=== PATIENT | male | born 1950 | race Caucasian/White ===

== ENCOUNTER 2016-06-29 19:40 | Emergency (ER) | payer MEDICARE ==
[~2016-06-29] VITALS: Ht 172.7 cm; Wt 106.6 kg
[~2016-06-29 19:40] MED LIST: /BACIOPOI OP; /CIPR75TA OR; /DULO30CA OR; /GLIP10TAB OR; /GLIP10TAB PO; /MOXI40TA OR; /MOXI40TA PO; /PANT40TA PO; ACET65TA OR; ACTO45TA OR; ACTO45TA PO; ALLO300T PO; ALPHAGAN OU; AMLO5TAB PO; ASPI1TAB PO; ASPI81TA83 OR; ASPI81TA83 PO; ATOR40TA PO; AVAP300T OR; AVAP300T PO; CEFT500T PO; CLEO300C OR; COLA100C2 OR; COSO1SOL3 OU; DUONSOL INH; FERR325T PO; FERROUS SULFATE PO; GLIP10TA13 PO; GLIP10TA58 PO; GLIP10TA97 OR; GLUC1000 PO; GLUC10TA18 PO; GLUC500T PO; HYDR25TA6 OR; HYDR25TA6 PO; HYDR25TAB PO; IMDU60TA OR; INSULADS SC; INSULANT SC; IRBE150T12 PO; ISMO20TA OR; ISMO20TA PO; ISOS120T4 PO; LIPI20TA PO; Levemir SC; Lumigan OU; METAMUCIL PO; METF500T PO; METO-207 PO; METOPROLOL SUCCINATE PO; NITR0.4S SL; NORV5TAB OR; OCEAN NASAL SPRAY; PANT40TA2 PO; PATA2.5S OU; PATANOL OPTHALMIC OU; PATANOL OU; PLAV75TA2 PO; PRED10TA2 PO; RANE1000 PO; ROBITUSSIN PO; TOPR100T OR; TOPR25TA OR; TOPR25TA PO; TUSSSUS5 OR; VENL37TA PO; Vitamin D2 PO; [UNRECOGNIZED DRUG - CODE] OU; [UNRECOGNIZED DRUG - OTHER] PO; levemir SQ; lumigan; nitro SL; timolol; vitamin D2 PO
[2016-06-29 20:47] VITALS: BP 158/83
== END 2016-06-29 20:48 | disposition home or self-care (01) ==
LOC: M ED 20:32
DX: T17.920A Food in respiratory tract, part unspecified causing asphyxiation, initial encounter (principal); X58.XXXA Exposure to other specified factors, initial encounter; Y92.511 Restaurant or cafe as the place of occurrence of the external cause; Y93.89 Activity, other specified; Y99.8 Other external cause status; E11.9 Type 2 diabetes mellitus without complications; I10 Essential (primary) hypertension; G47.30 Sleep apnea, unspecified; Z93.0 Tracheostomy status; Z95.5 Presence of coronary angioplasty implant and graft; Z91.041 Radiographic dye allergy status; Z91.040 Latex allergy status; Z79.84 Long term (current) use of oral hypoglycemic drugs; Z79.899 Other long term (current) drug therapy; Z79.82 Long term (current) use of aspirin; Z79.4 Long term (current) use of insulin

== ENCOUNTER 2016-07-13 11:11 | Emergency (ER) | payer MEDICARE ==
[~2016-07-13] VITALS: Ht 177.8 cm; Wt 107.0 kg
[2016-07-13] MEDS ORDERED: TRUL0.5I SC (11:40)
[2016-07-13] MEDS ORDERED: KETOROLAC 30 MG/ML VIAL (J1885) IV ONE (12:30)
[2016-07-13] MEDS ORDERED: ONDANSETRON 4MG/2ML VIAL (J2405) IV ONE (12:30)
--- NOTE | 2016-07-13 13:16 | REP ---
Clinical: Left lower quadrant pain. Comparison: 01/10/2016. Findings: Lung bases clear. Liver, spleen, pancreas, and bilateral adrenal glands are normal. Gallbladder demonstrates a single 2 mm gallstone. Kidneys demonstrate few bilateral nonobstructing calculi measuring up to 6 mm without perinephric stranding or hydroureteronephrosis and no obstructing ureteral calculi. The enteric system is without obstruction or acute inflammatory process. Sigmoid diverticulosis noted without acute diverticulitis. Pelvis demonstrates normal bladder and age appropriate prostate/seminal vesicles. No free air. No ascites. No adenopathy. Abdominal aorta without aneurysm. Musculoskeletal structures intact. Impression: 1. No acute intra-abdominal or pelvic pathology appreciated 2. Bilateral nephrolithiasis up to 6 mm without acute obstruction. 3. Sigmoid diverticula without acute diverticulitis. 4. Cholelithiasis without acute cholecystitis. Signed by Harjit Silva MD 07/13/2016 01:07 P
[2016-07-13 13:33] LABS: BASO # 0.1 K/mm3 (0.0-0.2); BASO % 0.7 % (0.0-1.0); EOS # 0.1 K/mm3 (0.0-0.50); LARGE UNSTAINED CELL # 0.2 K/mm3 (0.0-0.4); LARGE UNSTAINED CELL % 1.8 % (0.0-4.0); LYMPH % 22.3 % (24.0-44.0); MEAN CORPUSCULAR HEMOGLOBIN 28.6 pg (27.0-33.0); MEAN CORPUSCULAR HGB CONC 34.9 g/dl (32.0-36.5); MONO # 0.6 K/mm3 (0.0-0.8); MONO % 6.4 % (0.0-5.0); NEUTROPHILS # 6.2 K/mm3 (1.8-7.7); NEUTROPHILS % 67.9 % (36.0-66.0); PLATELET COUNT, AUTOMATED 275 k/mm3 (150-450); RED CELL DISTRIBUTION WIDTH 13.2 % (11.5-14.5); WHITE BLOOD COUNT 9.1 K/mm3 (4.0-10.0)
[2016-07-13 13:54] LABS: ALBUMIN 4.2 GM/DL (3.2-5.2); ALBUMIN/GLOBULIN RATIO 1.27 (1.00-1.93); ALKALINE PHOSPHATASE 63 U/L (45-117); ALT/SGPT 24 U/L (12-78); ANION GAP 9 MEQ/L (8-16); AST/SGOT 13 U/L (15-37); BILIRUBIN,DIRECT 0.2 MG/DL (0.0-0.2); BILIRUBIN,TOTAL 0.7 MG/DL (0.2-1.0); BLOOD UREA NITROGEN 13 MG/DL (7-18); CALCIUM LEVEL 9.5 MG/DL (8.8-10.2); CARBON DIOXIDE LEVEL 26 MEQ/L (21-32); CHLORIDE LEVEL 106 MEQ/L (98-107); CREATININE FOR GFR 0.83 MG/DL (0.70-1.30); GLOMERULAR FILTRATION RATE > 60.0 (>49); GLUCOSE, FASTING 93 MG/DL (80-110); POTASSIUM SERUM 3.7 MEQ/L (3.5-5.1); SODIUM LEVEL 141 MEQ/L (136-145); TOTAL PROTEIN 7.5 GM/DL (6.4-8.2)
[2016-07-13] MEDS ORDERED: ZOFR4TAB3 PO (13:59)
[2016-07-13 14:24] VITALS: BP 145/75
== END 2016-07-13 14:25 | disposition home or self-care (01) ==
LOC: M ED 11:57
DX: A09 Infectious gastroenteritis and colitis, unspecified (principal); I25.10 Atherosclerotic heart disease of native coronary artery without angina pectoris; Z87.442 Personal history of urinary calculi; Z91.041 Radiographic dye allergy status; Z91.040 Latex allergy status; Z79.899 Other long term (current) drug therapy; Z79.84 Long term (current) use of oral hypoglycemic drugs; Z79.82 Long term (current) use of aspirin; K42.9 Umbilical hernia without obstruction or gangrene; G47.30 Sleep apnea, unspecified; I10 Essential (primary) hypertension; E11.9 Type 2 diabetes mellitus without complications; F41.9 Anxiety disorder, unspecified; F32.9 Major depressive disorder, single episode, unspecified
CPT/HCPCS: 36415; 74176; 80048; 80076; 81001; 83690; 85025; 87086; 96374; 96375; 99282; J1885; J2405

== ENCOUNTER 2016-09-21 11:36 | Emergency (ER) | payer MEDICARE ==
[~2016-09-21] VITALS: Ht 175.3 cm; Wt 104.3 kg
[~2016-09-21 11:36] MED LIST changes: +TRUL0.5I SC; +ZOFR4TAB3 PO
[2016-09-21] MEDS ORDERED: NITR0.4S14 SL (12:04)
[2016-09-21 12:14] LABS: BASO % 0.4 % (0.0-1.0); EOS # 0.1 K/mm3 (0.0-0.50); EOS % 1.5 % (0.0-3.0); LARGE UNSTAINED CELL # 0.1 K/mm3 (0.0-0.4); LARGE UNSTAINED CELL % 1.8 % (0.0-4.0); MEAN CORPUSCULAR HEMOGLOBIN 28.5 pg (27.0-33.0); MEAN CORPUSCULAR HGB CONC 34.6 g/dl (32.0-36.5); MEAN CORPUSCULAR VOLUME 82.3 fl (80.0-96.0); MONO # 0.5 K/mm3 (0.0-0.8); MONO % 6.2 % (0.0-5.0); NEUTROPHILS # 4.7 K/mm3 (1.8-7.7); NEUTROPHILS % 64.2 % (36.0-66.0); PLATELET COUNT, AUTOMATED 233 k/mm3 (150-450); RED CELL DISTRIBUTION WIDTH 12.8 % (11.5-14.5); WHITE BLOOD COUNT 7.2 K/mm3 (4.0-10.0)
[2016-09-21] MEDS ORDERED: ONDANSETRON 4MG/2ML VIAL (J2405) IV ONE (12:30)
[2016-09-21] MEDS ORDERED: MORPHINE 4 MG/ML 1ML SYRINGE IV PRN (12:30)
[2016-09-21 12:39] LABS: ANION GAP 10 MEQ/L (8-16); BLOOD UREA NITROGEN 20 MG/DL (7-18); CALCIUM LEVEL 9.7 MG/DL (8.8-10.2); CARBON DIOXIDE LEVEL 25 MEQ/L (21-32); CHLORIDE LEVEL 104 MEQ/L (98-107); CREATININE FOR GFR 0.85 MG/DL (0.70-1.30); GLOMERULAR FILTRATION RATE > 60.0 (>49); GLUCOSE, FASTING 122 MG/DL (80-110); POTASSIUM SERUM 3.6 MEQ/L (3.5-5.1); SODIUM LEVEL 139 MEQ/L (136-145)
[2016-09-21] MEDS: HYDROmorphone HCL 1 MG/ML SYRINGE (J1170) IV PRN ×2 (13:44→15:21)
--- NOTE | 2016-09-21 17:29 | REP ---
On portable chest, 06:15 p.m., 09/21/2016: Comparison is 06/14/2015. Tracheostomy and cardiomegaly are unchanged. Lung russ are clear. The lizbet, mediastinum, bony thorax are unremarkable. Impression: There are no acute cardiopulmonary findings. Tracheostomy and cardiomegaly are unchanged. Signed by Khalif Valdez MD 09/21/2016 05:20 P
[2016-09-21 18:36] VITALS: BP 128/69
--- NOTE | 2016-09-23 07:03 | ECGEPIP ---
Stationary ECG Study [facility] - ED Test Date: 2016-09-21 Pat Name: TARSHA GARRISON Department: Room: - Gender: M Drugless Physician: PB : 1950 Requested By: Myra Blake Order Number: [id number] Reading MD: Myra Blake Measurements Intervals [place] Rate: 60 P: -7 SC: 211 QRS: -29 QRSD: 105 T: 11 QT: 414 QTc: 414 Interpretive Statements SINUS RHYTHM WITH FIRST DEGREE AV BLOCK BORDERLINE LEFT AXIS DEVIATION NSTTW ABNORMALITY SIMILAR 01/10/16 Electronically Signed On 09-23-2016 7:03:24 EDT by Myra Blake
== END 2016-09-21 19:22 | disposition home or self-care (01) ==
LOC: M ED 12:18
DX: R07.9 Chest pain, unspecified (principal); E11.9 Type 2 diabetes mellitus without complications; I10 Essential (primary) hypertension; E78.5 Hyperlipidemia, unspecified; I25.10 Atherosclerotic heart disease of native coronary artery without angina pectoris; G47.30 Sleep apnea, unspecified; Z95.5 Presence of coronary angioplasty implant and graft; Z79.899 Other long term (current) drug therapy; Z79.82 Long term (current) use of aspirin; Z79.84 Long term (current) use of oral hypoglycemic drugs; Z79.4 Long term (current) use of insulin; Z91.040 Latex allergy status; Z91.041 Radiographic dye allergy status
CPT/HCPCS: 71010; 80048; 82550; 82553; 84484; 85025; 93005; 93041; 94760; 96374; 96375; 96376; 99285; J1170; J2405

== ENCOUNTER 2016-10-30 10:56 | Emergency (ER) | payer MEDICARE ==
[~2016-10-30] VITALS: Ht 175.3 cm; Wt 106.2 kg
[~2016-10-30 10:56] MED LIST changes: -ATOR40TA PO; +ATOR40TA75 PO; -GLIP10TA13 PO; -GLIP10TA58 PO; +GLIP1TAB11 PO; +GLIP1TAB51 PO; -METF500T PO; +METF500T13 PO; -METO-207 PO; +METO1TAB7 PO; +NITR0.4S14 SL
[2016-10-30] MEDS ORDERED: SODIUM CHLORIDE 0.9% 3ML NEB SOLUTION FOR INHALATION INH ONE (11:15)
[2016-10-30] MEDS: NITROGLYCERIN 0.4 MG SUBL TABLET SL PRN ×3 (11:42→12:07)
[2016-10-30 12:07] VITALS: BP 128/60
[2016-10-30 12:10] LABS: BASO % 0.5 % (0.0-1.0); EOS # 0.1 K/mm3 (0.0-0.50); EOS % 1.2 % (0.0-3.0); LARGE UNSTAINED CELL # 0.1 K/mm3 (0.0-0.4); LARGE UNSTAINED CELL % 1.1 % (0.0-4.0); LYMPH # 1.5 K/mm3 (1.5-4.5); LYMPH % 19.6 % (24.0-44.0); MEAN CORPUSCULAR HEMOGLOBIN 28.2 pg (27.0-33.0); MEAN CORPUSCULAR HGB CONC 34.4 g/dl (32.0-36.5); MEAN CORPUSCULAR VOLUME 81.8 fl (80.0-96.0); MONO # 0.4 K/mm3 (0.0-0.8); MONO % 5.6 % (0.0-5.0); NEUTROPHILS # 5.2 K/mm3 (1.8-7.7); PLATELET COUNT, AUTOMATED 231 k/mm3 (150-450); RED CELL DISTRIBUTION WIDTH 13.3 % (11.5-14.5); WHITE BLOOD COUNT 7.3 K/mm3 (4.0-10.0)
[2016-10-30 12:29] LABS: ANION GAP 11 MEQ/L (8-16); BLOOD UREA NITROGEN 17 MG/DL (7-18); CALCIUM LEVEL 9.1 MG/DL (8.8-10.2); CARBON DIOXIDE LEVEL 21 MEQ/L (21-32); CHLORIDE LEVEL 107 MEQ/L (98-107); GLOMERULAR FILTRATION RATE > 60.0 (>49); GLUCOSE, FASTING 155 MG/DL (80-110); POTASSIUM SERUM 3.6 MEQ/L (3.5-5.1); SODIUM LEVEL 139 MEQ/L (136-145)
--- NOTE | 2016-10-30 12:36 | REP ---
PORTABLE CHEST: AP portable view of the chest is performed. Comparison 09/21/2016. There is cardiomegaly. Mediastinal silhouette is unchanged. There is no acute infiltrate. There is a tracheostomy tube again noted. IMPRESSION: Cardiomegaly. No acute infiltrate. Signed by Khalif Agee MD 10/30/2016 05:08 P
[2016-10-30 15:07] VITALS: BP 120/70
--- NOTE | 2016-10-31 18:19 | ECGEPIP ---
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
--- NOTE | 2016-10-31 18:20 | ECGEPIP ---
Stationary ECG Study [facility] - ED Test Date: 2016-10-30 Pat Name: TARSHA GARRISON Department: Room: - Gender: M Intermediate Frame Tender: susan : 1950 Requested By: David Hurt Order Number: [id number] Reading MD: Myra Blake Measurements Intervals [place] Rate: 56 P: 47 MA: 217 QRS: -21 QRSD: 107 T: 12 QT: 425 QTc: 411 Interpretive Statements SINUS BRADYCARDIA WITH FIRST DEGREE AV BLOCK BORDERLINE LEFT AXIS DEVIATION ?PRIOR INFERIOR INFARCT SIMIALR 10/30/16 11:42 Electronically Signed On 10-31-2016 18:19:49 EDT by Myra Blake
== END 2016-10-30 15:10 | disposition home or self-care (01) ==
LOC: M ED 10:56
DX: J70.5 Respiratory conditions due to smoke inhalation (principal); I25.10 Atherosclerotic heart disease of native coronary artery without angina pectoris; E11.9 Type 2 diabetes mellitus without complications; G47.33 Obstructive sleep apnea (adult) (pediatric); Z98.61 Coronary angioplasty status

== ENCOUNTER 2017-07-01 03:30 | Emergency (ER) | payer MEDICARE ==
[2017-07-01 04:22] LABS: BASO % 0.4 % (0.0-1.0); EOS # 0.1 10^3/uL (0.0-0.50); EOS % 1.1 % (0.0-3.0); HEMATOCRIT 38.4 % (42.0-52.0); HEMOGLOBIN 13.1 g/dl (14.0-18.0); IMMATURE GRANULOCYTE % 0.6 % (0-3.0); LYMPH # 1.5 10^3/uL (1.5-4.5); LYMPH % 16.2 % (24.0-44.0); MEAN CORPUSCULAR HEMOGLOBIN 28.1 pg (27.0-33.0); MEAN CORPUSCULAR HGB CONC 34.1 g/dl (32.0-36.5); MEAN CORPUSCULAR VOLUME 82.4 fl (80.0-96.0); MONO # 0.6 10^3/uL (0.0-0.8); MONO % 6.1 % (0.0-5.0); NEUTROPHILS # 6.8 10^3/uL (1.8-7.7); NEUTROPHILS % 75.6 % (36.0-66.0); PLATELET COUNT, AUTOMATED 237 10^3/uL (150-450); RED BLOOD COUNT 4.66 10^6/uL (4.30-6.10); RED CELL DISTRIBUTION WIDTH 12.6 % (11.5-14.5)
[2017-07-01 04:37] LABS: ANION GAP 10 MEQ/L (8-16); BLOOD UREA NITROGEN 19 MG/DL (7-18); CALCIUM LEVEL 8.7 MG/DL (8.8-10.2); CARBON DIOXIDE LEVEL 24 MEQ/L (21-32); CHLORIDE LEVEL 106 MEQ/L (98-107); CPK CREATINE PHOSPHOKINASE 113 U/L (39-308); CREATININE FOR GFR 1.01 MG/DL (0.70-1.30); GLOMERULAR FILTRATION RATE > 60.0 (>49); GLUCOSE, FASTING 253 MG/DL (70-100); MB/CK RELATIVE INDEX 0.88 (< OR =4); POTASSIUM SERUM 3.9 MEQ/L (3.5-5.1); SODIUM LEVEL 140 MEQ/L (136-145); TROPONIN I < 0.02 NG/ML (< 0.10)
[2017-07-01] MEDS: PANTOPRAZOLE 40MG INJ (PROTONIX) (C9113) IV (10:03)
[2017-07-01] MEDS: NITROGLYCERIN 0.4 MG SUBL TABLET SL ×3 (10:04→10:17)
[2017-07-01 10:11] LABS: CPK CREATINE PHOSPHOKINASE 76 U/L (39-308); MB/CK RELATIVE INDEX 1.31 (< OR =4); TROPONIN I < 0.02 NG/ML (< 0.10)
== END 2017-07-01 12:43 | disposition home or self-care (01) ==
LOC: M ED 03:30
DX: R07.89 Other chest pain (principal); F43.0 Acute stress reaction; I25.10 Atherosclerotic heart disease of native coronary artery without angina pectoris; E11.9 Type 2 diabetes mellitus without complications; I10 Essential (primary) hypertension; G47.33 Obstructive sleep apnea (adult) (pediatric); Z79.899 Other long term (current) drug therapy; Z79.82 Long term (current) use of aspirin; Z79.84 Long term (current) use of oral hypoglycemic drugs; Z91.041 Radiographic dye allergy status; Z91.040 Latex allergy status; Z95.1 Presence of aortocoronary bypass graft; Z98.890 Other specified postprocedural states; Z82.49 Family history of ischemic heart disease and other diseases of the circulatory system
CPT/HCPCS: C9113

== ENCOUNTER → 2018-06-03 | Outpatient (CLI) | payer MEDICARE ==
[~2018-06-03] MED LIST changes: +GLIP10TA18 PO; -GLIP1TAB51 PO; -PANT40TA2 PO; +PANT40TA3 PO; -TOPR25TA PO; +TOPR25TA13 PO; +ZOFR4TAB14 PO; -ZOFR4TAB3 PO
--- NOTE | 2018-06-03 11:58 | REP ---
Left shoulder three views: There are calcifications adjacent to the humeral tuberosities compatible with calcific tendonitis. Mineralization is normal. The acromioclavicular glenohumeral articulations are unremarkable. There is no fracture or dislocation. Impression: Calcifications as described, compatible with calcific tendonitis. Electronically Signed by Khalif Valdez MD 06/03/2018 11:50 A
== END ==
LOC: M WUC 10:17
PROVIDERS: ATTEND Physician Assistant
DX: M25.512 Pain in left shoulder (principal); M75.32 Calcific tendinitis of left shoulder

== ENCOUNTER → 2018-11-14 | Outpatient (CLI) | payer MEDICARE ==
[~2018-11-14] MED LIST changes: -/DULO30CA OR; -/MOXI40TA OR; -/MOXI40TA PO; -/PANT40TA PO; -ASPI1TAB PO; +ASPI81TA26 PO; +AVEL1TAB2 OR; +AVEL1TAB2 PO; +CYMB1CAP5 OR; +HYDR-2541 PO; -HYDR25TAB PO; -ISOS120T4 PO; +ISOS120T7 PO; +METO-1 OR; +METO-745 OR; +PROT1TAB2 PO; -TOPR100T OR; -TOPR25TA OR; +TOPR25TA PO; -TOPR25TA13 PO
--- NOTE | 2018-11-14 17:10 | REP ---
PA and lateral chest: Comparison is 05/24/2015. There are no infiltrates. No pleural effusions. The lung russ are clear and unchanged. There is chronic cardiomegaly, unchanged. The lizbet, mediastinum, skeletal structures are unremarkable and unchanged. There is a tracheostomy, unchanged. Impression: There are no acute cardiopulmonary findings. There is chronic cardiomegaly. There is a tracheostomy, unchanged. Electronically Signed by Khalif Valdez MD 11/14/2018 05:02 P
== END ==
LOC: M WUC 16:10
PROVIDERS: ATTEND Physician Assistant
DX: R05 Cough (principal)

== ENCOUNTER → 2019-01-20 | Outpatient (REF) | payer MEDICARE ==
[~2019-01-20] MED LIST changes: +CLOP75TA2 PO; +HYDR25TAB PO; +LATA0.0015 OU; +LEVO500T3 PO; +OXYC1TAB23 PO; +TIMO0.5S29; +[UNRECOGNIZED DRUG - OTHER]
== END ==
LOC: M LAB REF 16:01
PROVIDERS: ATTEND Physician Assistant Medical
DX: Z93.0 Tracheostomy status (principal)

== ENCOUNTER 2019-01-27 15:18 | Emergency (ER) | payer MEDICARE ==
[~2019-01-27] VITALS: Ht 172.7 cm; Wt 103.2 kg
[~2019-01-27 15:18] MED LIST changes: -CLOP75TA2 PO; -HYDR25TAB PO; -LATA0.0015 OU; -LEVO500T3 PO; -OXYC1TAB23 PO; -TIMO0.5S29; -[UNRECOGNIZED DRUG - OTHER]
[2019-01-27] MEDS ORDERED: TIMO0.5S29 (15:36)
[2019-01-27] MEDS ORDERED: LATA0.0015 OU (15:36)
[2019-01-27] MEDS ORDERED: LEVO500T3 PO (15:36)
[2019-01-27 16:00] LABS: BASO % 0.6 % (0.0-1.0); EOS # 0.2 10^3/uL (0.0-0.5); EOS % 2.1 % (0.0-3.0); HEMATOCRIT 38.9 % (42.0-52.0); HEMOGLOBIN 13.2 g/dl (13.5-17.5); LYMPH % 27.9 % (24.0-44.0); MEAN CORPUSCULAR HEMOGLOBIN 28.4 pg (27.0-33.0); MEAN CORPUSCULAR HGB CONC 33.9 g/dl (32.0-36.5); MEAN CORPUSCULAR VOLUME 83.7 fl (80.0-96.0); MONO # 0.7 10^3/uL (0.0-0.8); MONO % 9.5 % (0.0-5.0); NEUTROPHILS # 4.3 10^3/uL (1.5-8.5); NEUTROPHILS % 59.3 % (36.0-66.0); PLATELET COUNT, AUTOMATED 228 10^3/uL (150-450); RED BLOOD COUNT 4.65 10^6/uL (4.30-6.10); WHITE BLOOD COUNT 7.2 10^3/uL (4.0-10.0)
[2019-01-27 16:42] LABS: ALBUMIN 3.4 GM/DL (3.2-5.2); ALT/SGPT 26 U/L (12-78); BILIRUBIN,DIRECT 0.1 MG/DL (0.0-0.2); BILIRUBIN,TOTAL 0.6 MG/DL (0.2-1.0); BLOOD UREA NITROGEN 19 MG/DL (7-18); CALCIUM LEVEL 8.8 MG/DL (8.8-10.2); CARBON DIOXIDE LEVEL 25 MEQ/L (21-32); CHLORIDE LEVEL 106 MEQ/L (98-107); CK-MB VALUE MASS < 1.0 NG/ML (<3.6); CPK CREATINE PHOSPHOKINASE 81 U/L (39-308); CREATININE FOR GFR 0.86 MG/DL (0.70-1.30); GLOMERULAR FILTRATION RATE > 60.0 (>49); GLUCOSE, FASTING 95 MG/DL (70-100); LIPASE 98 U/L (73-393); MB/CK RELATIVE INDEX 1.23 (< OR =4); NT-PRO BNP 293 PG/ML (<125); POTASSIUM SERUM 3.8 MEQ/L (3.5-5.1); SODIUM LEVEL 142 MEQ/L (136-145); TOTAL PROTEIN 6.5 GM/DL (6.4-8.2); TROPONIN I < 0.02 NG/ML (< 0.10)
--- NOTE | 2019-01-27 17:24 | REP ---
PORTABLE CHEST: AP portable view of the chest was performed and compared to prior study of 11/14/2018. There is elevation of the right hemidiaphragm. No infiltrate is seen. There is cardiomegaly. There is mild calcification of the thoracic aorta. Tracheostomy tube is in place. IMPRESSION: Cardiomegaly. No evidence of acute infiltrate. Electronically Signed by Khalif Agee MD 01/27/2019 11:51 P
[2019-01-27] MEDS: NITROGLYCERIN 0.4 MG SUBL TABLET SL PRN ×2 (18:15→18:23)
[2019-01-27 18:23] VITALS: BP 150/70
[2019-01-27] MEDS ORDERED: GI COCKTAIL 50ML BTL(HYOSCYAMINE/MAALOX/LIDOCAINE VISCOUS)(1:3:1) PO ONE (18:30)
[2019-01-27 21:36] LABS: CK-MB VALUE MASS < 1.0 NG/ML (<3.6); CPK CREATINE PHOSPHOKINASE 80 U/L (39-308); MB/CK RELATIVE INDEX 1.25 (< OR =4); TROPONIN I < 0.02 NG/ML (< 0.10)
[2019-01-27 22:41] VITALS: BP 164/82
--- NOTE | 2019-01-28 00:52 | ECGEPIP ---
[facility] - ED Test Date: 2019-01-27 Pat Name: TARSHA GARRISON Department: Room: - Gender: Male Photogrammetric Tech: milan : 1950 Requested By: Myra Blake Order Number: [id number] Reading MD: Joe Osman Measurements Intervals [place] Rate: 47 P: 27 CT: 196 QRS: -35 QRSD: 109 T: 6 QT: 456 QTc: 403 Interpretive Statements SINUS BRADYCARDIA Left axis deviation Delayed anterior R wave progression Inferior Q waves of uncertain significance Similar to tracing done 07-01-17 with decreased rate Electronically Signed on 01-28-2019 0:52:34 EDT by Joe Osman
--- NOTE | 2019-01-28 01:01 | ECGEPIP ---
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
== END 2019-01-27 22:43 | disposition home or self-care (01) ==
LOC: M ED 15:18
DX: R07.89 Other chest pain (principal); R00.1 Bradycardia, unspecified; I45.89 Other specified conduction disorders; I25.10 Atherosclerotic heart disease of native coronary artery without angina pectoris; I51.7 Cardiomegaly; I50.9 Heart failure, unspecified; I10 Essential (primary) hypertension; E78.5 Hyperlipidemia, unspecified; F32.9 Major depressive disorder, single episode, unspecified; G89.29 Other chronic pain; M54.9 Dorsalgia, unspecified; G47.33 Obstructive sleep apnea (adult) (pediatric); Z95.5 Presence of coronary angioplasty implant and graft; Z98.61 Coronary angioplasty status; Z82.49 Family history of ischemic heart disease and other diseases of the circulatory system; Z79.82 Long term (current) use of aspirin; Z79.84 Long term (current) use of oral hypoglycemic drugs; Z79.899 Other long term (current) drug therapy; Z91.041 Radiographic dye allergy status; Z91.040 Latex allergy status

== ENCOUNTER 2019-02-01 12:06 | Emergency (ER) | payer MEDICARE ==
[~2019-02-01] VITALS: Ht 172.7 cm; Wt 100.0 kg
[~2019-02-01 12:06] MED LIST changes: +LATA0.0015 OU; +LEVO500T3 PO; +TIMO0.5S29
[2019-02-01] MEDS ORDERED: CLOP75TA2 PO (12:14)
[2019-02-01 12:34] LABS: BASO # 0.1 10^3/uL (0.0-0.2); BASO % 0.6 % (0.0-1.0); EOS # 0.1 10^3/uL (0.0-0.5); EOS % 1.3 % (0.0-3.0); HEMATOCRIT 41.2 % (42.0-52.0); HEMOGLOBIN 14.4 g/dl (13.5-17.5); LYMPH # 1.7 10^3/uL (1.5-5.0); LYMPH % 21.4 % (24.0-44.0); MEAN CORPUSCULAR HEMOGLOBIN 29.1 pg (27.0-33.0); MEAN CORPUSCULAR VOLUME 83.2 fl (80.0-96.0); MONO # 0.7 10^3/uL (0.0-0.8); MONO % 9.2 % (0.0-5.0); NEUTROPHILS # 5.2 10^3/uL (1.5-8.5); PLATELET COUNT, AUTOMATED 240 10^3/uL (150-450); RED BLOOD COUNT 4.95 10^6/uL (4.30-6.10); WHITE BLOOD COUNT 7.8 10^3/uL (4.0-10.0)
[2019-02-01] MEDS: NITROGLYCERIN 0.4 MG SUBL TABLET SL PRN ×3 (12:38→12:55)
[2019-02-01 12:55] VITALS: BP 141/74
[2019-02-01 13:00] LABS: INR 0.98; PROTHROMBIN TIME 12.6 SECONDS (11.8-14.0)
[2019-02-01 13:07] LABS: BLOOD UREA NITROGEN 23 MG/DL (7-18); CALCIUM LEVEL 9.4 MG/DL (8.8-10.2); CARBON DIOXIDE LEVEL 27 MEQ/L (21-32); CHLORIDE LEVEL 109 MEQ/L (98-107); CK-MB VALUE MASS < 1.0 NG/ML (<3.6); CPK CREATINE PHOSPHOKINASE 61 U/L (39-308); CREATININE FOR GFR 0.96 MG/DL (0.70-1.30); GLOMERULAR FILTRATION RATE > 60.0 (>49); GLUCOSE, FASTING 94 MG/DL (70-100); MB/CK RELATIVE INDEX 1.64 (< OR =4); POTASSIUM SERUM 3.8 MEQ/L (3.5-5.1); SODIUM LEVEL 143 MEQ/L (136-145); TROPONIN I < 0.02 NG/ML (< 0.10)
[2019-02-01] MEDS ORDERED: MORPHINE 4 MG/ML 1ML VIAL/SYRINGE (J2270) IV ONE (13:15)
--- NOTE | 2019-02-01 13:36 | REP ---
REASON FOR EXAM: Chest pain. COMPARISON: 01/27/2019 The technique utilized in obtaining the radiograph has magnified the cardiac silhouette and accentuated the interstitial markings. There is cardiomegaly accentuated by technique. The tracheotomy is unchanged. The lung russ are stable. No acute patchy parenchymal opacities or pleural effusions have developed. IMPRESSION: Cardiomegaly with no acute cardiopulmonary disease. No change from the prior exam. Electronically Signed by Howie Mccarty DO 02/01/2019 01:39 P
[2019-02-01] MEDS ORDERED: MORPHINE 2 MG/ML 1ML SYRINGE (J2270) IV ONE ×2 (14:45→17:30)
[2019-02-01 16:49] LABS: CK-MB VALUE MASS < 1.0 NG/ML (<3.6); CPK CREATINE PHOSPHOKINASE 48 U/L (39-308); MB/CK RELATIVE INDEX 2.08 (< OR =4); TROPONIN I < 0.02 NG/ML (< 0.10)
[2019-02-01] MEDS ORDERED: LABETALOL HCL 100 MG/20 ML VIAL IV STA (17:45)
[2019-02-01 19:03] VITALS: BP 147/71
--- NOTE | 2019-02-02 18:51 | ECGEPIP ---
[facility] - ED Test Date: 2019-02-01 Pat Name: TARSHA GARRISON Department: Room: - Gender: Male Wiper Blender: PMO : 1950 Requested By: David Hurt Order Number: [id number] Reading MD: Joe Osman Measurements Intervals [place] Rate: 53 P: 27 CT: 210 QRS: -54 QRSD: 99 T: 33 QT: 437 QTc: 410 Interpretive Statements SINUS BRADYCARDIA WITH FIRST DEGREE AV BLOCK MARKED LEFT AXIS DEVIATION INCOMPLETE RIGHT BUNDLE BRANCH BLOCK Delayed anterior R wave progression Rate increased from tracing done 01-27-19 Electronically Signed on 02-02-2019 18:51:20 EDT by Joe Osman
--- NOTE | 2019-02-02 18:59 | ECGEPIP ---
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
== END 2019-02-01 19:07 | disposition short-term general hospital (02) ==
LOC: M ED 12:06
DX: R07.9 Chest pain, unspecified (principal)

== ENCOUNTER 2019-02-04 12:03 | Inpatient (IN) | payer MEDICARE ==
[~2019-02-04] VITALS: Ht 172.7 cm; Wt 100.0 kg
[~2019-02-04 12:03] MED LIST changes: +CLOP75TA2 PO
[2019-02-04] MEDS ORDERED: NS 500 ML IV ONE (14:30)
[2019-02-04] MEDS ORDERED: ONDANSETRON 4MG/2ML VIAL (J2405) IV ONE (14:30)
[2019-02-04] MEDS ORDERED: MORPHINE 4 MG/ML 1ML VIAL/SYRINGE (J2270) IV ONE ×2 (14:30→15:30)
[2019-02-04] MEDS ORDERED: diphenhydrAMINE INJ 50MG/ML VIAL (J1200) IV STA (14:40)
[2019-02-04] MEDS ORDERED: methylPREDNISolone INJ 125 MG/2 ML VIAL (J2930) IV ONE (14:45)
[2019-02-04 15:08] LABS: BASO # 0.1 10^3/uL (0.0-0.2); BASO % 0.3 % (0.0-1.0); EOS % 0.1 % (0.0-3.0); HEMATOCRIT 44.8 % (42.0-52.0); LYMPH # 1.6 10^3/uL (1.5-5.0); LYMPH % 8.4 % (24.0-44.0); MEAN CORPUSCULAR HEMOGLOBIN 28.8 pg (27.0-33.0); MEAN CORPUSCULAR HGB CONC 33.5 g/dl (32.0-36.5); MEAN CORPUSCULAR VOLUME 86.2 fl (80.0-96.0); MONO # 1.9 10^3/uL (0.0-0.8); MONO % 10.3 % (0.0-5.0); NEUTROPHILS # 14.8 10^3/uL (1.5-8.5); NEUTROPHILS % 80.2 % (36.0-66.0); PLATELET COUNT, AUTOMATED 249 10^3/uL (150-450); WHITE BLOOD COUNT 18.5 10^3/uL (4.0-10.0)
[2019-02-04 15:34] LABS: ALBUMIN 3.9 GM/DL (3.2-5.2); BILIRUBIN,DIRECT 0.2 MG/DL (0.0-0.2); BILIRUBIN,TOTAL 0.8 MG/DL (0.2-1.0); CALCIUM LEVEL 9.4 MG/DL (8.8-10.2); CREATININE FOR GFR 1.39 MG/DL (0.70-1.30); GLOMERULAR FILTRATION RATE 53.9 (>49); POTASSIUM SERUM 4.3 MEQ/L (3.5-5.1); TOTAL PROTEIN 7.5 GM/DL (6.4-8.2)
[2019-02-04] MEDS ORDERED: ISOVUE-370 76% 100ML VIAL (Q9967) As Ordered ONE (15:51)
[2019-02-04] MEDS ORDERED: KETOROLAC 30 MG/ML VIAL (J1885) IV ONE (17:15)
--- NOTE | 2019-02-04 17:46 | REP ---
REASON FOR EXAM: Right lower quadrant pain. Assess for acute appendicitis. The latest prior for comparison is a noncontrast enhanced examination of 07/13/2016 and the latest contrast enhanced examination for comparison is 06/29/2015. CONTRAST: 100 mL Isovue-370. The lung bases are clear. The liver, gallbladder, spleen, pancreas, adrenal glands, and left kidney are essentially unchanged. Nonobstructive left nephroliths are noted status quo. There is a tiny unchanged left renal cortical cyst. There is a tiny cholelith which is also unchanged. There is significant perinephric stranding on the right. Within the upper pole wendy there is a 4 mm sized calcification. There is mild hydronephrosis and proximal hydroureter. In the proximal ureter there is a 6 mm sized ureterolith. Distal to the aforementioned ureterolith the right ureter is of normal caliber and without periureteral edema. There are no urinary bladder calcifications. There are bilateral pelvic phleboliths status quo. There is no free fluid or free air in the abdomen or pelvis. The intraabdominal and intrapelvic bowel loops and their mesenteries are essentially unchanged. There is chronic diverticulosis status quo. There is no significant change in the appearance of the osseous structures. IMPRESSION:1. There is obstructive uropathy on the right as described above. 2. Other bilateral non-obstructing renal calculi. 3. Chronic diverticulosis status quo. Electronically Signed by Howie Mccarty DO 02/04/2019 06:03 P
[2019-02-04] MEDS ORDERED: GLIP10TA18 PO (18:08)
[2019-02-04] MEDS ORDERED: HYDR25TAB PO (18:08)
[2019-02-04] MEDS ORDERED: [UNRECOGNIZED DRUG - OTHER] (18:08)
[2019-02-04] MEDS ORDERED: ACETAMINOPHEN TAB 650MG DOSE (2X325MG) PO PRN (18:15)
[2019-02-04] MEDS ORDERED: ONDANSETRON 4MG/2ML VIAL (J2405) IV PRN (18:30)
[2019-02-04] MEDS ORDERED: GLUCAGON FOR INJ 1 MG VIAL (J1610) SC PRN (18:30)
[2019-02-04] MEDS ORDERED: NITROGLYCERIN 0.4 MG SUBL TABLET SL PRN (18:30)
[2019-02-04] MEDS ORDERED: DEXTROSE 50% 50 ML SYRINGE IV PRN (18:30)
[2019-02-04] MEDS ORDERED: GLUCOSE 4 GM CHEW TABLET PO PRN (18:30)
--- NOTE | 2019-02-04 19:13 | HPEPDOC ---
General Date of Admission Feb 04, 2019 at 18:10 Date of Service: Feb 04, 2019 Chief Complaint The patient is a 68-year-old male admitted with a reason for visit of Right Ureteral Calculus. History of Present Illness This is a 68-year-old male who's had significant pain complaints. A few days ago he complained of chest and epigastric pain and pressure. He did present to this hospital and was transferred to [facility] where he underwent evaluation by coronary angiogram which was negative. Today, the patient developed vomiting and was brought again to the emergency room were he was found to have a right ureteral stone. The patient has had very poor appetite. He has not had any dysuria or hematuria. He denies any fever or chills. He reports having successfully passed other stones in the past. Home Medications Scheduled Aspirin (Aspirin EC) 81 Mg Tab, 81 MG PO DAILY, (Reported) Atorvastatin Calcium (Atorvastatin Calcium) 40 Mg Tab, 40 MG PO DAILY, (Reported) Clopidogrel Bisulfate (Clopidogrel) 75 Mg Tablet, 75 MG PO DAILY, (Reported) Dorzolamide HCl/Timolol Maleat (Cosopt Eye Drops) 1 Ml Soln, 1 DROP OU BID, (Reported) Dulaglutide (Trulicity) 1.5 Mg/0.5 Ml Inj, 1.5 MG SC 1XWK, (Reported) WED Glipizide (Glipizide ER) 10 Mg Tab.er.24, 10 MG PO DAILY, (Reported) Hydrochlorothiazide (Hydrochlorothiazide) 25 Mg Tablet, 25 MG PO DAILY, (Reported) Irbesartan (Irbesartan) 150 Mg Tab, 150 MG PO DAILY, (Reported) Isosorbide Mononitrate (Isosorbide Mononitrate ER) 120 Mg Tab, 60 MG PO QAM, (Reported) Latanoprost/Pf (Latanoprost 0.005% Eye Drop) 7.5 Ml Drops, 1 DROP OU QHS, (Reported) Metformin HCl (Metformin HCl) 500 Mg Tab, 1,000 MG PO BID, (Reported) Metoprolol Succinate (Metoprolol Succinate) 50 Mg Tab, 50 MG PO DAILY, (Reported) Olopatadine HCl (Patanol) 0.1 % Daisy, 1 DROP OU BID, (Reported) Pantoprazole Sodium (Pantoprazole Sodium) 40 Mg Tab, 40 MG PO DAILY, (Reported) Ranolazine (Ranexa) 1,000 Mg Tab, 1,000 MG PO DAILY, (Reported) Scheduled PRN Nitroglycerin (Nitroglycerin) 0.4 Mg Sub, 0.4 MG SL PRN PRN for CHEST PAIN, (Reported) Miscellaneous Medications [Comm] , (Reported) PT STATES THAT HE HASN'T TAKEN ANYTHING SINCE SUNDAY AT [facility]. CALLED [facility] TO CONFIRM MEDICATIONS Allergies Coded Allergies: latex (Verified Allergy, Intermediate, rash, 01/27/19) Contrast Media (Verified Adverse Reaction, Unknown, VIOLENT SNEEZING- CARDIAC CATH DYE, 01/27/19) Past Medical History Medical History Past medical history is remarkable for obstructive sleep apnea for which he's had a tracheostomy in the past, recurrent pneumonia, most recently this summer, tracheitis in the past, chronic diastolic congestive heart failure, coronary artery disease, iju-tatceue-exdomyzvj diabetes mellitus, gout, nephrolithiasis, dyslipidemia, gastroesophageal reflux disease, essential hypertension, depression. The patient also reports sustaining a tick bite in October or November of this year and describes a target lesion. He states he was told he was on appropriate antibiotics. Surgical History Surgical history includes hernia repair, tracheostomy. The patient also reports history of intervention for nephrolithiasis--he states he underwent stent placement complicated by "tearing" in the urinary tract. 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 Physical Examination General Exam: Positive: Mild Distress, Other (the patient is mildly sedated from receiving pain medication in the form of morphine.) Eye Exam: Positive: PERRLA, Conjunctiva & lids normal, Other Eye Symptoms (the patient has significant bilateral scleral injection) ENT Exam: Positive: Atraumatic, Nares Patent, Other ENT (oral mucosa is tacky) Neck Exam: Positive: Supple, Other (trach site is fully intact. Patient does not make use of CPAP or trach collar device); Negative: JVD, thyromegaly Chest Exam: Positive: Clear to auscultation, Normal air movement Heart Exam: Positive: Rate Normal, Normal S1, Normal S2, Murmurs (patient has at least a grade 3/6 systolic, vibratory murmur) Abdomen Exam: Positive: Normal bowel sounds, Soft, Tenderness, Other (notable central obesity, patient also exhibits right-sided flank pain to pressure palpation); Negative: Hepatospenomegaly Extremity Exam: Positive: Normal pulses; Negative: Clubbing, Cyanosis, Edema Skin Exam: Positive: Nl turgor and temperature; Negative: Breakdown, Lesion Neuro Exam: Positive: Normal Speech, Cranial Nerves 3-12 NL Psych Exam: Positive: Mental status NL, Oriented x 3, Other (patient is rather irritable) Vital Signs Vital Signs Date Time Temp Pulse Resp B/P (MAP) Pulse Ox O2 Delivery O2 Flow Rate FiO2 02/04/19 17:33 16 02/04/19 15:48 98.8 69 166/72 (103) 98 Room Air Laboratory Data Labs 24H Laboratory Tests 2 02/04/19 14:34: Urine Color YELLOW, Urine Appearance CLEAR, Urine pH 5.0, Urine Specific [place] 1.023, Urine Protein 1+H, Urine Glucose (UA) 1+H, Urine Ketones NEGATIVE, Urine Blood 1+H, Urine Nitrite NEGATIVE, Urine Bilirubin NEGATIVE, Urine Urobilinogen 0.2, Urine Leukocyte Esterase NEGATIVE, Urine WBC (Auto) 2, Urine RBC (Auto) 6H, Urine Hyaline Casts (Auto) 0, Urine Bacteria (Auto) NEGATIVE, Urine Squamous Epithelial Cells 0, Urine Mucus (Auto) SMALL, Urine Sperm (Auto) 02/04/19 15:00: Immature Granulocyte % (Auto) 0.7, Neutrophils (%) (Auto) 80.2H, Lymphocytes (%) (Auto) 8.4L, Monocytes (%) (Auto) 10.3H, Eosinophils (%) (Auto) 0.1, Basophils (%) (Auto) 0.3, Neutrophils # (Auto) 14.8H, Lymphocytes # (Auto) 1.6, Monocytes # (Auto) 1.9H, Eosinophils # (Auto) 0.0, Basophils # (Auto) 0.1, Nucleated Red Blood Cells % (auto) 0.0, Anion Gap 8, Glomerular Filtration Rate 53.9, Calcium Level 9.4, Total Bilirubin 0.8, Direct Bilirubin 0.2, Aspartate Amino Transf (AST/SGOT) 16, Alanine Aminotransferase (ALT/SGPT) 21, Alkaline Phosphatase 66, Total Protein 7.5, Albumin 3.9, Albumin/Globulin Ratio 1.08, Lipase 79 CBC/BMP Laboratory Tests 02/04/19 15:00 Assessment/Plan 1. Nephroureterolithiasis. The patient is noted to have a obstructing 6 mm stone to the right ureter. There is mild hydroureter. There is also mild right hydronephrosis. Additional small nonobstructing stones are noted to both kidneys. There are no stones noted to the bladder. The patient will received initial intervention with analgesics, IV hydration and antiemetics. We will continue to monitor the patient's renal function. Mechanical intervention will be per urology service. I have held the patient's aspirin and Plavix for now pending procedures. 2. Coronary artery disease. Patient does have known coronary artery disease for which he's undergone inte rvention with stent placement in the past. Recent angiogram does not show any current disease. We will continue his usual medications for management of his coronary artery disease and essential hypertension. 3. Yxl-vjdedkv-llywkdeas diabetes mellitus. The patient will be placed on sliding scale insulin for glycemic control. His metformin is held but will continue with his glipizide. 4. Obstructive sleep apnea. The patient had a tracheostomy placed a few years ago due to severe obstructive sleep apnea. He is currently stable; he does not utilize oxygen or any form of positive pressure ventilation. Plan / VTE VTE Prophylaxis Ordered?: Yes (subcutaneous heparin) Plan IVF: Initiate Diet: Continue Current Medications: Start Antibiotics Diagnostics: Check Labs, Repeat Labs in AM Anticipated Discharge: Home HANK VILLAFANA MD Feb 04, 2019 19:13
[2019-02-04] MEDS: HumaLOG INSULIN (NovoLOG) PER UNIT SC SCH (21:00)
[2019-02-04] MEDS: HEPARIN SOD (PORCINE) 5000 UNITS/ML VIAL SQ SCH (21:49)
[2019-02-04] MEDS: CIPROFLOXACIN 200 MG in IV 1 EA IV SCH (21:50)
[2019-02-04] MEDS: MORPHINE 4 MG/ML 1ML VIAL/SYRINGE (J2270) IV PRN (21:50)
[2019-02-04] MEDS: NS 1,000 ML IV SCH (21:51)
[2019-02-04] MEDS: LATANOPROST 0.005% OPHTH SOLN 2.5 ML OU SCH (21:51)
[2019-02-04] MEDS: OLOPATADINE 0.1% OPHTH SOL 5ML(PATANOL) OU SCH (21:51)
[2019-02-04] MEDS: COSOPT OCUMETER PLUS 10ML (DORZOLAMIDE/TIMOLOL) OU SCH (21:51)
[2019-02-04 23:15] VITALS: BP 178/83
[2019-02-05] VITALS (10 sets, daily range): BP systolic 135–162; BP diastolic 61–81
[2019-02-05] MEDS: MORPHINE 4 MG/ML 1ML VIAL/SYRINGE (J2270) IV PRN ×3 (04:13→14:33)
[2019-02-05] MEDS: HEPARIN SOD (PORCINE) 5000 UNITS/ML VIAL SQ SCH ×3 (05:44→21:00)
[2019-02-05 06:38] LABS: HEMATOCRIT 42.2 % (42.0-52.0); HEMOGLOBIN 14.1 g/dl (13.5-17.5); MEAN CORPUSCULAR HEMOGLOBIN 28.8 pg (27.0-33.0); MEAN CORPUSCULAR HGB CONC 33.4 g/dl (32.0-36.5); MEAN CORPUSCULAR VOLUME 86.1 fl (80.0-96.0); PLATELET COUNT, AUTOMATED 219 10^3/uL (150-450); WHITE BLOOD COUNT 11.2 10^3/uL (4.0-10.0)
[2019-02-05 06:57] LABS: CALCIUM LEVEL 8.2 MG/DL (8.8-10.2); CREATININE FOR GFR 1.46 MG/DL (0.70-1.30); POTASSIUM SERUM 4.5 MEQ/L (3.5-5.1)
[2019-02-05] MEDS: HumaLOG INSULIN (NovoLOG) PER UNIT SC SCH ×4 (07:30→21:01)
--- NOTE | 2019-02-05 08:02 | CR.PDOC ---
General Date of Consultation: Feb 05, 2019 Consultation REASON FOR CONSULTATION/CHIEF COMPLAINT: Right flank pain. HISTORY OF PRESENT ILLNESS: 68-year-old male with a several day history of right flank pain. Patient reports nausea but no vomiting. He denies fever or chills. Patient reports a prior history of stone disease. He has passed several stones spontaneously and in one instance required ureteroscopy and stent placement. He states his pain is poorly controlled with analgesics. His nausea has resolved. A CT scan was reviewed and a 6 mm right proximal ureteral stone was present with mild hydronephrosis. Patient had a recent admission to [facility] in [facility] for chest pain. Coronary angiogram was reported to be negative. ALLERGIES: Please see below. HOME MEDICATIONS: Please see below. PAST MEDICAL HISTORY: 1. Sleep apnea requiring tracheostomy. 2. Coronary artery disease. 3. Congestive heart failure 4. Hypertension 5. Diabetes mellitus 6. Gout PAST SURGICAL HISTORY: 1. Tracheostomy 2. Ureteroscopy 3. Herniorrhaphy 4. Cardiac stents REVIEW OF SYSTEMS: 10 point review of systems was reviewed from his admission history and physical and are noncontributory PHYSICAL EXAMINATION: VITAL SIGNS: Please see below. GENERAL APPEARANCE: Well-developed well-nourished male in no apparent distress. HEENT: Tracheostomy in place. RESPIRATORY: No respiratory distress. CARDIOVASCULAR: Mild peripheral edema. ABDOMEN: Obese nontender with mild right CVA tenderness. EXTREMITIES: Full range of motion. NEUROLOGICAL: No neurological deficits. LABORATORY DATA: Please see below. ASSESSMENT/PLAN: 1. Patient has a 6 mm right proximal ureteral stone with intractable pain. Treatment options were discussed including medical expulsive therapy or ureteroscopy with laser lithotripsy. We discussed due to the proximal nature of his stone ureteroscopy may not be possible and he may require a staged procedure placing a stent and returning in 1-2 weeks for definitive ureteroscopy. Patient wishes to proceed with interventional therapy. Material risks and potential complications were discussed. Vital Signs/I&O Vital Signs Date Time Temp Pulse Resp B/P (MAP) Pulse Ox O2 Delivery O2 Flow Rate FiO2 02/05/19 05:52 97.4 60 18 160/75 (103) 98 02/04/19 15:48 Room Air I&O- Last 24 Hours up to 6 AM 02/05/19 06:00 Intake Total 600 ml Output Total 600 ml Balance 0 ml Laboratory Data Labs 24H Laboratory Tests 2 02/04/19 14:34: Urine Color YELLOW, Urine Appearance CLEAR, Urine pH 5.0, Urine Specific [place] 1.023, Urine Protein 1+H, Urine Glucose (UA) 1+H, Urine Ketones NEGATIVE, Urine Blood 1+H, Urine Nitrite NEGATIVE, Urine Bilirubin NEGATIVE, Urine Urobilinogen 0.2, Urine Leukocyte Esterase NEGATIVE, Urine WBC (Auto) 2, Urine RBC (Auto) 6H, Urine Hyaline Casts (Auto) 0, Urine Bacteria (Auto) NEGATIVE, Urine Squamous Epithelial Cells 0, Urine Mucus (Auto) SMALL, Urine Sperm (Auto) 02/04/19 15:00: Immature Granulocyte % (Auto) 0.7, Neutrophils (%) (Auto) 80.2H, Lymphocytes (%) (Auto) 8.4L, Monocytes (%) (Auto) 10.3H, Eosinophils (%) (Auto) 0.1, Basophils (%) (Auto) 0.3, Neutrophils # (Auto) 14.8H, Lymphocytes # (Auto) 1.6, Monocytes # (Auto) 1.9H, Eosinophils # (Auto) 0.0, Basophils # (Auto) 0.1, Nucleated Red Blood Cells % (auto) 0.0, Anion Gap 8, Glomerular Filtration Rate 53.9, Calcium Level 9.4, Total Bilirubin 0.8, Direct Bilirubin 0.2, Aspartate Amino Transf (AST/SGOT) 16, Alanine Aminotransferase (ALT/SGPT) 21, Alkaline Phosphatase 66, Total Protein 7.5, Albumin 3.9, Albumin/Globulin Ratio 1.08, Lipase 79 02/04/19 21:27: Bedside Glucose (Misc Panel) 176H 02/05/19 06:24: Nucleated Red Blood Cells % (auto) 0.0, Anion Gap 7L, Glomerular Filtration Rate 51.0, Calcium Level 8.2L CBC/BMP Laboratory Tests 02/04/19 15:00 02/05/19 06:24 Allergies Coded Allergies: latex (Verified Allergy, Intermediate, rash, 01/27/19) Contrast Media (Verified Adverse Reaction, Unknown, VIOLENT SNEEZING- CARDIAC CATH DYE, 01/27/19) Home Medications Scheduled Aspirin (Aspirin EC) 81 Mg Tab, 81 MG PO DAILY, (Reported) Atorvastatin Calcium (Atorvastatin Calcium) 40 Mg Tab, 40 MG PO DAILY, (Reported) Clopidogrel Bisulfate (Clopidogrel) 75 Mg Tablet, 75 MG PO DAILY, (Reported) Dorzolamide HCl/Timolol Maleat (Cosopt Eye Drops) 1 Ml Soln, 1 DROP OU BID, (Reported) Dulaglutide (Trulicity) 1.5 Mg/0.5 Ml Inj, 1.5 MG SC 1XWK, (Reported) WED Glipizide (Glipizide ER) 10 Mg Tab.er.24, 10 MG PO DAILY, (Reported) Hydrochlorothiazide (Hydrochlorothiazide) 25 Mg Tablet, 25 MG PO DAILY, (Reported) Irbesartan (Irbesartan) 150 Mg Tab, 150 MG PO DAILY, (Reported) Isosorbide Mononitrate (Isosorbide Mononitrate ER) 120 Mg Tab, 60 MG PO QAM, (Reported) Latanoprost/Pf (Latanoprost 0.005% Eye Drop) 7.5 Ml Drops, 1 DROP OU QHS, (Reported) Metformin HCl (Metformin HCl) 500 Mg Tab, 1,000 MG PO BID, (Reported) Metoprolol Succinate (Metoprolol Succinate) 50 Mg Tab, 50 MG PO DAILY, (Reported) Olopatadine HCl (Patanol) 0.1 % Daisy, 1 DROP OU BID, (Reported) Pantoprazole Sodium (Pantoprazole Sodium) 40 Mg Tab, 40 MG PO DAILY, (Reported) Ranolazine (Ranexa) 1,000 Mg Tab, 1,000 MG PO DAILY, (Reported) Scheduled PRN Nitroglycerin (Nitroglycerin) 0.4 Mg Sub, 0.4 MG SL PRN PRN for CHEST PAIN, (Reported) Miscellaneous Medications [Comm] , (Reported) PT STATES THAT HE HASN'T TAKEN ANYTHING SINCE SUNDAY AT [facility]. CALLED [facility] TO CONFIRM MEDICATIONS Harish Forbes MD Feb 05, 2019 08:02
[2019-02-05] MEDS: COSOPT OCUMETER PLUS 10ML (DORZOLAMIDE/TIMOLOL) OU SCH ×2 (08:26→21:01)
[2019-02-05] MEDS: OLOPATADINE 0.1% OPHTH SOL 5ML(PATANOL) OU SCH ×2 (08:26→21:01)
[2019-02-05] MEDS: ISOSORBIDE MON. (IMDUR) 60 MG XR TAB PO SCH (09:00)
[2019-02-05] MEDS: glipiZIDE XL 5 MG TABCR PO SCH (09:00)
[2019-02-05] MEDS: ATORVASTATIN 20 MG TAB PO SCH (09:00)
[2019-02-05] MEDS: RANOLAZINE 500 MG ER TAB PO SCH (09:00)
[2019-02-05] MEDS: METOPROLOL SUCC (TopROL XL) 50MG **XL** TAB PO SCH (09:00)
[2019-02-05] MEDS: IRBESARTAN 150 MG TAB PO SCH (09:00)
[2019-02-05] MEDS: PANTOPRAZOLE 40MG TAB (PROTONIX) PO SCH (09:00)
--- NOTE | 2019-02-05 09:07 | IPNPDOC ---
Text Note Date of Service The patient was seen on 02/05/19. NOTE SUBJECTIVE: Mr. Bermeo is admitted with right-sided nephroureterolithiasis. He is having pain, but he states it is controlled with his morphine doses. OBJECTIVE: Please see vital signs below Physical exam: HENT: Neck is supple, oral mucosa is moist, prior scleral injection is resolved, trach site is intact with no drainage. Cardiovascular: Regular rate and rhythm with a normal S1 and S2 and grade 3/6 systolic murmur. Abdomen: Soft, distended, right-sided flank pain to palpation, notable central obesity Extremities: No peripheral edema, pedal pulses are palpable Neuro: No focal neuromotor or sensory deficit. Psych: Patient is calm, cooperative and oriented. ASSESSMENT/PLAN: 1. Nephroureterolithiasis. The patient is noted to have a obstructing 6 mm stone to the right ureter. There is mild hydroureter. There is also mild right hydronephrosis. Additional small nonobstructing stones are noted to both kidneys. There are no stones noted to the bladder. The patient will received initial intervention with analgesics, IV hydration and antiemetics. We will continue to monitor the patient's renal function. Mechanical intervention will be per urology service. I have held the patient's aspirin and Plavix for now pending procedures. 2. Coronary artery disease. Patient does have known coronary artery disease for which he's undergone intervention with stent placement in the past. Angiogram of February 02 at [facility] does not show any current disease. We will continue his usual medications for management of his coronary artery disease and essential hy pertension. 3. Mqo-qtcybzj-udglfvhil diabetes mellitus. The patient will be placed on sliding scale insulin for glycemic control. His metformin is held but will continue with his glipizide. 4. Obstructive sleep apnea. The patient had a tracheostomy placed a few years ago due to severe obstructive sleep apnea. He is currently stable; he does not utilize oxygen or any form of positive pressure ventilation. The patient is otherwise medically cleared for urologic procedures today. He does not have any acute coronary artery disease or any acute pulmonary disease. VS,Fishbone, I+O VS, Fishbone, I+O Laboratory Tests 02/04/19 15:00 02/05/19 06:24 Vital Signs Date Time Temp Pulse Resp B/P (MAP) Pulse Ox O2 Delivery O2 Flow Rate FiO2 02/05/19 05:52 97.4 60 18 160/75 (103) 98 02/04/19 15:48 Room Air I&O- Last 24 Hours up to 6 AM 02/05/19 06:00 Intake Total 600 ml Output Total 600 ml Balance 0 ml HANK VILLAFANA MD Feb 05, 2019 09:07
[2019-02-05] MEDS: NS 1,000 ML IV SCH (10:25)
[2019-02-05] MEDS: CIPROFLOXACIN 200 MG in IV 1 EA IV SCH (11:03)
[2019-02-05] MEDS ORDERED: CIPROFLOXACIN/D5W 400 MG/200 ML BAG (J0744) As Ordered ONE (11:44)
[2019-02-05] MEDS ORDERED: SUCCINYLCHOLINE 100 MG/5 ML SYRINGE (J0330) As Ordered ONE (12:52)
[2019-02-05] MEDS ORDERED: LIDOCAINE 2% INJ 100 MG/5 ML SDV (FOR ANES.) As Ordered ONE (12:52)
[2019-02-05] MEDS ORDERED: dexameTHASONE 4 MG/ML 1ML VIAL (J1100) As Ordered ONE (12:52)
[2019-02-05] MEDS ORDERED: ONDANSETRON 4MG/2ML VIAL (J2405) As Ordered ONE (12:52)
[2019-02-05] MEDS ORDERED: PROPOFOL 200 MG/20 ML VIAL As Ordered ONE (12:52)
[2019-02-05] MEDS ORDERED: fentaNYL 100 MCG/2 ML INJECTION (J3010) As Ordered ONE (12:53)
[2019-02-05] MEDS ORDERED: MIDAZOLAM INJ 2 MG/2 ML VIAL (J2250) As Ordered ONE (12:53)
[2019-02-05] MEDS: hydrALAZINE INJ 20 MG/ML VIAL IV SCH ×13 (13:37→15:00)
[2019-02-05] MEDS ORDERED: hydrALAZINE INJ 20 MG/ML VIAL As Ordered ONE (13:38)
[2019-02-05] MEDS ORDERED: ONDANSETRON 4MG/2ML VIAL (J2405) IV PRN (14:00)
[2019-02-05] MEDS ORDERED: METOCLOPRAMIDE INJ 10MG/2ML VIAL (J2765) IV PRN (14:00)
[2019-02-05] MEDS ORDERED: fentaNYL 100 MCG/2 ML INJECTION (J3010) IV PRN (14:00)
[2019-02-05] MEDS ORDERED: LR 1,000 ML IV SCH (14:00)
--- NOTE | 2019-02-05 14:37 | REP ---
Retrograde pyelogram: Two views. History: Right laser stent, cystoscopy. 20 seconds of fluoroscopy time is reported. Findings: A sequence of two last image hold fluoroscopically obtained spot radiographs of the right abdomen document double pigtailed right ureteral stent placement. Electronically Signed by Glen Jamison MD 02/05/2019 05:44 P
[2019-02-05] MEDS: LATANOPROST 0.005% OPHTH SOLN 2.5 ML OU SCH (21:01)
[2019-02-06 02:15] VITALS: BP 138/65
[2019-02-06] MEDS: HEPARIN SOD (PORCINE) 5000 UNITS/ML VIAL SQ SCH (05:33)
[2019-02-06] MEDS: NS 1,000 ML IV SCH ×2 (05:33→08:15)
[2019-02-06 06:24] VITALS: BP 154/76
[2019-02-06] MEDS ORDERED: OXYC1TAB23 PO (07:13)
[2019-02-06] MEDS: HumaLOG INSULIN (NovoLOG) PER UNIT SC SCH (08:11)
[2019-02-06] MEDS: IRBESARTAN 150 MG TAB PO SCH (08:12)
[2019-02-06] MEDS: ATORVASTATIN 20 MG TAB PO SCH (08:12)
[2019-02-06] MEDS: RANOLAZINE 500 MG ER TAB PO SCH (08:12)
[2019-02-06] MEDS: METOPROLOL SUCC (TopROL XL) 50MG **XL** TAB PO SCH (08:12)
[2019-02-06] MEDS: glipiZIDE XL 5 MG TABCR PO SCH (08:12)
[2019-02-06 08:13] VITALS: BP 154/76
[2019-02-06] MEDS: PANTOPRAZOLE 40MG TAB (PROTONIX) PO SCH (08:13)
[2019-02-06] MEDS: COSOPT OCUMETER PLUS 10ML (DORZOLAMIDE/TIMOLOL) OU SCH (08:13)
[2019-02-06] MEDS: ISOSORBIDE MON. (IMDUR) 60 MG XR TAB PO SCH (08:13)
[2019-02-06] MEDS: OLOPATADINE 0.1% OPHTH SOL 5ML(PATANOL) OU SCH (08:14)
--- NOTE | 2019-02-06 09:47 | RO ---
DATE OF PROCEDURE: 02/05/2019 PREPROCEDURE DIAGNOSIS: Right ureteral stone. POSTPROCEDURE DIAGNOSIS: Right ureteral stone. PROCEDURE: Cystoscopy, right ureteroscopy with basket extraction of stone, right ureteral stent placement. SURGEON: Dr. Bienvenido Sen CHIEF LIBRARIAN CIRCULATION DEPARTMENT: None. ANESTHESIA: General. OPERATIVE INDICATIONS: This is a 68-year-old male who was admitted to the hospital for intractable right flank pain due to obstructing 6 to 7 mm mid right ureteral stone. He was brought to the operating room today for treatment. DESCRIPTION OF PROCEDURE: The patient was brought to the operating room, where general anesthesia was induced. Prophylactic antibiotics were infused. He was then placed in the dorsal lithotomy position and prepped and draped in the usual sterile fashion. A rigid cystoscope was then inserted into the urethral meatus and advanced into the bladder. Once inside the bladder, a guidewire was advanced up the right collecting system. I then advanced the ureteral access sheath over the wire up to the right collecting system. I went in the access sheath with a flexible ureteroscope and examined the mid proximal ureter, as well as the kidney and no stones were seen. The kidney did appear to be hydronephrotic and there was a moderate amount of debris, which likely was an old blood clot inside the kidney. No stones were seen inside the kidney. I then withdrew ureteroscope along with access sheath and then while I was withdrawing the access sheath within the distal ureter, the stone was seen. The stone was grasped with the basket and withdrawn to be sent for analysis. Once the stone was removed, the previously placed wire was utilized to advance a #7-Rwandan x 22-32 cm JJ ureteral stent up the right collecting system. The wire was then removed, and there were adequate curls of the stent in the right renal pelvis and in the bladder. The bladder was then emptied of all fluid, and this marked the conclusion of the procedure. The patient was then taken out of the dorsal lithotomy position, awakened from anesthesia, and transported to the recovery room in stable condition. ESTIMATED BLOOD LOSS: 5 mL. COMPLICATIONS: None. SPECIMENS: Ureteral stone. PLAN: The patient will go back to the regular nursing floor postoperatively. Once pain is better controlled, he can be discharged home with the plan for him to followup in the clinic in a week or two for stent removal. TIFFANY
== END 2019-02-06 09:55 | disposition home or self-care (01) | DRG 660 ==
LOC: M ED 12:03 → M ED INP 18:10 → M MS5PR 21:15 → M ED INP 02-06 08:36 → M MS5PR 02-06 08:40
PROVIDERS: ADMIT Internal Medicine; ATTEND Internal Medicine
PROC: 0TC68ZZ Extirpation of Matter from Right Ureter, Via Natural or Artificial Opening Endoscopic (ICD-10-PCS; 2019-02-05)
PROC: 0T738DZ Dilation of Right Kidney Pelvis with Intraluminal Device, Via Natural or Artificial Opening Endoscopic (ICD-10-PCS; principal; 2019-02-05 12:30)
DX: N13.2 Hydronephrosis with renal and ureteral calculous obstruction (principal); I50.32 Chronic diastolic (congestive) heart failure; Z79.82 Long term (current) use of aspirin; Z79.899 Other long term (current) drug therapy; Z91.040 Latex allergy status; Z91.041 Radiographic dye allergy status; G47.33 Obstructive sleep apnea (adult) (pediatric); I25.10 Atherosclerotic heart disease of native coronary artery without angina pectoris; E11.9 Type 2 diabetes mellitus without complications; M10.9 Gout, unspecified; I11.0 Hypertensive heart disease with heart failure; Z95.2 Presence of prosthetic heart valve

== ENCOUNTER → 2019-03-11 | Outpatient (CLI) | payer MEDICARE ==
[~2019-03-11] MED LIST changes: +HYDR25TAB PO; +OXYC1TAB23 PO; +[UNRECOGNIZED DRUG - OTHER]
--- NOTE | 2019-03-11 20:07 | REP ---
RENAL ULTRASOUND: Real-time sonographic evaluation of the kidneys are performed. The kidneys are normal in size and echotexture, right kidney measuring 12.4 x 6.4 x 6.1 cm and left kidney 12.7 x 5.8 x 6.2 cm. There is no hydronephrosis bilaterally. Cyst in the mid left kidney measures 1 cm in diameter. There are bilateral ureteral jets and the urinary bladder with Doppler color evaluation. IMPRESSION: No hydronephrosis. Electronically Signed by Khalif Agee MD 03/12/2019 03:38 P
== END ==
LOC: M RAD 14:47
PROVIDERS: ATTEND Urology
DX: N20.1 Calculus of ureter (principal)

== ENCOUNTER 2019-03-15 21:30 | Emergency (ER) | payer MEDICARE ==
[~2019-03-15] VITALS: Ht 172.7 cm; Wt 98.6 kg
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
[2019-03-15] MEDS ORDERED: ACETAMINOPHEN 500 MG TAB PO ONE (23:00)
[2019-03-15 23:12] VITALS: BP 189/79
== END 2019-03-15 23:51 | disposition home or self-care (01) ==
LOC: M ED 21:30
DX: S00.83XA Contusion of other part of head, initial encounter (principal); Y04.8XXA Assault by other bodily force, initial encounter; Y92.330 Ice skating rink (indoor) (outdoor) as the place of occurrence of the external cause; Y93.9 Activity, unspecified; Y99.0 Civilian activity done for income or pay; I25.10 Atherosclerotic heart disease of native coronary artery without angina pectoris; I10 Essential (primary) hypertension; E11.9 Type 2 diabetes mellitus without complications; G47.30 Sleep apnea, unspecified; K21.9 Gastro-esophageal reflux disease without esophagitis; Z87.442 Personal history of urinary calculi; Z79.82 Long term (current) use of aspirin; Z79.84 Long term (current) use of oral hypoglycemic drugs; Z79.899 Other long term (current) drug therapy; Z91.041 Radiographic dye allergy status; Z91.040 Latex allergy status

== ENCOUNTER → 2019-11-24 | Outpatient (REF) | payer MEDICARE ==
[~2019-11-24] MED LIST changes: -IRBE150T12 PO; +IRBE150T7 PO; +PANT40TA29 PO; -PANT40TA3 PO
== END ==
LOC: M LAB REF 08:23
PROVIDERS: ATTEND Physician Assistant Medical
DX: L92.9 Granulomatous disorder of the skin and subcutaneous tissue, unspecified (principal)

== ENCOUNTER → 2020-01-06 | Outpatient (REF) | payer MEDICARE | LOC: M LAB REF 14:57 | PROVIDERS: ATTEND Physician Assistant Medical | DX: J95.09 Other tracheostomy complication (principal) ==

== ENCOUNTER → 2020-03-15 | Outpatient (CLI) | payer MEDICARE ==
[2020-03-15 11:02] LABS: HEMATOCRIT 43.7 % (42.0-52.0); HEMOGLOBIN 14.1 g/dl (13.5-17.5); MEAN CORPUSCULAR HEMOGLOBIN 27.4 pg (27.0-33.0); MEAN CORPUSCULAR HGB CONC 32.3 g/dl (32.0-36.5); PLATELET COUNT, AUTOMATED 243 10^3/uL (150-450); RED BLOOD COUNT 5.14 10^6/uL (4.30-6.10); WHITE BLOOD COUNT 7.3 10^3/uL (4.0-10.0)
[2020-03-15 11:57] LABS: BLOOD UREA NITROGEN 20 MG/DL (7-18); CREATININE FOR GFR 0.94 MG/DL (0.70-1.30); GLOMERULAR FILTRATION RATE > 60.0 (>42)
== END ==
LOC: M LAB 10:07
PROVIDERS: ATTEND Nurse Practitioner
DX: R10.32 Left lower quadrant pain (principal); R19.7 Diarrhea, unspecified; K57.92 Diverticulitis of intestine, part unspecified, without perforation or abscess without bleeding

== ENCOUNTER 2020-03-19 12:31 | Emergency (ER) | payer MEDICARE ==
[~2020-03-19] VITALS: Ht 172.7 cm; Wt 96.9 kg
[2020-03-19] MEDS ORDERED: MORPHINE 4 MG/ML 1ML VIAL/SYRINGE (J2270) IV ONE ×2 (14:30→16:30)
[2020-03-19] MEDS ORDERED: ONDANSETRON 4MG/2ML VIAL IV ONE (14:30)
[2020-03-19 14:51] LABS: BASO % 0.6 % (0.0-1.0); EOS # 0.2 10^3/uL (0.0-0.5); EOS % 2.4 % (0.0-3.0); HEMATOCRIT 39.9 % (42.0-52.0); HEMOGLOBIN 12.9 g/dl (13.5-17.5); LYMPH # 1.8 10^3/uL (1.5-5.0); LYMPH % 27.3 % (24.0-44.0); MEAN CORPUSCULAR HEMOGLOBIN 26.9 pg (27.0-33.0); MEAN CORPUSCULAR HGB CONC 32.3 g/dl (32.0-36.5); MEAN CORPUSCULAR VOLUME 83.1 fl (80.0-96.0); MONO # 0.7 10^3/uL (0.0-0.8); MONO % 10.1 % (0.0-5.0); NEUTROPHILS # 3.9 10^3/uL (1.5-8.5); NEUTROPHILS % 59.3 % (36.0-66.0); PLATELET COUNT, AUTOMATED 222 10^3/uL (150-450); WHITE BLOOD COUNT 6.6 10^3/uL (4.0-10.0)
[2020-03-19 15:14] LABS: ALBUMIN 3.7 GM/DL (3.2-5.2); ALT/SGPT 52 U/L (12-78); BILIRUBIN,DIRECT 0.1 MG/DL (0.0-0.2); BILIRUBIN,TOTAL 0.5 MG/DL (0.2-1.0); BLOOD UREA NITROGEN 25 MG/DL (7-18); CALCIUM LEVEL 9.1 MG/DL (8.8-10.2); CARBON DIOXIDE LEVEL 26 MEQ/L (21-32); CHLORIDE LEVEL 110 MEQ/L (98-107); CREATININE FOR GFR 1.04 MG/DL (0.70-1.30); GLOMERULAR FILTRATION RATE > 60.0 (>42); GLUCOSE, FASTING 80 MG/DL (70-100); LIPASE 190 U/L (73-393); POTASSIUM SERUM 3.9 MEQ/L (3.5-5.1); SODIUM LEVEL 141 MEQ/L (136-145); TOTAL PROTEIN 7.2 GM/DL (6.4-8.2)
[2020-03-19 15:15] LABS: CK-MB VALUE MASS < 1.0 NG/ML (<3.6); CPK CREATINE PHOSPHOKINASE 52 U/L (39-308); MB/CK RELATIVE INDEX 1.92 (< OR =4); TROPONIN I < 0.02 NG/ML (< 0.10)
[2020-03-19] MEDS ORDERED: diphenhydrAMINE 50MG/ML VIAL (J1200) IV STA (15:24)
[2020-03-19] MEDS ORDERED: methylPREDNISolone 125MG 2ML VIAL IV ONE (15:30)
[2020-03-19] MEDS: READI-CAT 2 PO SCH ×2 (16:53→17:47)
[2020-03-19] MEDS ORDERED: ISOVUE-370 76% 100ML VIAL As Ordered ONE (18:44)
--- NOTE | 2020-03-19 19:13 | REPVR ---
PROCEDURE INFORMATION: Exam: CT Abdomen And Pelvis With Contrast Exam date and time: 03/19/2020 6:53 PM Age: 69 years old Clinical indication: Abdominal pain; Localized; Upper; Additional info: Upper abdominal pain, v, d x 7 weeks TECHNIQUE: Imaging protocol: Computed tomography of the abdomen and pelvis with intravenous contrast. Radiation optimization: All CT scans at this facility use at least one of these dose optimization techniques: automated exposure control; mA and/or kV adjustment per patient size (includes targeted exams where dose is matched to clinical indication); or iterative reconstruction. Contrast material: ISOVUE 370; Contrast volume: 100 ml; Contrast route: INTRAVENOUS (IV); COMPARISON: CT ABD/PEL W/IV CONTRAST ONLY 02/04/2019 4:19 PM FINDINGS: Liver: Normal. No mass. Gallbladder and bile ducts: There is a small present. No evidence of cholecystitis demonstrated. Pancreas: Normal. No ductal dilation. Spleen: Normal. No splenomegaly. Adrenal glands: Normal. No mass. Kidneys and ureters: Bilateral nonobstructive renal calculi. 1.3 cm lower pole simple cyst left kidney. No follow-up suggested. Stomach and bowel: Mild colonic diverticulosis without diverticulitis. Appendix: No evidence of appendicitis. Intraperitoneal space: Unremarkable. No free air. No significant fluid collection. Vasculature: The aortoiliac vessels demonstrate mild atherosclerotic calcification. Lymph nodes: There is hazy increased density in the central mesentery associated with small mesenteric lymph nodes, a finding which can be associated with mesenteric panniculitis in the appropriate clinical setting. Clinical correlation suggested. Urinary bladder: Unremarkable as visualized. Reproductive: The prostate gland demonstrates mild hyperplasia. Bones/joints: Moderate to severe central spinal stenosis at L2-L3, severe central spinal stenosis L3-L4 and L4-L5. Pseudoarticulation of the transverse process of L5 on S1 on the left. Soft tissues: Right inguinal hernia without incarceration. IMPRESSION: 1. There is a small present. No evidence of cholecystitis demonstrated. 2. Bilateral nonobstructive renal calculi. 3. 1.3 cm lower pole simple cyst left kidney. No follow-up suggested. 4. Mild prostatic hyperplasia. 5. Right inguinal hernia without incarceration. 6. Mild colonic diverticulosis without diverticulitis. 7. There is hazy increased density in the central mesentery associated with small mesenteric lymph nodes, a finding which can be associated with mesenteric panniculitis in the appropriate clinical setting. Clinical correlation suggested. COMMENTS: Consistent with the [employer]'s Incidental Findings Committee white paper (J Am Adriano Radiol 2018): Any incidental renal lesion less than 1 cm or classified as too small to characterize, or any incidental cystic renal lesion characterized as simple-appearing, is likely benign. No follow-up imaging is recommended for these lesions per consensus recommendations based on imaging criteria. Electronically signed by: Eliecer Fierro On 03/19/2020 19:13:43 PM
[2020-03-19] MEDS ORDERED: PRED20TA PO (19:52)
[2020-03-19] MEDS ORDERED: predniSONE 20 MG TAB PO ONE (20:00)
[2020-03-19 20:04] VITALS: BP 148/88
[2020-03-19 20:06] LABS: C REACTIVE PROTEIN QUANTITATIV < 0.30 MG/DL (0.00-0.30)
--- NOTE | 2020-03-22 11:25 | ED PDOC ---
Post-Departure Follow-Up ct abd/p faxed to dr sweeney for fu Hugh Mar MD Mar 22, 2020 11:25
== END 2020-03-19 20:23 | disposition home or self-care (01) ==
LOC: M ED 12:31
DX: R10.13 Epigastric pain (principal); R11.2 Nausea with vomiting, unspecified; R19.7 Diarrhea, unspecified; N20.0 Calculus of kidney; N28.1 Cyst of kidney, acquired; K40.90 Unilateral inguinal hernia, without obstruction or gangrene, not specified as recurrent; I25.10 Atherosclerotic heart disease of native coronary artery without angina pectoris; E11.9 Type 2 diabetes mellitus without complications; I10 Essential (primary) hypertension; E78.5 Hyperlipidemia, unspecified; Z87.442 Personal history of urinary calculi; F41.9 Anxiety disorder, unspecified; F32.9 Major depressive disorder, single episode, unspecified; K21.9 Gastro-esophageal reflux disease without esophagitis; K57.92 Diverticulitis of intestine, part unspecified, without perforation or abscess without bleeding; Z98.61 Coronary angioplasty status; Z95.5 Presence of coronary angioplasty implant and graft; Z79.82 Long term (current) use of aspirin; Z79.84 Long term (current) use of oral hypoglycemic drugs; Z79.899 Other long term (current) drug therapy; Z91.040 Latex allergy status; Z91.041 Radiographic dye allergy status
CPT/HCPCS: 74177; 80048; 80076; 81001; 82550; 82553; 83605; 83690; 84484; 85025; 86140; 96374; 96375; 96376; 99284; J1200; J2270; J2930; Q9967

== ENCOUNTER → 2020-03-26 | Outpatient (CLI) | payer MEDICARE ==
[~2020-03-26] MED LIST changes: +PRED20TA PO
== END ==
LOC: M LABSMTC 11:58
PROVIDERS: ATTEND Anesthesiology
DX: Z01.812 Encounter for preprocedural laboratory examination (principal); Z20.828 Contact with and (suspected) exposure to other viral communicable diseases

== ENCOUNTER 2020-03-31 06:43 | Day surgery (SDC) | payer MEDICARE ==
[~2020-03-31] VITALS: Ht 172.7 cm; Wt 91.2 kg
[2020-03-31] MEDS ORDERED: propofoL 500 MG/50 ML VIAL As Ordered ONE (07:15)
[2020-03-31] MEDS ORDERED: LIDOCAINE 2% 100MG/5ML SDV (FOR ANES.) As Ordered ONE (07:52)
[2020-03-31] MEDS ORDERED: fentaNYL 100 MCG/2 ML INJECTION (J3010) As Ordered ONE (07:52)
--- NOTE | 2020-03-31 08:09 | ROOR ---
Patient Name: Maurizio Bermeo Procedure Date: 03/31/2020 7:32 AM Date of : 1950 Age: 69 Room: [facility] Gender: Male Note Status: Finalized Procedure: Upper GI endoscopy Indications: Nausea with vomiting Providers: DO Norbert Wolf MD: Katie Holley NP Requesting Provider: Medicines: Propofol per Anesthesia Complications: No immediate complications. Procedure: Pre-Anesthesia Assessment: - Prior to the procedure, a History and Physical was performed, and patient medications and allergies were reviewed. The patient is competent. The risks and benefits of the procedure and the sedation options and risks were discussed with the patient. All questions were answered and informed consent was obtained. Patient identification and proposed procedure were verified by the physician, the nurse, the contact lens polisher and the criminal records technician in the endoscopy suite. Mental Status Examination: alert and oriented. Airway Examination: normal oropharyngeal airway and neck mobility. Respiratory Examination: clear to auscultation. CV Examination: normal. Prophylactic Antibiotics: The patient does not require prophylactic antibiotics. Prior Anticoagulants: The patient has taken no previous anticoagulant or antiplatelet agents. ASA Grade Assessment: III - A patient with severe systemic disease. After reviewing the risks and benefits, the patient was deemed in satisfactory condition to undergo the procedure. The anesthesia plan was to use monitored anesthesia care (MAC). Immediately prior to administration of medications, the patient was re-assessed for adequacy to receive sedatives. The heart rate, respiratory rate, oxygen saturations, blood pressure, adequacy of pulmonary ventilation, and response to care were monitored throughout the procedure. The physical status of the patient was re-assessed after the procedure. The Endoscope was introduced through the mouth, and advanced to the second part of duodenum. The upper GI endoscopy was accomplished without difficulty. The patient tolerated the procedure well. Findings: The Z-line was irregular. Biopsies were taken with a cold forceps for histology. Estimated blood loss was minimal. The exam was otherwise without abnormality. Impression: - Z-line irregular. Biopsied. - The examination was otherwise normal. Recommendation: - Patient has a contact number available for emergencies. The signs and symptoms of potential delayed complications were discussed with the patient. Return to normal activities tomorrow. Written discharge instructions were provided to the patient. - Telephone my office for pathology results in 1 week. Procedure Code(s): --- Professional --- 75013, Esophagogastroduodenoscopy, flexible, transoral; with biopsy, single or multiple Diagnosis Code(s): --- Professional --- K22.8, Other specified diseases of esophagus R11.2, Nausea with vomiting, unspecified CPT copyright 2019 [employer]. All rights reserved. The codes documented in this report are preliminary and upon label tacker review may be revised to meet current compliance requirements. Khalif Saldaña DO 03/31/2020 8:08:46 AM Electronically signed by Khalif Saldaña DO Number of Addenda: 0 Note Initiated On: 03/31/2020 7:32 AM Estimated Blood Loss: Estimated blood loss was minimal.
--- NOTE | 2020-03-31 08:13 | ROOR ---
Patient Name: Maurizio Bermeo Procedure Date: 03/31/2020 7:33 AM Date of : 1950 Age: 69 Room: [facility] Gender: Male Note Status: Finalized Procedure: Colonoscopy Indications: Abdominal pain in the left lower quadrant, Clinically significant diarrhea of unexplained origin Providers: DO Norbert Wolf MD: Katie Holley NP Requesting Provider: Medicines: Propofol per Anesthesia Complications: No immediate complications. Procedure: Pre-Anesthesia Assessment: - Prior to the procedure, a History and Physical was performed, and patient medications and allergies were reviewed. The patient is competent. The risks and benefits of the procedure and the sedation options and risks were discussed with the patient. All questions were answered and informed consent was obtained. Patient identification and proposed procedure were verified by the physician, the nurse, the bowling alley floors installer and the insulator technician in the endoscopy suite. Mental Status Examination: alert and oriented. Airway Examination: normal oropharyngeal airway and neck mobility. Respiratory Examination: clear to auscultation. CV Examination: normal. Prophylactic Antibiotics: The patient does not require prophylactic antibiotics. Prior Anticoagulants: The patient has taken no previous anticoagulant or antiplatelet agents except for aspirin. ASA Grade Assessment: III - A patient with severe systemic disease. After reviewing the risks and benefits, the patient was deemed in satisfactory condition to undergo the procedure. The anesthesia plan was to use monitored anesthesia care (MAC). Immediately prior to administration of medications, the patient was re-assessed for adequacy to receive sedatives. The heart rate, respiratory rate, oxygen saturations, blood pressure, adequacy of pulmonary ventilation, and response to care were monitored throughout the procedure. The physical status of the patient was re-assessed after the procedure. The Colonoscope was introduced through the anus and advanced to the cecum, identified by appendiceal orifice and ileocecal valve. The colonoscopy was performed without difficulty. The patient tolerated the procedure well. Findings: Non-bleeding internal hemorrhoids were found during retroflexion. The hemorrhoids were mild and Grade I (internal hemorrhoids that do not prolapse). Many small-mouthed diverticula were found in the sigmoid colon. The exam was otherwise without abnormality on direct and retroflexion views. Impression: - Non-bleeding internal hemorrhoids. - Diverticulosis in the sigmoid colon. - The examination was otherwise normal on direct and retroflexion views. - No specimens collected. Recommendation: - Patient has a contact number available for emergencies. The signs and symptoms of potential delayed complications were discussed with the patient. Return to normal activities tomorrow. Written discharge instructions were provided to the patient. - Repeat colonoscopy in 5-10 years for screening purposes. - Return to my office PRN. Procedure Code(s): --- Professional --- 38909, Colonoscopy, flexible; diagnostic, including collection of specimen(s) by brushing or washing, when performed (separate procedure) Diagnosis Code(s): --- Professional --- K64.0, First degree hemorrhoids R10.32, Left lower quadrant pain R19.7, Diarrhea, unspecified K57.30, Diverticulosis of large intestine without perforation or abscess without bleeding CPT copyright 2019 [employer]. All rights reserved. The codes documented in this report are preliminary and upon mechanical product engineer review may be revised to meet current compliance requirements. Khalif Saldaña DO 03/31/2020 8:12:38 AM Electronically signed by Khalif Saldaña DO Number of Addenda: 0 Note Initiated On: 03/31/2020 7:33 AM Estimated Blood Loss: Estimated blood loss: none.
[2020-03-31 09:20] VITALS: BP 185/86
== END 2020-03-31 09:45 | disposition home or self-care (01) ==
LOC: M OPP 06:43
PROVIDERS: ATTEND Surgery
DX: K64.0 First degree hemorrhoids (principal); K57.30 Diverticulosis of large intestine without perforation or abscess without bleeding; R10.32 Left lower quadrant pain; R19.7 Diarrhea, unspecified; K22.8 Other specified diseases of esophagus; R11.2 Nausea with vomiting, unspecified; E11.9 Type 2 diabetes mellitus without complications; Z79.82 Long term (current) use of aspirin; Z79.84 Long term (current) use of oral hypoglycemic drugs; Z79.891 Long term (current) use of opiate analgesic; Z79.899 Other long term (current) drug therapy; Z91.040 Latex allergy status; Z91.041 Radiographic dye allergy status; Z95.5 Presence of coronary angioplasty implant and graft
CPT/HCPCS: 43239; 45378; 88305; J3010

== ENCOUNTER → 2020-04-29 | Outpatient (REF) | payer MEDICARE | LOC: M LAB REF 16:06 | PROVIDERS: ATTEND Surgery | DX: D48.5 Neoplasm of uncertain behavior of skin (principal); L57.0 Actinic keratosis ==

== ENCOUNTER → 2020-08-17 | Outpatient (CLI) | payer MEDICARE ==
[~2020-08-17] MED LIST changes: +HYDR-3490 PO; -HYDR25TAB PO
--- NOTE | 2020-08-17 10:58 | REP ---
INDICATION: EARLY SATIETY. COMPARISON: None. TECHNIQUE/RADIOTRACER AND DOSE: Following the intravenous administration of 1.06 mCi technetium 99 M sulfur colloid in 2 scrambled eggs and 6 oz of water, multiple images of the upper abdomen are performed in the anterior and posterior projections for 90 minutes. FINDINGS: The gastric activity is measured. At the end of 90 minutes 17% of the ingested activity has emptied from the stomach. The T1/2 is 275 minutes which is above the normal value of 90 minutes. IMPRESSION: Delayed gastric emptying. <Electronically signed by Khalif Agee > 08/17/20 [id number]
== END ==
LOC: M RAD 08:53
PROVIDERS: ATTEND Internal Medicine Gastroenterology
DX: R13.10 Dysphagia, unspecified (principal); R68.81 Early satiety; R63.4 Abnormal weight loss; K30 Functional dyspepsia
CPT/HCPCS: 78264; A9541

== ENCOUNTER 2020-11-13 16:55 | Emergency (ER) | payer MEDICARE ==
[~2020-11-13] VITALS: Ht 175.3 cm; Wt 91.4 kg
[2020-11-13] MEDS: MORPHINE 2 MG/ML 1ML VIAL (J2270) IV PRN ×2 (17:28→17:57)
[2020-11-13 17:32] LABS: BASO # 0.1 10^3/uL (0.0-0.2); BASO % 0.8 % (0.0-1.0); EOS # 0.1 10^3/uL (0.0-0.5); HEMATOCRIT 37.7 % (42.0-52.0); LYMPH # 1.7 10^3/uL (1.5-5.0); LYMPH % 25.7 % (24.0-44.0); MEAN CORPUSCULAR HEMOGLOBIN 28.1 pg (27.0-33.0); MEAN CORPUSCULAR HGB CONC 34.5 g/dl (32.0-36.5); MEAN CORPUSCULAR VOLUME 81.4 fl (80.0-96.0); MONO # 0.7 10^3/uL (0.0-0.8); MONO % 10.5 % (2.0-8.0); NEUTROPHILS % 60.8 % (36.0-66.0); PLATELET COUNT, AUTOMATED 238 10^3/uL (150-450); RED BLOOD COUNT 4.63 10^6/uL (4.30-6.10); WHITE BLOOD COUNT 6.6 10^3/uL (4.0-10.0)
[2020-11-13] MEDS ORDERED: diphenhydrAMINE 50MG/ML VIAL (J1200) IV STA (17:41)
[2020-11-13 17:44] LABS: PROTHROMBIN TIME 13.4 SECONDS (12.5-14.3)
[2020-11-13] MEDS ORDERED: FAMOTIDINE INJ 20MG/2ML VIAL (S0028 PER 1) IVP ONE (17:45)
[2020-11-13] MEDS ORDERED: GI COCKTAIL 50ML BTL(HYOSCYAMINE/MAALOX/LIDOCAINE VISCOUS)(1:3:1) PO ONE (17:45)
[2020-11-13] MEDS ORDERED: methylPREDNISolone 125MG 2ML VIAL IV ONE (17:45)
[2020-11-13 17:47] LABS: ALBUMIN 3.6 GM/DL (3.2-5.2); BILIRUBIN,DIRECT 0.2 MG/DL (0.0-0.2); BILIRUBIN,TOTAL 0.8 MG/DL (0.2-1.0)
--- NOTE | 2020-11-13 17:52 | REPVR ---
PROCEDURE INFORMATION: Exam: XR Chest Exam date and time: 11/13/2020 5:16 PM Age: 70 years old Clinical indication: Other: Chest pain TECHNIQUE: Imaging protocol: XR of the chest. Views: 1 view. COMPARISON: CR PORTABLE CHEST X-RAY 02/01/2019 12:20 PM FINDINGS: Tubes, catheters and devices: Tracheostomy catheter is appropriately positioned Lungs: Degree of lung inflation is normal. No evidence of pulmonary edema. No focal consolidation or parenchymal lung mass. Pleural spaces: No pleural effusion or pneumothorax. Heart/Mediastinum: Cardiac silhouette appears normal. No adenopathy or hilar mass. Bones/joints: Osseous structures show no concerning abnormality. IMPRESSION: No acute or focal cardiopulmonary process. Electronically signed by: Sherwin Shay On 11/13/2020 17:52:26 PM
[2020-11-13 18:26] LABS: RSV AMPLIFICATION NEGATIVE (NEGATIVE)
[2020-11-13] MEDS ORDERED: TIMO0.5S29 (18:35)
[2020-11-13] MEDS ORDERED: ISOVUE-370 76% 100ML VIAL As Ordered ONE (19:19)
[2020-11-13] MEDS ORDERED: MORPHINE 2 MG/ML 1ML VIAL (J2270) IV ONE (19:30)
[2020-11-13] MEDS ORDERED: POTASSIUM CHLORIDE 10 MEQ SR TABLET PO ONE (20:00)
--- NOTE | 2020-11-13 20:10 | REPVR ---
PROCEDURE INFORMATION: Exam: CTA Chest With Contrast Exam date and time: 11/13/2020 7:46 PM Age: 70 years old Clinical indication: Other: Chest pain TECHNIQUE: Imaging protocol: Computed tomographic angiography of the chest with contrast. 3D rendering (Not supervised by radiologist): MIP and/or 3D reconstructed images were created by the technologist. Radiation optimization: All CT scans at this facility use at least one of these dose optimization techniques: automated exposure control; mA and/or kV adjustment per patient size (includes targeted exams where dose is matched to clinical indication); or iterative reconstruction. Contrast material: ISOVUE 370; Contrast volume: 75 ml; Contrast route: INTRAVENOUS (IV); COMPARISON: CR PORTABLE CHEST X-RAY 11/13/2020 5:06 PM FINDINGS: Pulmonary arteries: No focal pulmonary artery filling defect to suggest acute pulmonary embolus. Aorta: Thoracic aorta is ectatic and atherosclerotic. No focal aneurysm or dissection. Lungs: Pulmonary vascular/interstitial pattern does not suggest active pulmonary edema. No suspicious lung mass or air space process. No central endobronchial lesion. Pleural spaces: No pleural effusion or pneumothorax. Heart: No overt cardiac enlargement or abnormal volume of pericardial fluid. Mediastinal space: Tracheostomy is present within the trachea. Lymph nodes: Small, nonspecific mediastinal nodes are present. Gallbladder and bile ducts: Gallstones are present in the gallbladder lumen. No adjacent fluid or duct dilatation. Bones/joints: Multi-level, age-related thoracic degenerative disc disease is present. Soft tissues: No asymmetric abnormality of the extrathoracic soft tissues. IMPRESSION: 1. No evidence of acute pulmonary embolus. 2. No other acute or concerning focal intrathoracic abnormality. 3. Cholelithiasis. No obvious active inflammatory change Electronically signed by: Sherwin Shay On 11/13/2020 20:09:27 PM
[2020-11-13 21:01] VITALS: BP 167/69
--- NOTE | 2020-11-13 21:36 | ECGEPIP ---
[facility] - ED Test Date: 2020-11-13 Pat Name: TARSHA GARRISON Department: Room: - Gender: Male Compressor House Operator: PREETHI : 1950 Requested By: Hugh Milan Order Number: [id number] Reading MD: Myra Blake Measurements Intervals [place] Rate: 64 P: 40 AL: 202 QRS: -46 QRSD: 96 T: 30 QT: 436 QTc: 449 Interpretive Statements Normal sinus rhythm Left axis deviation lafb increased rate 02/01/19 Electronically Signed on 11-13-2020 21:35:42 EDT by Myra Blake
--- NOTE | 2020-11-13 21:38 | ECGEPIP ---
[facility] - ED Test Date: 2020-11-13 Pat Name: TARSHA GARRISON Department: Room: - Gender: Male Refrigeration Brazer/Solderer: liliane : 1950 Requested By: Hugh Milan Order Number: [id number] Reading MD: Myra Blake Measurements Intervals [place] Rate: 63 P: 21 IL: 224 QRS: -46 QRSD: 102 T: 15 QT: 434 QTc: 444 Interpretive Statements Sinus rhythm with 1st degree AV block with premature atrial complexes Left axis deviation lafb similar 11/13/20 Electronically Signed on 11-13-2020 21:38:19 EDT by Myra Blake
== END 2020-11-13 21:52 | disposition short-term general hospital (02) ==
LOC: M ED 16:55 → EDBD 16:55 → M ED 21:52
DX: R07.9 Chest pain, unspecified (principal); I44.0 Atrioventricular block, first degree; I44.4 Left anterior fascicular block; I25.10 Atherosclerotic heart disease of native coronary artery without angina pectoris; E11.9 Type 2 diabetes mellitus without complications; I10 Essential (primary) hypertension; E78.5 Hyperlipidemia, unspecified; Z95.5 Presence of coronary angioplasty implant and graft; G47.30 Sleep apnea, unspecified; K80.20 Calculus of gallbladder without cholecystitis without obstruction; Z79.82 Long term (current) use of aspirin; Z79.84 Long term (current) use of oral hypoglycemic drugs; Z79.899 Other long term (current) drug therapy; Z91.040 Latex allergy status; Z91.041 Radiographic dye allergy status
CPT/HCPCS: 71045; 71275; 80047; 80076; 83690; 84484; 85025; 85610; 85730; 87631; 93005; 93041; 94760; 96374; 96375; 96376; 99285; J1200; J2270; J2930; Q9967

== ENCOUNTER 2020-11-18 10:49 | Emergency (ER) | payer MEDICARE ==
[~2020-11-18 10:49] MED LIST changes: -CLOP75TA2; -IRBE75TA4; -METO1TAB32
[2020-11-18] MEDS ORDERED: IRBE75TA4 (11:04)
[2020-11-18] MEDS ORDERED: CLOP75TA2 (11:04)
[2020-11-18] MEDS ORDERED: METO1TAB32 (11:04)
[2020-11-18] MEDS ORDERED: NS 1,000 ML IV ONE (11:45)
[2020-11-18] MEDS ORDERED: diphenhydrAMINE 50MG/ML VIAL (J1200) IV ONE (11:45)
[2020-11-18] MEDS ORDERED: methylPREDNISolone 125MG 2ML VIAL IV ONE (11:45)
[2020-11-18] MEDS ORDERED: MORPHINE 4 MG/ML 1ML VIAL/SYRINGE (J2270) IV ONE ×2 (11:45→14:05)
[2020-11-18 12:10] LABS: BASO % 0.4 % (0.0-1.0); EOS # 0.1 10^3/uL (0.0-0.5); EOS % 0.7 % (0.0-3.0); HEMATOCRIT 40.4 % (42.0-52.0); HEMOGLOBIN 13.6 g/dl (13.5-17.5); LYMPH # 1.4 10^3/uL (1.5-5.0); LYMPH % 13.9 % (24.0-44.0); MEAN CORPUSCULAR HEMOGLOBIN 28.6 pg (27.0-33.0); MEAN CORPUSCULAR HGB CONC 33.7 g/dl (32.0-36.5); MEAN CORPUSCULAR VOLUME 85.1 fl (80.0-96.0); MONO % 9.6 % (2.0-8.0); NEUTROPHILS # 7.7 10^3/uL (1.5-8.5); NEUTROPHILS % 74.9 % (36.0-66.0); PLATELET COUNT, AUTOMATED 228 10^3/uL (150-450); RED BLOOD COUNT 4.75 10^6/uL (4.30-6.10); WHITE BLOOD COUNT 10.2 10^3/uL (4.0-10.0)
[2020-11-18] MEDS ORDERED: ISOVUE-370 76% 100ML VIAL As Ordered ONE (12:21)
[2020-11-18 12:22] LABS: INR 0.94; PARTIAL THROMBOPLASTIN TIME 25.8 SECONDS (24.2-38.5); PROTHROMBIN TIME 12.8 SECONDS (12.5-14.3)
[2020-11-18 12:39] LABS: ALBUMIN 3.6 GM/DL (3.2-5.2); BILIRUBIN,DIRECT 0.2 MG/DL (0.0-0.2); BILIRUBIN,TOTAL 0.7 MG/DL (0.2-1.0); TOTAL PROTEIN 6.6 GM/DL (6.4-8.2)
--- NOTE | 2020-11-18 13:50 | REP ---
INDICATION: left groin pain/recent cath/stent with runoff. COMPARISON: CT abdomen pelvis 03/19/2020 TECHNIQUE: Bolus 100 mL Isovue 370 scanning through the abdomen and pelvis and then run off the scanning to the feet. Coronal and sagittal reconstructions and coronal MIP reformats along with curved reformats of the aortoiliac vessels on each side and femoral arteries. FINDINGS: NONVASCULAR CT abdomen: Lung bases show some dependent atelectatic changes in the posterior lower lung zones without effusion or acute infiltrate. Heart unchanged. There is no pericardial thickening or effusion. No hiatal hernia. The liver, spleen, pancreas and adrenal glands are normal. The gallbladder shows a single calcified stone in its dependent portion, a few mm in diameter. Stomach colon and small bowel loops in the upper abdomen are unremarkable. The kidneys show a nonobstructing stone interpolar lower pole junction on the left no hydronephrosis, mass or other acute finding. No periaortic, retroperitoneal or mesenteric pathologic sized lymphadenopathy. There were a few scattered diverticula in the colon without colitis or diverticulitis. The lung window review of all CT slices in the abdomen pelvis shows no perforation or free air. Bone windows show facet arthropathy lower lumbar spine with sacralization transverse process of L5 on the left. No destructive lesions or fractures. Visualized ribs and lower sternum intact. CT pelvis: Bony sacrum, SI joints pelvis and hips show some minor degenerative changes without destructive lesion or fracture. Bladder is well filled and without stone, mass or wall thickening there is no distal ureteral dilatation or stone. Distal left colon and sigmoid with some scattered diverticula but no diverticulitis or colitis. Some ill-defined soft tissue infiltration in the right groin I do not see similar finding on the left with patient reportedly has pain. The right inguinal canal shows small amount of omental fat within compared to the left no bowel herniation. Cecum unremarkable. Appears to be contrast within the cecum and extending into the appendix. The appendix is grossly intact. Some perivascular stranding of fat about the right common femoral and right external iliac extending upward to about image 100 from image 123. I do not see similar findings on the left. Bilateral lower extremities. The thighs and calves show symmetric anterior and posterior compartment musculature. I do not see is subcutaneous edema in the thighs or calves. Likewise I do not see significant swelling about the feet. No soft tissue mass or fluid collection identified. Bone windows show some degenerative changes in the knees and minimally in the ankles and hind foot. VASCULAR: Aorta: There is atherosclerotic calcification of the aorta and some ectasia but no aneurysm or dissection. Calcifications at origins of the right greater than left renal artery, celiac axis and SMA with some mild stenosis for those vessels. The HALLEY is visible on this patient. Right iliac: Atherosclerotic calcifications at the bifurcation common iliac and at the junction of the external iliac and common femoral artery. No stenosis or aneurysm. Left iliac: Atherosclerotic calcifications at the bifurcation and proximal common iliac, origin of the internal iliac and distally at junction of the femoral artery and iliac. No stenosis or aneurysm in the sites. Right lower extremity runoff: Some atherosclerotic plaque in the common femoral artery without stenosis. Takeoff of the profundus artery intact the SFA in the thigh shows scattered plaque without significant stenosis. I do not see significant stenosis of the distal SFA or popliteal artery. Tibioperoneal trunk shows some atherosclerotic plaque. Runoff to the mid calf is noted but atherosclerotic plaques seen throughout and I cannot define vessels to the ankle. Left lower extremity Runoff: Calcifications at the distal common femoral artery, proximal superficial femoral artery and deep femoral artery takeoff without significant stenosis there is no aneurysm. Course of the SFA through the thigh shows multiple scattered calcific plaques throughout without tight stenosis. Plaque at the popliteal artery is noted and a few areas without tight stenosis. The posterior tibial and anterior tibial vessels go to the mid calf. The peroneal vessel ends above that but I cannot discern contrast filled vessel to the ankle. IMPRESSION: 1. Diffuse atherosclerotic calcification of the aorta and ectasia but no aneurysm or dissection. Calcifications at origins of the renal arteries, celiac axis and SMA. Mild stenosis without tight stenosis. HALLEY seen. 2. Bilateral iliacs with atherosclerotic plaque scattered approximately at the bifurcation, in the common iliacs and external iliacs as well as the origin of the left internal iliac. No stenosis or aneurysm. 3. Atherosclerotic plaque in both lower extremities involving the common femoral artery junction with the SFA. No tight stenosis. 4. Bilateral SFA's and popliteal arteries with calcific plaque but no significant stenosis. 5. Runoff vessels to the ankles are not seen beyond the mid calf in this study. This may be technical or small vessel disease. 6. Infiltration of fat adjacent to the common femoral artery and extending upward into the distal external iliac on the RIGHT side without a similar finding on the left side. Fullness of the inguinal canal on the right with omental fat and infiltration of the subcutaneous fat over the right groin, not the left. All this suggests 7. Recent right-sided catheterization. No hematoma collection, this is a more infiltrative pattern. No contrast leak. 8. No other significant acute finding. <Electronically signed by Aquiles Bae > 11/18/20 [id number]
--- NOTE | 2020-11-18 14:55 | REP ---
INDICATION: pain. COMPARISON: Comparison radiograph October 02, 2012.. TECHNIQUE: AP view of the pelvis and AP and frogleg views of the left hip are provided. FINDINGS: Bony pelvic ring is intact. There is retained barium in left colonic diverticuli, the appendix, and in the tip of the cecum. This contrast opacification is seen in the urine in the urinary bladder. There is vascular calcification. Tendon insertion site spurring is seen in the greater and lesser trochanters of the hips. Femoral heads are smooth and rounded bilaterally. No bony destructive lesion is seen. Degenerative disc changes are noted in the lower lumbar spine. AP and frogleg views of the hip on the left show no additional finding. IMPRESSION: Bilateral hip osteoarthritis mild in degree. Tendon insertion site spurring consistent with a chronic tendinopathy. Retained contrast in the colon and urinary bladder. <Electronically signed by Inderjit Jamison > 11/18/20 [id number]
--- NOTE | 2020-11-18 15:12 | REP ---
INDICATION: pain in groin. COMPARISON: 10/25/2010 TECHNIQUE: Multiple ultrasonographic images of the deep venous structures of the left thigh were obtained from the level of the common femoral vein to the popliteal vein in the longitudinal and transverse scan planes along with Doppler interrogation and color flow Doppler imaging. Attempted scanning of proximal calf veins the limited due to body habitus considerations. Right common femoral vein also studied in limited fashion for comparison FINDINGS: There is no abnormal echogenic material seen within any of the visualized deep venous structures that would suggest acute thrombosis. Coaptation is unremarkable throughout. Doppler interrogation shows an expected response to respiratory variability and augmentation. The color flow Doppler images show what appears to be a normal vascular pattern throughout. Body habitus considerations lead to very limited evaluation of calf veins. Right common femoral vein was evaluated but also in a limited fashion as she did not tolerate compression well because of the recent catheterization. IMPRESSION: There is no ultrasonographic evidence of deep venous thrombosis involving any of the visualized deep venous structures of the left thigh as described above. Accredited by the [employer] in Vascular Peripheral Ultrasound. <Electronically signed by Aquiles Bae > 11/18/20 [id number]
[2020-11-18 15:56] VITALS: BP 190/85
--- NOTE | 2020-11-19 09:07 | ED PDOC ---
Post-Departure Follow-Up radiology rpeor tfaxed to [facility] Myra Barth MD Nov 19, 2020 09:07
== END 2020-11-18 16:56 | disposition home or self-care (01) ==
LOC: M ED 10:49
DX: R10.2 Pelvic and perineal pain (principal); R31.9 Hematuria, unspecified; I70.209 Unspecified atherosclerosis of native arteries of extremities, unspecified extremity; E11.9 Type 2 diabetes mellitus without complications; I10 Essential (primary) hypertension; E78.5 Hyperlipidemia, unspecified; G47.30 Sleep apnea, unspecified; M54.9 Dorsalgia, unspecified; F41.9 Anxiety disorder, unspecified; F32.9 Major depressive disorder, single episode, unspecified; K21.9 Gastro-esophageal reflux disease without esophagitis; K57.92 Diverticulitis of intestine, part unspecified, without perforation or abscess without bleeding; K22.70 Barrett's esophagus without dysplasia; I85.00 Esophageal varices without bleeding; R16.0 Hepatomegaly, not elsewhere classified; Z95.1 Presence of aortocoronary bypass graft; Z95.5 Presence of coronary angioplasty implant and graft; Z79.82 Long term (current) use of aspirin; Z79.84 Long term (current) use of oral hypoglycemic drugs; Z79.899 Other long term (current) drug therapy; Z91.041 Radiographic dye allergy status
CPT/HCPCS: 73502; 75635; 76700; 80047; 80076; 81001; 83605; 83690; 85025; 85610; 85730; 93971; 93975; 96374; 99284; J1200; J2270; J2930; Q9967

== ENCOUNTER → 2020-11-18 | Outpatient (CLI) | payer MEDICARE ==
[~2020-11-18] MED LIST changes: +CLOP75TA2; +IRBE75TA4; +METO1TAB32
--- NOTE | 2020-11-18 08:35 | REP ---
INDICATION: ESO VERECES. COMPARISON: CT ABDOMEN PELVIS 03/19/2020 TECHNIQUE: Complete abdomen ultrasound with the color imaging and duplex Doppler interrogation of hepatic vasculature. FINDINGS: Abdomen: Liver is somewhat heterogeneous in echotexture with coarsened echotexture. Some of its margins are slightly lobulated. No discrete hepatic mass or biliary dilatation. The gallbladder shows no visible stone, sludge or pericholecystic fluid. No gallbladder wall thickening or mass. Common duct is 3.4 mm, unremarkable. Pancreas is seen and shows no abnormality. The right kidney is 10.7 x 6.9 x 5.7 cm on the left is 12.5 x 6.2 x 6.3 cm both show sinus lipomatosis. Cortical thickness and echogenicity is normal for each. Visualized aorta unremarkable. There is no ascites in the upper abdomen. The spleen is homogeneous measuring 11.3 x 10.5 x 5.4 cm. No mass or focal abnormality. Abdominal Doppler: The main portal vein diameter is 15.2 mm. The common duct is 3.4 mm. No Paddock mass, upper abdominal ascites or visible gallstones. Hepatic artery shows peak systolic velocity 99 cm/S. Resistive index 0.87. Splenic vein velocity: 10 cm/S near hilum, 50 cm/S near main portal vein. SMV velocity: 19 cm/S near main portal vein. Main portal vein: 26 cm/S Major intrahepatic portal vessels: 13, 11 and 12 cm/S right to left respectively. 4 hours from the spleen into the liver. The hepatic veins demonstrate some loss of cardiac phasicity. IMPRESSION: 1. Coarsened echotexture of liver slightly lobulated contour suggesting chronic liver disease. No Paddock mass, biliary dilatation or ascites. 2. Gallbladder, common bile duct, pancreas, kidneys, spleen and aorta grossly unremarkable. 3. Hepatopetal flow from splenic vein and SMV into the portal vein, normal. Main portal vein is enlarged. 4. Hepatic vein interrogation shows loss of cardiac phasicity suggesting cirrhosis. <Electronically signed by Aquiles Bae > 11/18/20 [id number]
== END ==
LOC: M RAD 07:12
PROVIDERS: ATTEND Internal Medicine Gastroenterology
DX: I85.00 Esophageal varices without bleeding (principal); R16.0 Hepatomegaly, not elsewhere classified

== ENCOUNTER 2020-11-28 12:25 | Emergency (ER) | payer MEDICARE ==
[~2020-11-28] VITALS: Ht 175.3 cm; Wt 91.8 kg
[~2020-11-28 12:25] MED LIST changes: +CLOP75TA2; +IRBE75TA4; +METO1TAB32
[2020-11-28] MEDS ORDERED: ASPIRIN 81 MG CHEW TABLET PO ONE (12:50)
[2020-11-28] MEDS ORDERED: MORPHINE 2 MG/ML 1ML VIAL (J2270) IV ONE (12:50)
[2020-11-28 13:01] LABS: BASO % 0.5 % (0.0-1.0); EOS # 0.1 10^3/uL (0.0-0.5); EOS % 1.7 % (0.0-3.0); HEMATOCRIT 35.9 % (42.0-52.0); LYMPH # 1.4 10^3/uL (1.5-5.0); LYMPH % 18.6 % (24.0-44.0); MEAN CORPUSCULAR HEMOGLOBIN 28.2 pg (27.0-33.0); MEAN CORPUSCULAR HGB CONC 33.4 g/dl (32.0-36.5); MEAN CORPUSCULAR VOLUME 84.3 fl (80.0-96.0); MONO # 0.7 10^3/uL (0.0-0.8); MONO % 9.3 % (2.0-8.0); NEUTROPHILS # 5.3 10^3/uL (1.5-8.5); NEUTROPHILS % 69.2 % (36.0-66.0); PLATELET COUNT, AUTOMATED 240 10^3/uL (150-450); RED BLOOD COUNT 4.26 10^6/uL (4.30-6.10); WHITE BLOOD COUNT 7.7 10^3/uL (4.0-10.0)
--- NOTE | 2020-11-28 13:03 | REP ---
INDICATION: CHEST PAIN. COMPARISON: Portable chest dated 11/13/2020. TECHNIQUE: Portable AP chest with the patient upright. FINDINGS: The lung russ are clear. Mildly enlarged, unchanged, possible portable positioning artifact. The lizbet, mediastinum and skeletal structures are unremarkable, except for a tracheostomy, unchanged.. IMPRESSION: No acute cardiopulmonary findings. Cardiac size appears mildly enlarged, unchanged, possible portable positioning artifact. Tracheostomy, unchanged. <Electronically signed by Khalif Valdez > 11/28/20 [id number]
[2020-11-28] MEDS: NITROGLYCERIN 0.4 MG SUBL TABLET SL PRN ×3 (13:14→13:26)
[2020-11-28 13:26] VITALS: BP 152/73
[2020-11-28 13:27] LABS: BLOOD UREA NITROGEN 21 MG/DL (7-18); CALCIUM LEVEL 8.7 MG/DL (8.8-10.2); CARBON DIOXIDE LEVEL 22 MEQ/L (21-32); CHLORIDE LEVEL 113 MEQ/L (98-107); CREATININE FOR GFR 0.79 MG/DL (0.70-1.30); GLOMERULAR FILTRATION RATE > 60.0 (>42); GLUCOSE, FASTING 86 MG/DL (70-100); SODIUM LEVEL 143 MEQ/L (136-145)
[2020-11-28] MEDS ORDERED: methylPREDNISolone 125MG 2ML VIAL IV ONE (13:45)
[2020-11-28] MEDS ORDERED: diphenhydrAMINE 50MG/ML VIAL (J1200) IM ONE (13:45)
[2020-11-28] MEDS ORDERED: ISOVUE-370 76% 100ML VIAL As Ordered ONE (14:15)
[2020-11-28 14:22] LABS: RSV AMPLIFICATION NEGATIVE (NEGATIVE)
--- NOTE | 2020-11-28 15:14 | REP ---
INDICATION: chest. COMPARISON: 11/13/2020. TECHNIQUE: Chest CT with IV contrast, pulmonary artery CT angiography protocol. FINDINGS: There are no emboli in the pulmonary trunk or central pulmonary arteries. There are no emboli in the pulmonary artery lobar segment branches. There are no infiltrates or pleural effusions. There are no lung masses or nodules. There is dependent atelectasis in the posterior lung russ bilaterally. The thoracic aorta is unremarkable. Cardiac size is upper normal. There is no pericardial effusion. Upper abdomen: There is a small gallbladder calculus near the gallbladder neck, unchanged. The gallbladder is otherwise unremarkable. The visualized areas of the hepatic parenchyma, gallbladder and pancreas are unremarkable. The adrenals and renal upper poles are unremarkable. IMPRESSION: There are no pulmonary emboli. There are no acute cardiopulmonary findings. Small gallbladder calculus, unchanged. <Electronically signed by Khalif Valdez > 11/28/20 [id number]
[2020-11-28] MEDS ORDERED: MORPHINE 4 MG/ML 1ML VIAL/SYRINGE (J2270) IV ONE (16:05)
[2020-11-28 16:15] VITALS: BP 137/69
--- NOTE | 2020-11-28 20:29 | ECGEPIP ---
[facility] - ED Test Date: 2020-11-28 Pat Name: TARSHA GARRISON Department: Room: - Gender: Male Sizing End Bander: : 1950 Requested By: BASSAM Chavez Order Number: [id number] Reading MD: Myra Blake Measurements Intervals [place] Rate: 53 P: 26 RI: 184 QRS: -40 QRSD: 86 T: 12 QT: 436 QTc: 409 Interpretive Statements Sinus bradycardia with premature atrial complexes Left axis deviation NSTTW abnormalities decreased rate 11/13/20 Electronically Signed on 11-28-2020 20:29:34 EDT by Myra Blake
== END 2020-11-28 16:36 | disposition short-term general hospital (02) ==
LOC: M ED 12:25
DX: R00.1 Bradycardia, unspecified (principal); I21.4 Non-ST elevation (NSTEMI) myocardial infarction; I25.2 Old myocardial infarction; E11.9 Type 2 diabetes mellitus without complications; I10 Essential (primary) hypertension; E78.5 Hyperlipidemia, unspecified; K21.9 Gastro-esophageal reflux disease without esophagitis; G47.30 Sleep apnea, unspecified; Z95.5 Presence of coronary angioplasty implant and graft; Z79.82 Long term (current) use of aspirin; Z79.84 Long term (current) use of oral hypoglycemic drugs; Z79.899 Other long term (current) drug therapy; Z91.041 Radiographic dye allergy status
CPT/HCPCS: 71045; 71275; 80048; 84484; 85025; 87631; 93005; 93041; 94760; 96372; 96374; 96375; 96376; 99285; J1200; J2270; J2930; Q9967

== ENCOUNTER 2020-12-10 16:43 | Inpatient (IN) | payer MEDICARE ==
[~2020-12-10] VITALS: Ht 175.3 cm; Wt 92.0 kg
[~2020-12-10 16:43] MED LIST changes: -CLOP75TA2; +TIMO0.5S29 OU
[2020-12-10] MEDS ORDERED: DEXTROSE 50% 50 ML SYRINGE IV STA ×3 (18:05→21:32)
[2020-12-10 18:14] LABS: VENOUS BASE EXCESS -2.5 (-2.0-2.0); VENOUS HCO3 22.3 MEQ/L (23.0-27.0); VENOUS O2 SATURATION 75.3 % (60.0-80.0); VENOUS PARTIAL PRESSURE O2 38.9 mmHg (30.0-50.0); VENOUS PH 7.376 UNITS (7.330-7.430); VENOUS STANDARD HCO3 21.9 MEQ/L; VENOUS TOTAL CO2 23.5 MEQ/L (24.0-28.0)
[2020-12-10 18:15] LABS: BASO % 0.5 % (0.0-1.0); EOS # 0.2 10^3/uL (0.0-0.5); EOS % 1.8 % (0.0-3.0); HEMATOCRIT 35.8 % (42.0-52.0); HEMOGLOBIN 12.1 g/dl (13.5-17.5); LYMPH # 1.4 10^3/uL (1.5-5.0); LYMPH % 16.4 % (24.0-44.0); MEAN CORPUSCULAR HEMOGLOBIN 28.1 pg (27.0-33.0); MEAN CORPUSCULAR HGB CONC 33.8 g/dl (32.0-36.5); MEAN CORPUSCULAR VOLUME 83.3 fl (80.0-96.0); MONO # 0.7 10^3/uL (0.0-0.8); MONO % 8.4 % (2.0-8.0); NEUTROPHILS # 6.3 10^3/uL (1.5-8.5); NEUTROPHILS % 72.7 % (36.0-66.0); PLATELET COUNT, AUTOMATED 223 10^3/uL (150-450); WHITE BLOOD COUNT 8.7 10^3/uL (4.0-10.0)
[2020-12-10 18:42] LABS: OSMOLALITY SERUM 283 MOSM/KG (280-301)
[2020-12-10 18:43] LABS: ALBUMIN 3.5 GM/DL (3.2-5.2); ALT/SGPT 21 U/L (12-78); BILIRUBIN,DIRECT 0.2 MG/DL (0.0-0.2); BILIRUBIN,TOTAL 0.7 MG/DL (0.2-1.0); BLOOD UREA NITROGEN 18 MG/DL (7-18); CALCIUM LEVEL 8.8 MG/DL (8.8-10.2); CARBON DIOXIDE LEVEL 25 MEQ/L (21-32); CHLORIDE LEVEL 111 MEQ/L (98-107); CREATININE FOR GFR 0.97 MG/DL (0.70-1.30); GLOMERULAR FILTRATION RATE > 60.0 (>42); GLUCOSE, FASTING 49 MG/DL (70-100); LIPASE 69 U/L (73-393); MAGNESIUM LEVEL 1.8 MG/DL (1.8-2.4); POTASSIUM SERUM 3.8 MEQ/L (3.5-5.1); SODIUM LEVEL 141 MEQ/L (136-145); TOTAL PROTEIN 6.4 GM/DL (6.4-8.2)
[2020-12-10 19:12] LABS: HEMOGLOBIN A1c 5.9 %
[2020-12-10] MEDS ORDERED: D5W/0.45% SODIUM CHLORIDE 1,000 ML IV SCH (19:40)
[2020-12-10] MEDS: DOCUSATE SODIUM 100MG CAPSULE PO SCH (21:00)
[2020-12-10] MEDS: OLOPATADINE 0.1% OPHTH SOL 5ML(PATANOL) OU SCH (21:00)
[2020-12-10] MEDS: ATORVASTATIN 20 MG TAB PO SCH (21:00)
[2020-12-10] MEDS: TIMOLOL MALEATE 0.5% OPHTH SOLN 5 ML OU SCH (21:00)
[2020-12-10] MEDS ORDERED: COSOPT OCUMETER PLUS 10ML (DORZOLAMIDE/TIMOLOL) OU SCH (21:00)
[2020-12-10] MEDS ORDERED: D10W/0.45% SODIUM CHLORIDE 1,000 ML IV SCH (21:35)
[2020-12-10] MEDS ORDERED: OLOP0.1D OU (23:18)
[2020-12-10 23:23] LABS: RSV AMPLIFICATION NEGATIVE (NEGATIVE)
[2020-12-10] MEDS ORDERED: AMLO1TAB25 PO (23:23)
[2020-12-10] MEDS ORDERED: ISOS1TAB36 PO (23:23)
[2020-12-10] MEDS ORDERED: APAP325T4 PO (23:23)
[2020-12-10] MEDS ORDERED: HOME MED LIST COMPLETE! XX SCH (23:30)
[2020-12-11] MEDS ORDERED: MAALOX 30 ML SUSP *UDC PO PRN
[2020-12-11] MEDS ORDERED: ACETAMINOPHEN TAB 650MG DOSE (2X325MG) PO PRN
[2020-12-11] MEDS ORDERED: MOM 30ML SUSPENSION UDC PO PRN
[2020-12-11] MEDS ORDERED: DEXTROSE 50% 50 ML SYRINGE IV STA (00:04)
[2020-12-11] MEDS ORDERED: DEXTROSE 50% 50 ML SYRINGE IV PRN ×2 (00:05→02:15)
[2020-12-11] MEDS ORDERED: NITROGLYCERIN 0.4 MG SUBL TABLET SL PRN (00:05)
[2020-12-11] MEDS ORDERED: GLUCAGON INJ 1MG VIAL SC PRN (00:05)
[2020-12-11] MEDS ORDERED: GLUCOSE 4GM CHEW TABLET PO PRN (00:05)
--- NOTE | 2020-12-11 00:17 | HPEPDOC ---
[facility] Medical History & Physical Date of Admission Dec 10, 2020 Date of Service: Dec 10, 2020 Attending Physician: ANJEL PERRY MD History and Physical CHIEF COMPLAINT: [70 y/o male c/o hypoglycemia, abd pain x1 day] HISTORY OF PRESENT ILLNESS: [This is a 70 y/o male with a pmh of cad s/p stenting, hld, htn, dm2, recently diagnosed cirrhosis of unknown etiology who presents to our ED on 12/10 after noting his sugars to be low. Patient states that he woke up at approx 4 am and noted his sugars to be low and attempted to correct them with food to no success. Despite continued low sugars, patient still took his daily diabetic medications of metformin and glipizide. Patients sugars continued to be low despite oral intake and thus decided to report to the ED d/t malaise, tremulousness and abd pain. Patient, at the time of my exam, tells me that he stills feels "like my sugar is low." Patient denies any syncope, chest pains, sob, n/v/d/c, pedal edema. Initial blood glucose upon presentation to the ED was 32.] PAST MEDICAL HISTORY: 1. [See HPI PAST SURGICAL HISTORY: 1. [Cardiac cath x5]. 2. [Tracheostomy placement for padmaja]. 3. [Cystoscopy and ureteral stent placement 4. Ankle ORIF 5. Left meniscus repair]. SOCIAL HISTORY: Tobacco use:[Denies] ETOH: [Denies] Illicit drug use: [Denies] FAMILY HISTORY: Reviewed - none pertinent ALLERGIES: Please see below. REVIEW OF SYSTEMS: CONSTITUTIONAL: [See HPI]. HEENT: [Denies uri sx]. CARDIOVASCULAR: [Denies chest pain, palpitations]. RESPIRATORY: [Denies sob, wheezing]. GASTROINTESTINAL: [See HPI]. GENITOURINARY: [Denies dysuria]. SKIN: [Denies rash]. MUSCULOSKELETAL: [Denies acute joint/back pain]. NEUROLOGICAL: [Denies syncope, paresthesias]. ENDOCRINE: [Hx of DM]. HEMATOLOGIC/LYMPHATIC: [Denies hx of vte]. HOME MEDICATIONS: Please see below. PHYSICAL EXAMINATION: VITAL SIGNS: Please see below. GENERAL APPEARANCE: [This is a fatigued appearing 70 y/o male. He is alert and oriented to all questioning. He does not appear to be in any acute distress.]. HEENT: [No mass or lesion. EOMI. No scleral icterus. Nares patient. Oral mucosa moist.]. CARDIOVASCULAR: [Regular rate, rhythm. 3/6 murmur appreciated best at LUSB.]. LUNGS: [Good air flow b/l. No wheezing, rales, rhonchi]. ABDOMEN: [Soft, nontender]. MUSCULOSKELETAL: [No joint deformity noted.]. EXTREMITIES: [No pedal edema appreciated. Pulses intact. No overlying skin changes.]. NEUROLOGICAL: [Speech clear. A+Ox3. No focal deficits.]. PSYCHIATRIC: [Mood and affect appear appropriate.]. LABORATORY DATA: See below. IMAGING: [None performed] MICROBIOLOGY: Please see below. ASSESSMENT: [This is a 70 y/o male with a pmh of cad s/p stenting, hld, htn, dm2, recently diagnosed cirrhosis of unknown etiology who presents to our ED on 12/10 after noting his sugars to be low. Patient states that he woke up at approx 4 am and noted his sugars to be low and attempted to correct them with food to no success. Despite continued low sugars, patient still took his daily diabetic medications of metformin and glipizide. Patients sugars continued to be low despite oral intake and thus decided to report to the ED]. . PLAN: 1. [Hypoglycemia - Sugar upon presentation to the ED 32. Continued to dip despite d10 and multiple 1/2 amps of d50 - Likely due to maximum dose of glipizide i/s/o liver cirrhosis. - Lower suspicion of infection as source of hypoglycemia, procal ordered to rule this out. No fever, leukocytosis, other sirs criteria - Holding all diabetic medications at this time. Glipizide should be dc'ed period. Patients a1c was 5.9, will likely have adequate control without it. - Will continue d10/0.45ns on the floor - fingersticks q4 - will give amp of d50 for fsbs <60 - Admit to pcu for tx 2. Liver cirrhosis - Patient states this was recently diagnosed, follows with gi outpatient - Does not appear to be decompensated at this time, liver enzymes wnl. 3. CAD - continue metoprolol, isosorbide, plavix, asa, nitro 4. HTN - continue amlodipine 5. Glaucoma - continue at home eye drops 6. HLD - continue atorvastatin DVT prophylaxis - pt on plavix and asa]. Vital Signs Vital Signs Date Time Temp Pulse Resp B/P (MAP) Pulse Ox O2 Delivery O2 Flow Rate FiO2 12/10/20 23:45 54 16 125/67 (86) 95 Room Air 12/10/20 16:45 98.3 Laboratory Data Labs 24H Laboratory Tests 2 12/10/20 17:47: Immature Granulocyte % (Auto) 0.2, Neutrophils (%) (Auto) 72.7H, Lymphocytes (%) (Auto) 16.4L, Monocytes (%) (Auto) 8.4H, Eosinophils (%) (Auto) 1.8, Basophils (%) (Auto) 0.5, Neutrophils # (Auto) 6.3, Lymphocytes # (Auto) 1.4L, Monocytes # (Auto) 0.7, Eosinophils # (Auto) 0.2, Basophils # (Auto) 0.0, Nucleated Red Blood Cells % (auto) 0.0, Blood Gas Bicarbonate Standard 21.9, Venous Blood pH 7.376, Venous Blood Partial Pressure CO2 39.0, Venous Blood Partial Pressure O2 38.9, Venous Blood Total Carbon Dioxide 23.5L, Venous Blood HCO3 22.3L, Venous Blood Oxygen Saturation 75.3, Venous Blood Base Excess -2.5L, Anion Gap 5L, Glomerular Filtration Rate > 60.0, Estimated Mean Plasma Glucose 123H, Hemoglobin A1c 5.9, Osmolality 283, Calcium Level 8.8, Magnesium Level 1.8, Total Bilirubin 0.7, Direct Bilirubin 0.2, Aspartate Amino Transf (AST/SGOT) 11, Alanine Aminotransferase (ALT/SGPT) 21, Alkaline Phosphatase 50, Total Protein 6.4, Albumin 3.5, Albumin/Globulin Ratio 1.2, Lipase 69L, B-Hydroxybutyrate 0.80 12/10/20 18:03: Bedside Glucose (Misc Panel) 51L 12/10/20 18:28: Bedside Glucose (Misc Panel) 103 12/10/20 19:38: Bedside Glucose (Misc Panel) 33*L 12/10/20 20:30: Bedside Glucose (Misc Panel) 60L 12/10/20 21:32: Bedside Glucose (Misc Panel) 32*L 12/10/20 22:30: Bedside Glucose (Misc Panel) 70L 12/10/20 22:39: Coronavirus (COVID-19)(PCR) NEGATIVE, Influenza Type A (RT-PCR) NEGATIVE, Inf luenza Type B (RT-PCR) NEGATIVE, Respiratory Syncytial Virus (PCR) NEGATIVE 12/10/20 23:26: Bedside Glucose ([facility] Panel) 45L CBC/BMP Laboratory Tests 12/10/20 17:47 Home Medications Scheduled Amlodipine Besylate (Amlodipine Besylate) 10 Mg Tablet, 10 MG PO DAILY Aspirin (Aspirin EC) 81 Mg Tab, 81 MG PO DAILY Atorvastatin Calcium (Atorvastatin Calcium) 40 Mg Tab, 40 MG PO QHS Clopidogrel Bisulfate (Clopidogrel) 75 Mg Tablet, 75 MG PO DAILY Dorzolamide HCl/Timolol Maleat (Cosopt Eye Drops) 1 Ml Soln, 1 DROP OU BID Dulaglutide (Trulicity) 1.5 Mg/0.5 Ml Inj, 1.5 MG SC 1XWK SUNDAY Glipizide (Glipizide ER) 10 Mg Tab.er.24, 10 MG PO DAILY PT STATES PCP TOLD HIM TO HOLD AFTER DOSE TAKEN TODAY Isosorbide Mononitrate (Isosorbide Mononitrate ER) 60 Mg Tab.er.24h, 120 MG PO DAILY Latanoprost/Pf (Latanoprost 0.005% Eye Drop) 7.5 Ml Drops, 1 DROP OU QHS Metformin HCl (Metformin HCl) 500 Mg Tab, 1,000 MG PO BID Metoprolol Succinate (Metoprolol Succinate) 25 Mg Tab.er.24h, 12.5 MG DAILY Olopatadine HCl (Olopatadine HCl) 0.1% 5ML Drops, 1 DROP OU BID Pantoprazole Sodium (Pantoprazole Sodium) 40 Mg Tab, 40 MG PO DAILY Timolol Maleate (Timolol Maleate) 0.5% 5ML Drops, 1 DROP OU BID Scheduled PRN Acetaminophen (Acetaminophen) 325 Mg Tablet, 325 MG PO Q4-6HP PRN for pain or fever Nitroglycerin (Nitroglycerin) 0.4 Mg Sub, 0.4 MG SL PRN PRN for CHEST PAIN Allergies Coded Allergies: Contrast Media (Verified Adverse Reaction, Intermediate, VIOLENT SNEEZING- CARDIAC CATH DYE, 11/18/20) A-FIB/CHADSVASC A-FIB History Current/History of A-Fib/PAF?: No MCKILLOP,MANDO D PA Dec 11, 2020 00:17
[2020-12-11 00:51] LABS: INR 1.04
[2020-12-11 00:52] LABS: PARTIAL THROMBOPLASTIN TIME 31.9 SECONDS (25.9-37.0)
[2020-12-11 03:12] VITALS: BP 153/70
[2020-12-11] MEDS: D10W/0.45% SODIUM CHLORIDE 1,000 ML IV SCH ×4 (04:20→21:00)
[2020-12-11 04:23] LABS: APPEARANCE, URINE CLEAR (CLEAR); BACTERIA, URINE AUTO NEGATIVE (NEGATIVE); BILIRUBIN, URINE AUTO NEGATIVE (NEGATIVE); BLOOD, URINE BLOOD NEGATIVE (NEGATIVE); COLOR, URINE YELLOW (YELLOW); GLUCOSE, URINE (UA) AUTO 1+ mg/dL (NEGATIVE); KETONE, URINE AUTO NEGATIVE (NEGATIVE); LEUKOCYTE ESTERASE, URINE AUTO NEGATIVE (NEGATIVE); NITRITE, URINE AUTO NEGATIVE (NEGATIVE); PROTEIN, URINE AUTO NEGATIVE (NEGATIVE); RBC, URINE AUTO 0 /HPF (0-3); SPECIFIC GRAVITY URINE AUTO 1.005 (1.002-1.035); SQUAMOUS EPITHELIAL CELL UR AU 0 /HPF (0-6); UROBILINOGEN, URINE AUTO 0.2 mg/dL (0.0-2.0); WBC, URINE AUTO 1 /HPF (0-3)
[2020-12-11 06:16] LABS: HEMATOCRIT 33.7 % (42.0-52.0); HEMOGLOBIN 11.4 g/dl (13.5-17.5); MEAN CORPUSCULAR HEMOGLOBIN 28.2 pg (27.0-33.0); MEAN CORPUSCULAR HGB CONC 33.8 g/dl (32.0-36.5); MEAN CORPUSCULAR VOLUME 83.4 fl (80.0-96.0); PLATELET COUNT, AUTOMATED 213 10^3/uL (150-450); RED BLOOD COUNT 4.04 10^6/uL (4.30-6.10); WHITE BLOOD COUNT 6.6 10^3/uL (4.0-10.0)
[2020-12-11 06:34] LABS: BLOOD UREA NITROGEN 12 MG/DL (7-18); CALCIUM LEVEL 8.3 MG/DL (8.8-10.2); CARBON DIOXIDE LEVEL 26 MEQ/L (21-32); CHLORIDE LEVEL 111 MEQ/L (98-107); CREATININE FOR GFR 0.77 MG/DL (0.70-1.30); GLOMERULAR FILTRATION RATE > 60.0 (>42); GLUCOSE, FASTING 84 MG/DL (70-100); MAGNESIUM LEVEL 1.7 MG/DL (1.8-2.4); POTASSIUM SERUM 3.4 MEQ/L (3.5-5.1); SODIUM LEVEL 143 MEQ/L (136-145)
[2020-12-11 08:00] VITALS: BP 128/66
[2020-12-11] MEDS: METOPROLOL SUCC *XL* 12.5MG PER 1/2 TAB (TopROL *XL*) PO SCH (09:00)
[2020-12-11] MEDS: ENOXAPARIN 40MG/0.4ML SYRINGE (J1650 PER 10MG) SC SCH (09:02)
[2020-12-11] MEDS: ASPIRIN 81MG ENTERIC TABLET PO SCH (09:03)
[2020-12-11] MEDS: TIMOLOL MALEATE 0.5% OPHTH SOLN 5 ML OU SCH ×2 (09:03→22:05)
[2020-12-11] MEDS: OLOPATADINE 0.1% OPHTH SOL 5ML(PATANOL) OU SCH ×2 (09:03→22:05)
[2020-12-11] MEDS: PANTOPRAZOLE 40MG TAB (PROTONIX) PO SCH (09:04)
[2020-12-11] MEDS: DOCUSATE SODIUM 100MG CAPSULE PO SCH ×2 (09:07→21:00)
[2020-12-11] MEDS: CLOPIDOGREL 75 MG TAB PO SCH (09:07)
[2020-12-11] MEDS: ISOSORBIDE MON. (IMDUR) 60 MG XR TAB PO SCH (10:22)
[2020-12-11 11:34] VITALS: BP 132/66
--- NOTE | 2020-12-11 13:18 | IPNPDOC ---
Date Seen The patient was seen on 12/11/20. Progress Note SUBJECTIVE: Patient was seen and examined at bedside this morning. Patient was found to be hypoglycemic to 38 this morning despite being on D10 infusion. Patient received an additional amp of D50. Has been tolerating a full regular diet. Denies lightheadedness chest pain shortness of breath cavitations nausea vomiting diarrhea. OBJECTIVE PHYSICAL EXAMINATION: VITAL SIGNS: please see below General: NAD, comfortable HEENT: PERRLA, EOMI, sclerae clear Neck: supple, normal ROM, no JVD Respiratory: lungs CTAB, no wheeze, no rales, no crackles CVS: RRR, normal S1, S2, no murmurs Abdo: soft, no masses, no hepatosplenomegaly, BS+, no rebound tenderness Extremities: no edema, pulses 2+ MSK: no joint deformities, normal ROM Neuro: no focal neuro deficits, moving all 4 extremities, CN2-12 intact. Strength 5/5 in all 4 extremities. No nystagmus. Psych: calm, cooperative, AAO x 3 LABORATORY DATA, IMAGING STUDIES, MICROBIOLOGY: Please see below. DVT prophylaxis ordered?: Mechanical ASSESSMENT AND PLAN: Mr. Bermeo is a 70-year-old male with a past medical history of coronary artery disease status post stenting, diabetes type 2, hyperlipidemia, hypertension, liver cirrhosis, presented to the ER with hypoglycemia and inability to correct at home. Patient take Metformin and glipizide. PROBLEMS: #Hypoglycemia - Sugar upon presentation to the ED 32. Continued to dip despite d10 and multiple 1/2 amps of d50 - Likely due to maximum dose of glipizide i/s/o liver cirrhosis. - Lower suspicion of infection as source of hypoglycemia, procal ordered to rule this out. No fever, leukocytosis, other sirs criteria - Holding all diabetic medications at this time.A1c 5.9. DC glipizide. - Will continue d10/0.45ns on the floor - fingersticks q4 - will give amp of d50 for fsbs <60 - Admit to pcu for tx #Hypokalemia - replace #hypomagnesemia - replace # Liver cirrhosis - Patient states this was recently diagnosed, follows with gi outpatient - Does not appear to be decompensated at this time, liver enzymes wnl. #CAD - continue metoprolol, isosorbide, plavix, asa, nitro # HTN - continue amlodipine # Glaucoma - continue at home eye drops # HLD - continue atorvastatin DVT prophylaxis - pt on plavix and asa. VS, I&O, 24H, Fishbone Vital Signs/I&O Vital Signs Date Time Temp Pulse Resp B/P (MAP) Pulse Ox O2 Delivery O2 Flow Rate FiO2 12/11/20 11:34 97.3 53 18 132/66 (88) 96 Room Air I&O- Last 24 Hours up to 6 AM 12/11/20 06:00 Intake Total 900 ml Output Total 550 ml Balance 350 ml Laboratory Data 24H LABS Laboratory Tests 2 12/10/20 17:47: Immature Granulocyte % (Auto) 0.2, Neutrophils (%) (Auto) 72.7H, Lymphocytes (%) (Auto) 16.4L, Monocytes (%) (Auto) 8.4H, Eosinophils (%) (Auto) 1.8, Basophils (%) (Auto) 0.5, Neutrophils # (Auto) 6.3, Lymphocytes # (Auto) 1.4L, Monocytes # (Auto) 0.7, Eosinophils # (Auto) 0.2, Basophils # (Auto) 0.0, Nucleated Red Blood Cells % (auto) 0.0, Blood Gas Bicarbonate Standard 21.9, Venous Blood pH 7.376, Venous Blood Partial Pressure CO2 39.0, Venous Blood Partial Pressure O2 38.9, Venous Blood Total Carbon Dioxide 23.5L, Venous Blood HCO3 22.3L, Venous Blood Oxygen Saturation 75.3, Venous Blood Base Excess -2.5L, Anion Gap 5L, Glomerular Filtration Rate > 60.0, Estimated Mean Plasma Glucose 123H, Hemoglobin A1c 5.9, Osmolality 283, Calcium Level 8.8, Magnesium Level 1.8, Total Bilirubin 0.7, Direct Bilirubin 0.2, Aspartate Amino Transf (AST/SGOT) 11, Alanine Aminotransferase (ALT/SGPT) 21, Alkaline Phosphatase 50, Total Protein 6.4, Albumin 3.5, Albumin/Globulin Ratio 1.2, Lipase 69L, B-Hydroxybutyrate 0.80 12/10/20 18:03: Bedside Glucose (Misc Panel) 51L 12/10/20 18:28: Bedside Glucose (Misc Panel) 103 12/10/20 19:38: Bedside Glucose (Misc Panel) 33*L 12/10/20 20:30: Bedside Glucose (Misc Panel) 60L 12/10/20 21:32: Bedside Glucose (Misc Panel) 32*L 12/10/20 22:30: Bedside Glucose (Misc Panel) 70L 12/10/20 22:39: Coronavirus (COVID-19)(PCR) NEGATIVE, Influenza Type A (RT-PCR) NEGATIVE, Influenza Type B (RT-PCR) NEGATIVE, Respiratory Syncytial Virus (PCR) NEGATIVE 12/10/20 23:26: Bedside Glucose (Misc Panel) 45L 12/11/20 00:19: Prothrombin Time 14.0, Prothromb Time International Ratio 1.04, Activated Partial Thromboplast Time 31.9 12/11/20 00:42: Bedside Glucose (Misc Panel) 104 12/11/20 01:55: Bedside Glucose (Misc Panel) 47L 12/11/20 02:43: Bedside Glucose (Misc Panel) 72L 12/11/20 04:02: Bedside Glucose (Misc Panel) 63L 12/11/20 04:12: Urine Color YELLOW, Urine Appearance CLEAR, Urine pH 6.0, Urine Specific Lindsay 1.005, Urine Protein NEGATIVE, Urine Glucose (Auto)(UA) 1+H, Urine Ketones (Auto) NEGATIVE, Urine Blood NEGATIVE, Urine Nitrite NEGATIVE, Urine Bilirubin NEGATIVE, Urine Urobilinogen 0.2, Urine Leukocyte Esterase (Auto) NEGATIVE, Urine WBC (Auto) 1, Urine RBC (Auto) 0, Urine Hyaline Casts (Auto) 0, Urine Bacteria (Auto) NEGATIVE, Urine Squamous Epithelial Cells 0, Urine Sperm (Auto) 12/11/20 05:06: Bedside Glucose (Misc Panel) 48L 12/11/20 05:52: Nucleated Red Blood Cells % (auto) 0.0, Anion Gap 6L, Glomerular Filtration Rate > 60.0, Calcium Level 8.3L, Magnesium Level 1.7L, Thyroid Stimulating Hormone (TSH) 1.890, Free Thyroxine 0.90 12/11/20 06:18: Bedside Glucose (Misc Panel) 70L 12/11/20 08:31: Bedside Glucose (Misc Panel) 64L CBC/BMP Laboratory Tests 12/10/20 17:47 12/11/20 05:52 Microbiology Microbiology 12/11/20 Blood Culture, Received Pending 12/11/20 Blood Culture, Received Pending TOMASA SHEN MD Dec 11, 2020 13:18
[2020-12-11 16:00] VITALS: BP 148/69
[2020-12-11] MEDS: MAG SULF 1GM/100ML (MAG RUN) 1 GM in IV 1 EA IV SCH ×2 (16:44→17:58)
[2020-12-11] MEDS ORDERED: POTASSIUM CHLORIDE 10 MEQ SR TABLET PO ONE (17:00)
[2020-12-11 20:00] VITALS: BP 137/66
[2020-12-11] MEDS: ATORVASTATIN 20 MG TAB PO SCH (22:05)
[2020-12-12] VITALS: BP 135/65
[2020-12-12 04:00] VITALS: BP 139/70
[2020-12-12 06:01] LABS: HEMATOCRIT 33.1 % (42.0-52.0); HEMOGLOBIN 11.1 g/dl (13.5-17.5); MEAN CORPUSCULAR HGB CONC 33.5 g/dl (32.0-36.5); MEAN CORPUSCULAR VOLUME 83.4 fl (80.0-96.0); PLATELET COUNT, AUTOMATED 208 10^3/uL (150-450); RED BLOOD COUNT 3.97 10^6/uL (4.30-6.10); WHITE BLOOD COUNT 6.7 10^3/uL (4.0-10.0)
[2020-12-12 06:26] LABS: BLOOD UREA NITROGEN 11 MG/DL (7-18); CALCIUM LEVEL 8.4 MG/DL (8.8-10.2); CARBON DIOXIDE LEVEL 26 MEQ/L (21-32); CHLORIDE LEVEL 110 MEQ/L (98-107); CREATININE FOR GFR 0.82 MG/DL (0.70-1.30); GLOMERULAR FILTRATION RATE > 60.0 (>42); GLUCOSE, FASTING 182 MG/DL (70-100); MAGNESIUM LEVEL 2.1 MG/DL (1.8-2.4); POTASSIUM SERUM 4.1 MEQ/L (3.5-5.1); SODIUM LEVEL 140 MEQ/L (136-145)
[2020-12-12 08:00] VITALS: BP 138/65
[2020-12-12] MEDS: DOCUSATE SODIUM 100MG CAPSULE PO SCH (08:39)
[2020-12-12] MEDS: ENOXAPARIN 40MG/0.4ML SYRINGE (J1650 PER 10MG) SC SCH (08:40)
[2020-12-12] MEDS: ISOSORBIDE MON. (IMDUR) 60 MG XR TAB PO SCH (08:41)
[2020-12-12 08:42] VITALS: BP 139/70
[2020-12-12] MEDS: PANTOPRAZOLE 40MG TAB (PROTONIX) PO SCH (08:42)
[2020-12-12] MEDS: CLOPIDOGREL 75 MG TAB PO SCH (08:42)
[2020-12-12] MEDS: ASPIRIN 81MG ENTERIC TABLET PO SCH (08:42)
[2020-12-12] MEDS: METOPROLOL SUCC *XL* 12.5MG PER 1/2 TAB (TopROL *XL*) PO SCH (08:42)
[2020-12-12] MEDS: TIMOLOL MALEATE 0.5% OPHTH SOLN 5 ML OU SCH (08:43)
[2020-12-12] MEDS: OLOPATADINE 0.1% OPHTH SOL 5ML(PATANOL) OU SCH (08:43)
[2020-12-12 12:00] VITALS: BP 138/70
--- NOTE | 2020-12-12 14:41 | DS.PDOC ---
Discharge Summary General Date of Admission Dec 10, 2020 at 23:56 Date of Discharge 12/12/20 Discharge Summary PROCEDURES PERFORMED DURING STAY: [None]. COMPLICATIONS/CHIEF COMPLAINT: Hypoglycemia. HISTORY OF PRESENT ILLNESS: This is a 70 y/o male with a pmh of cad s/p stenting, hld, htn, dm2, recently diagnosed cirrhosis of unknown etiology who presents to our ED on 12/10 after noting his sugars to be low. Patient states that he woke up at approx 4 am and noted his sugars to be low and attempted to c orrect them with food to no success. Despite continued low sugars, patient still took his daily diabetic medications of metformin and glipizide. Patients sugars continued to be low despite oral intake and thus decided to report to the ED d/t malaise, tremulousness and abd pain. Patient, at the time of my exam, tells me that he stills feels "like my sugar is low." Patient denies any syncope, chest pains, sob, n/v/d/c, pedal edema. HOSPITAL COURSE: #Hypoglycemia - Sugar upon presentation to the ED 32. Continued to dip despite d10 and multiple 1/2 amps of d50 - Likely due to maximum dose of glipizide i/s/o liver cirrhosis. - Lower suspicion of infection as source of hypoglycemia, procal ordered to rule this out. No fever, leukocytosis, other sirs criteria -I spoke to the patient's who stated that he takes Trulicity and he ended up taking glipizide the same day that he took Trulicity I suspect this was the reason for his hypoglycemia i.e. drug interaction - Holding all diabetic medications at this time.A1c 5.9. DC glipizide. -Patient's blood sugars normalized and were above 150 his D10 infusion stopped. -On the day of discharge patient tolerated regular diet for lunch very well had a piece of chocolate cake and sugars increased to 330. Patient received 5 units of Humalog prior to discharge. BG on DC 120. Given 4 jars of apple juice to go home. -I discussed with the patient's advised him not to continue taking glipizide and not to take Trulicity until her follow-up with her primary care doctor. #Hypokalemia -Replaced #hypomagnesemia -Replaced #Sinus bradycardia 2/2 1st degree AV block - HR 50s. Asymptomatic. - f/u PCP. # Liver cirrhosis - Patient states this was recently diagnosed, follows with Dr. Juarez, GI in [facility] - Does not appear to be decompensated at this time, liver enzymes wnl. #CAD - continue metoprolol, isosorbide, plavix, asa, nitro # HTN - continue amlodipine # Glaucoma - continue at home eye drops # HLD - continue atorvastatin DVT prophylaxis - pt on plavix and asa. DISCHARGE MEDICATIONS: Please see below. ALLERGIES: Please see below. PHYSICAL EXAMINATION ON DISCHARGE: VITAL SIGNS: please see below General: NAD, comfortable HEENT: PERRLA, EOMI, sclerae clear, tracheostomy in place Neck: supple, normal ROM, no JVD Respiratory: lungs CTAB, no wheeze, no rales, no crackles CVS: RRR, normal S1, S2, no murmurs Abdo: soft, no masses, no hepatosplenomegaly, BS+, no rebound tenderness Extremities: no edema, pulses 2+ MSK: no joint deformities, normal ROM Neuro: no focal neuro deficits, moving all 4 extremities, CN2-12 intact. Strength 5/5 in all 4 extremities. No nystagmus. Psych: calm, cooperative, AAO x 3 LABORATORY DATA: Please see below. PROGNOSIS: Excellent ACTIVITY: [As tolerated]. DIET: Consistent carbohydrate DISCHARGE PLAN: Discharge home. Follow-up with primary care doctor in 3 to 5 days. Do not take glipizide. Do not resume Trulicity until follow-up with PCP. Monitor sugars at home before meals. DISPOSITION: DC home DISCHARGE INSTRUCTIONS: . Please follow-up with your primary care doctor within 3-5 days . Please taking medications as prescribed. . If you develop bleeding, chest pain, shortness of breath, seizures, nausea, fevers, or otherwise worsening of your symptoms, please call 911 or return to the nearest emergency room ITEMS TO FOLLOW UP OUTPATIENT: 1. Follow-up final blood cultures DISCHARGE CONDITION: [Stable]. TIME SPENT ON DISCHARGE: 35 minutes Vital Signs/I&Os Vital Signs Date Time Temp Pulse Resp B/P (MAP) Pulse Ox O2 Delivery O2 Flow Rate FiO2 12/12/20 12:00 97.1 57 20 138/70 (92) 99 Room Air I&O- Last 24 Hours up to 6 AM 12/12/20 06:00 Intake Total 2820 ml Output Total 850 ml Balance 1970 ml Laboratory Data Labs 24H Laboratory Tests 2 12/11/20 16:20: Bedside Glucose (Misc Panel) 110 12/11/20 18:06: Bedside Glucose (Misc Panel) 135H 12/11/20 20:30: Bedside Glucose (Misc Panel) 166H 12/12/20 00:35: Bedside Glucose (Misc Panel) 151H 12/12/20 05:32: Nucleated Red Blood Cells % (auto) 0.0, Anion Gap 4L, Glomerular Filtration Rate > 60.0, Calcium Level 8.4L, Magnesium Level 2.1 12/12/20 06:26: Bedside Glucose (Misc Panel) 170H 12/12/20 12:32: Bedside Glucose (Misc Panel) 116H 12/12/20 14:02: Bedside Glucose (Misc Panel) 339H CBC/BMP Laboratory Tests 12/12/20 05:32 FSBS Laboratory Tests Test 12/11/20 16:20 12/11/20 18:06 12/11/20 20:30 12/12/20 00:35 Range/Units Bedside Glucose (Misc Panel) 110 135 166 151 83-110 MG/DL Test 12/12/20 06:26 12/12/20 12:32 12/12/20 14:02 Range/Units Bedside Glucose (Misc Panel) 170 116 339 83-110 MG/DL Microbiology Microbiology 12/11/20 Blood Culture - Preliminary, Resulted No growth after 24 hours . All specim... 12/11/20 Blood Culture - Preliminary, Resulted No growth after 24 hours . All specim... Discharge Medications Scheduled Amlodipine Besylate (Amlodipine Besylate) 10 Mg Tablet, 10 MG PO DAILY, (Reported) Aspirin (Aspirin EC) 81 Mg Tab, 81 MG PO DAILY, (Reported) Atorvastatin Calcium (Atorvastatin Calcium) 40 Mg Tab, 40 MG PO QHS, (Reported) Clopidogrel Bisulfate (Clopidogrel) 75 Mg Tablet, 75 MG PO DAILY, (Reported) Dorzolamide HCl/Timolol Maleat (Cosopt Eye Drops) 1 Ml Soln, 1 DROP OU BID, (Reported) Isosorbide Mononitrate (Isosorbide Mononitrate ER) 60 Mg Tab.er.24h, 120 MG PO DAILY, (Reported) Latanoprost/Pf (Latanoprost 0.005% Eye Drop) 7.5 Ml Drops, 1 DROP OU QHS, (Reported) Metformin HCl (Metformin HCl) 500 Mg Tab, 1,000 MG PO BID, (Reported) Metoprolol Succinate (Metoprolol Succinate) 25 Mg Tab.er.24h, 12.5 MG DAILY, (Reported) Olopatadine HCl (Olopatadine HCl) 0.1% 5ML Drops, 1 DROP OU BID, (Reported) Pantoprazole Sodium (Pantoprazole Sodium) 40 Mg Tab, 40 MG PO DAILY, (Reported) Timolol Maleate (Timolol Maleate) 0.5% 5ML Drops, 1 DROP OU BID, (Reported) Scheduled PRN Acetaminophen (Acetaminophen) 325 Mg Tablet, 325 MG PO Q4-6HP PRN for pain or fever, (Reported) Nitroglycerin (Nitroglycerin) 0.4 Mg Sub, 0.4 MG SL PRN PRN for CHEST PAIN, (Reported) Allergies Coded Allergies: Contrast Media (Verified Adverse Reaction, Intermediate, VIOLENT SNEEZING-CARDIAC CATH DYE, 11/18/20) TOMASA SHEN MD Dec 12, 2020 14:41
[2020-12-12] MEDS ORDERED: HumaLOG INSULIN (NovoLOG) PER UNIT SC ONE (15:00)
--- NOTE | 2020-12-13 08:05 | ECGEPIP ---
[facility] Test Date: 2020-12-11 Pat Name: TARSHA GARRISON Department: Room: [place] [address] Gender: Male Telephone Technician: SAL : 1950 Requested By: TOMASA SHEN Order Number: [id number] Reading MD: Richard Rivera Measurements Intervals [place] Rate: 51 P: 34 MS: 212 QRS: -40 QRSD: 102 T: 4 QT: 470 QTc: 433 Interpretive Statements Sinus bradycardia with 1st degree AV block Left axis deviation no significant change from 11/28/20 Electronically Signed on 12-13-2020 8:05:11 EDT by Richard Rivera
== END 2020-12-12 16:40 | disposition home or self-care (01) | DRG 639 ==
LOC: M ED 16:43 → M ED INP 23:56 → M PCU 12-11 03:02
PROVIDERS: ADMIT Internal Medicine; ATTEND Family Medicine
DX: E11.649 Type 2 diabetes mellitus with hypoglycemia without coma (principal); E83.42 Hypomagnesemia; E87.6 Hypokalemia; I25.10 Atherosclerotic heart disease of native coronary artery without angina pectoris; I10 Essential (primary) hypertension; H40.9 Unspecified glaucoma; Z79.82 Long term (current) use of aspirin; Z79.899 Other long term (current) drug therapy; Z91.041 Radiographic dye allergy status; Z95.2 Presence of prosthetic heart valve; K74.60 Unspecified cirrhosis of liver

== ENCOUNTER → 2021-04-26 | Outpatient (REF) | payer MEDICARE ==
[~2021-04-26] MED LIST changes: +AMLO1TAB25 PO; +APAP325T4 PO; +ISOS1TAB36 PO; +OLOP0.1D OU
[2021-04-26 18:12] LABS: C REACTIVE PROTEIN QUANTITATIV < 0.30 MG/DL (0.00-0.30); LIPASE 123 U/L (73-393)
== END ==
LOC: M LAB REF 16:36
PROVIDERS: ATTEND Registered Nurse
DX: R10.11 Right upper quadrant pain (principal); R11.0 Nausea

== ENCOUNTER 2021-06-28 11:52 | Emergency (ER) | payer MEDICARE ==
[~2021-06-28 11:52] MED LIST changes: -LEVO500T3 PO; +LEVO500T4 PO; -OLOP0.1D OU; +OLOP5DRO16 OU
[2021-06-28] MEDS ORDERED: CYCL5TAB PO (15:09)
[2021-06-28 15:25] VITALS: BP 170/79
== END 2021-06-28 15:32 | disposition home or self-care (01) ==
LOC: M ED 11:52
DX: S00.03XA Contusion of scalp, initial encounter (principal); S39.012A Strain of muscle, fascia and tendon of lower back, initial encounter; S60.221A Contusion of right hand, initial encounter; S60.222A Contusion of left hand, initial encounter; W00.0XXA Fall on same level due to ice and snow, initial encounter; Y92.9 Unspecified place or not applicable; Y93.9 Activity, unspecified; Y99.9 Unspecified external cause status; R00.1 Bradycardia, unspecified; I44.60 Unspecified fascicular block; M47.812 Spondylosis without myelopathy or radiculopathy, cervical region; I25.10 Atherosclerotic heart disease of native coronary artery without angina pectoris; E11.9 Type 2 diabetes mellitus without complications; I10 Essential (primary) hypertension; E78.5 Hyperlipidemia, unspecified; G47.33 Obstructive sleep apnea (adult) (pediatric); Z91.041 Radiographic dye allergy status; Z79.899 Other long term (current) drug therapy

== ENCOUNTER → 2021-07-01 | Outpatient (CLI) | payer MEDICARE ==
[~2021-07-01] MED LIST changes: +CYCL5TAB PO
[2021-07-01 11:11] LABS: BASO % 0.6 % (0.0-1.0); EOS # 0.2 10^3/uL (0.0-0.5); EOS % 2.2 % (0.0-3.0); HEMATOCRIT 41.5 % (42.0-52.0); HEMOGLOBIN 13.7 g/dl (13.5-17.5); LYMPH # 1.4 10^3/uL (1.5-5.0); LYMPH % 20.3 % (24.0-44.0); MEAN CORPUSCULAR HEMOGLOBIN 27.8 pg (27.0-33.0); MEAN CORPUSCULAR VOLUME 84.2 fl (80.0-96.0); MONO # 0.6 10^3/uL (0.0-0.8); MONO % 8.5 % (2.0-8.0); NEUTROPHILS # 4.6 10^3/uL (1.5-8.5); PLATELET COUNT, AUTOMATED 237 10^3/uL (150-450); RED BLOOD COUNT 4.93 10^6/uL (4.30-6.10); WHITE BLOOD COUNT 6.7 10^3/uL (4.0-10.0)
[2021-07-01 11:34] LABS: BLOOD UREA NITROGEN 21 MG/DL (7-18); CALCIUM LEVEL 8.9 MG/DL (8.8-10.2); CARBON DIOXIDE LEVEL 29 MEQ/L (21-32); CHLORIDE LEVEL 106 MEQ/L (98-107); CREATININE FOR GFR 1.15 MG/DL (0.70-1.30); GLOMERULAR FILTRATION RATE > 60.0 (>42); GLUCOSE, FASTING 180 MG/DL (70-100); POTASSIUM SERUM 3.8 MEQ/L (3.5-5.1); SODIUM LEVEL 140 MEQ/L (136-145)
== END ==
LOC: M WUC 08:29
PROVIDERS: ATTEND Internal Medicine Interventional Cardiology
DX: I35.0 Nonrheumatic aortic (valve) stenosis (principal)

== ENCOUNTER → 2021-09-21 | Outpatient (CLI) | payer MEDICARE ==
[2021-09-21 16:08] LABS: HEMATOCRIT 35.7 % (42.0-52.0); MEAN CORPUSCULAR HEMOGLOBIN 29.1 pg (27.0-33.0); MEAN CORPUSCULAR HGB CONC 33.6 g/dl (32.0-36.5); MEAN CORPUSCULAR VOLUME 86.4 fl (80.0-96.0); PLATELET COUNT, AUTOMATED 235 10^3/uL (150-450); RED BLOOD COUNT 4.13 10^6/uL (4.30-6.10); WHITE BLOOD COUNT 6.5 10^3/uL (4.0-10.0)
== END ==
LOC: M WUC 14:07
PROVIDERS: ATTEND Nurse Practitioner Family
DX: K74.60 Unspecified cirrhosis of liver (principal); K62.5 Hemorrhage of anus and rectum

== ENCOUNTER 2021-10-20 17:45 | Emergency (ER) | payer MEDICARE ==
[~2021-10-20] VITALS: Ht 175.3 cm; Wt 92.3 kg
[2021-10-20] MEDS ORDERED: NITROGLYCERIN 0.4 MG SUBL TABLET SL PRN (18:45)
[2021-10-20 18:55] LABS: BASO % 0.5 % (0.0-1.0); EOS # 0.1 10^3/uL (0.0-0.5); EOS % 1.8 % (0.0-3.0); HEMATOCRIT 33.7 % (42.0-52.0); HEMOGLOBIN 11.5 g/dl (13.5-17.5); LYMPH # 1.3 10^3/uL (1.5-5.0); LYMPH % 23.3 % (24.0-44.0); MEAN CORPUSCULAR HEMOGLOBIN 28.8 pg (27.0-33.0); MEAN CORPUSCULAR HGB CONC 34.1 g/dl (32.0-36.5); MEAN CORPUSCULAR VOLUME 84.5 fl (80.0-96.0); MONO # 0.6 10^3/uL (0.0-0.8); MONO % 10.5 % (2.0-8.0); NEUTROPHILS # 3.6 10^3/uL (1.5-8.5); NEUTROPHILS % 63.4 % (36.0-66.0); PLATELET COUNT, AUTOMATED 216 10^3/uL (150-450); RED BLOOD COUNT 3.99 10^6/uL (4.30-6.10); WHITE BLOOD COUNT 5.7 10^3/uL (4.0-10.0)
[2021-10-20 19:16] LABS: INR 1.04; PARTIAL THROMBOPLASTIN TIME 29.3 SECONDS (25.9-37.0)
[2021-10-20 19:29] LABS: CK-MB VALUE MASS 1.4 NG/ML (<3.6); MB/CK RELATIVE INDEX 1.63 (< OR =4)
[2021-10-20 19:32] LABS: ALBUMIN 3.5 GM/DL (3.2-5.2); BILIRUBIN,DIRECT 0.2 MG/DL (0.0-0.2); BILIRUBIN,TOTAL 0.8 MG/DL (0.2-1.0); CALCIUM LEVEL 9.1 MG/DL (8.8-10.2); CREATININE FOR GFR 1.48 MG/DL (0.70-1.30); GLOMERULAR FILTRATION RATE 49.7 (>42); POTASSIUM SERUM 3.8 MEQ/L (3.5-5.1); THYROID STIMULATING HORMONE 1.29 uIU/ML (0.358-3.740); TOTAL PROTEIN 6.4 GM/DL (6.4-8.2)
[2021-10-20 20:30] LABS: CK-MB VALUE MASS 1.2 NG/ML (<3.6); MB/CK RELATIVE INDEX 1.58 (< OR =4)
[2021-10-20] MEDS ORDERED: GI COCKTAIL 50ML BTL(HYOSCYAMINE/MAALOX/LIDOCAINE VISCOUS)(1:3:1) PO ONE (20:55)
[2021-10-20 22:43] LABS: CK-MB VALUE MASS < 1.0 NG/ML (<3.6); CPK CREATINE PHOSPHOKINASE 80 U/L (39-308); MB/CK RELATIVE INDEX 1.25 (< OR =4)
[2021-10-20] MEDS ORDERED: MORPHINE 2 MG/ML 1ML VIAL IV ONE (23:15)
[2021-10-21] MEDS ORDERED: HEPARIN DRIP 25,000 UNITS in IV 1 EA IV SCH ×4 (00:15)
[2021-10-21] MEDS ORDERED: HEPARIN SOD (PORCINE) 5000UNITS/ML 1ML VIAL/SYRINGE IV ONE (00:15)
[2021-10-21 00:57] LABS: HEMATOCRIT 27.2 % (42.0-52.0); MEAN CORPUSCULAR HEMOGLOBIN 28.9 pg (27.0-33.0); MEAN CORPUSCULAR HGB CONC 33.8 g/dl (32.0-36.5); MEAN CORPUSCULAR VOLUME 85.5 fl (80.0-96.0); PLATELET COUNT, AUTOMATED 177 10^3/uL (150-450); RED BLOOD COUNT 3.18 10^6/uL (4.30-6.10); WHITE BLOOD COUNT 4.1 10^3/uL (4.0-10.0)
[2021-10-21 01:08] LABS: HEMOGLOBIN 9.2 g/dl (13.5-17.5)
[2021-10-21 01:38] LABS: RSV AMPLIFICATION NEGATIVE (NEGATIVE)
[2021-10-21] MEDS: NITROGLYCERIN/D5W 100MCG/ML 25 MG in IV 1 EA IV SCH ×2 (02:04→19:38)
[2021-10-21 08:36] LABS: BASO % 0.6 % (0.0-1.0); EOS # 0.2 10^3/uL (0.0-0.5); EOS % 2.1 % (0.0-3.0); HEMATOCRIT 34.7 % (42.0-52.0); INR 1.06; LYMPH # 1.3 10^3/uL (1.5-5.0); LYMPH % 17.9 % (24.0-44.0); MEAN CORPUSCULAR HEMOGLOBIN 29.2 pg (27.0-33.0); MEAN CORPUSCULAR HGB CONC 34.3 g/dl (32.0-36.5); MONO # 0.7 10^3/uL (0.0-0.8); MONO % 9.5 % (2.0-8.0); NEUTROPHILS # 4.9 10^3/uL (1.5-8.5); NEUTROPHILS % 69.6 % (36.0-66.0); PLATELET COUNT, AUTOMATED 195 10^3/uL (150-450); PROTHROMBIN TIME 14.2 SECONDS (12.7-14.5); RED BLOOD COUNT 4.08 10^6/uL (4.30-6.10); WHITE BLOOD COUNT 7.1 10^3/uL (4.0-10.0)
[2021-10-21 08:38] LABS: HEMOGLOBIN 11.9 g/dl (13.5-17.5); PARTIAL THROMBOPLASTIN TIME 67.2 SECONDS (25.9-37.0)
[2021-10-21 08:52] LABS: MB/CK RELATIVE INDEX 1.52 (< OR =4)
[2021-10-21] MEDS ORDERED: AMLO1TAB24 (13:17)
[2021-10-21] MEDS ORDERED: ASPIRIN 81 MG CHEW TABLET PO SCH (14:00)
[2021-10-21 15:42] LABS: INR 1.09; PROTHROMBIN TIME 14.5 SECONDS (12.7-14.5)
[2021-10-21 15:43] LABS: PARTIAL THROMBOPLASTIN TIME 80.4 SECONDS (25.9-37.0)
[2021-10-21] MEDS ORDERED: PANTOPRAZOLE 40MG TAB (PROTONIX) PO ONE (18:00)
[2021-10-21 18:34] VITALS: BP 148/71
[2021-10-21] MEDS ORDERED: METOPROLOL SUCC *XL* 25MG TAB (TopROL *XL*) PO SCH (21:00)
[2021-10-21] MEDS ORDERED: ATORVASTATIN 20 MG TAB PO SCH (21:00)
[2021-10-21 21:12] VITALS: BP 140/70
[2021-10-22] MEDS ORDERED: PANTOPRAZOLE 40MG TAB (PROTONIX) PO SCH (09:00)
== END 2021-10-21 21:14 | disposition short-term general hospital (02) ==
LOC: M ED 17:45
DX: I25.110 Atherosclerotic heart disease of native coronary artery with unstable angina pectoris (principal); I25.2 Old myocardial infarction; E11.9 Type 2 diabetes mellitus without complications; G47.33 Obstructive sleep apnea (adult) (pediatric); Z79.01 Long term (current) use of anticoagulants; Z79.899 Other long term (current) drug therapy; Z79.84 Long term (current) use of oral hypoglycemic drugs; Z79.82 Long term (current) use of aspirin; Z91.041 Radiographic dye allergy status; Z95.1 Presence of aortocoronary bypass graft; Z98.890 Other specified postprocedural states; Z93.0 Tracheostomy status; Z87.19 Personal history of other diseases of the digestive system
CPT/HCPCS: 71045; 80048; 80076; 82550; 82553; 83690; 83880; 84443; 84484; 85025; 85027; 85610; 85730; 87631; 93005; 93041; 93306; 94760; 96374; 96375; 96376; 99285; J1644; J2270

== ENCOUNTER → 2021-10-31 | Outpatient (CLI) | payer MEDICARE ==
[~2021-10-31] MED LIST changes: +AMLO1TAB24
== END ==
LOC: M WUC 08:34
PROVIDERS: ATTEND Physician Assistant Medical
DX: M25.551 Pain in right hip (principal)

== ENCOUNTER → 2022-01-12 | Outpatient (CLI) | payer MEDICARE ==
[~2022-01-12] MED LIST changes: +LEVO1TAB39 PO; -LEVO500T4 PO
== END ==
LOC: M PLAIMG 07:30
PROVIDERS: ATTEND Physician Assistant Surgical
DX: M16.11 Unilateral primary osteoarthritis, right hip (principal); M25.751 Osteophyte, right hip; M25.752 Osteophyte, left hip; M16.0 Bilateral primary osteoarthritis of hip

== ENCOUNTER 2022-01-19 11:44 | Emergency (ER) | payer MEDICARE ==
[~2022-01-19] VITALS: Ht 172.7 cm; Wt 91.8 kg
[2022-01-19 12:28] LABS: BASO % 0.5 % (0.0-1.0); EOS # 0.1 10^3/uL (0.0-0.5); EOS % 1.1 % (0.0-3.0); HEMATOCRIT 42.1 % (42.0-52.0); HEMOGLOBIN 14.1 g/dl (13.5-17.5); LYMPH # 1.2 10^3/uL (1.5-5.0); LYMPH % 14.1 % (24.0-44.0); MEAN CORPUSCULAR HEMOGLOBIN 27.8 pg (27.0-33.0); MEAN CORPUSCULAR HGB CONC 33.5 g/dl (32.0-36.5); MONO # 0.9 10^3/uL (0.0-0.8); NEUTROPHILS % 72.9 % (36.0-66.0); PLATELET COUNT, AUTOMATED 247 10^3/uL (150-450); RED BLOOD COUNT 5.07 10^6/uL (4.30-6.10); WHITE BLOOD COUNT 8.2 10^3/uL (4.0-10.0)
[2022-01-19 12:48] LABS: INR 0.94
[2022-01-19 12:49] LABS: PARTIAL THROMBOPLASTIN TIME 28.2 SECONDS (25.9-37.0)
[2022-01-19 13:16] LABS: CK-MB VALUE MASS 1.1 NG/ML (<3.6); MB/CK RELATIVE INDEX 1.62 (< OR =4)
[2022-01-19 13:23] LABS: ALT/SGPT 22 U/L (12-78); BILIRUBIN,DIRECT 0.3 MG/DL (0.0-0.2); BILIRUBIN,TOTAL 1.3 MG/DL (0.2-1.0); BLOOD UREA NITROGEN 18 MG/DL (7-18); CALCIUM LEVEL 9.6 MG/DL (8.8-10.2); CARBON DIOXIDE LEVEL 29 MEQ/L (21-32); CHLORIDE LEVEL 105 MEQ/L (98-107); CREATININE FOR GFR 0.92 MG/DL (0.70-1.30); FREE T4 1.13 NG/DL (0.76-1.46); GLOMERULAR FILTRATION RATE > 60.0 (>42); GLUCOSE, FASTING 105 MG/DL (70-100); LIPASE 262 U/L (73-393); NT-PRO BNP 669 PG/ML (<125); POTASSIUM SERUM 4.3 MEQ/L (3.5-5.1); SODIUM LEVEL 136 MEQ/L (136-145); TOTAL PROTEIN 7.6 GM/DL (6.4-8.2)
[2022-01-19 14:14] LABS: CK-MB VALUE MASS < 1.0 NG/ML (<3.6); CPK CREATINE PHOSPHOKINASE 55 U/L (39-308); MB/CK RELATIVE INDEX 1.82 (< OR =4)
[2022-01-19 14:31] VITALS: BP 178/81
[2022-01-19] MEDS ORDERED: HYDR-3490 PO (14:52)
[2022-01-19] MEDS ORDERED: RANO500T2 PO (14:52)
[2022-01-19] MEDS ORDERED: ISOS1TAB36 PO (15:03)
[2022-01-19] MEDS ORDERED: ISOS120T7 PO (15:05)
[2022-01-19] MEDS ORDERED: AZIT-12 PO (15:08)
== END 2022-01-19 15:49 | disposition home or self-care (01) ==
LOC: M ED 11:44
DX: R07.89 Other chest pain (principal); R00.1 Bradycardia, unspecified; I25.10 Atherosclerotic heart disease of native coronary artery without angina pectoris; I25.2 Old myocardial infarction; E11.9 Type 2 diabetes mellitus without complications; Z87.19 Personal history of other diseases of the digestive system; K75.81 Nonalcoholic steatohepatitis (NASH); Z95.5 Presence of coronary angioplasty implant and graft; Z98.61 Coronary angioplasty status; Z79.82 Long term (current) use of aspirin; Z79.4 Long term (current) use of insulin; Z79.899 Other long term (current) drug therapy; Z91.041 Radiographic dye allergy status

== ENCOUNTER → 2022-03-20 | Outpatient (CLI) | payer MEDICARE ==
[~2022-03-20] MED LIST changes: +AZIT-12 PO; +RANO500T2 PO
[2022-03-20 18:35] LABS: CARBON DIOXIDE LEVEL 26 MMOL/L (20-31); CHLORIDE LEVEL 104 MMOL/L (98-107); SODIUM LEVEL 140 MMOL/L (136-145)
[2022-03-20 18:39] LABS: BLOOD UREA NITROGEN 19 MG/DL (9-23)
[2022-03-20 18:41] LABS: GLUCOSE, FASTING 216 MG/DL (74-106)
[2022-03-20 18:42] LABS: CALCIUM LEVEL 9.1 MG/DL (8.3-10.6)
[2022-03-20 18:44] LABS: CREATININE FOR GFR 0.86 MG/DL (0.70-1.30); GLOMERULAR FILTRATION RATE > 60.0 (>42)
[2022-03-20 18:47] LABS: POTASSIUM SERUM 4.8 MMOL/L (3.5-5.1)
== END ==
LOC: M WUC 10:53
PROVIDERS: ATTEND Psychiatry & Neurology Psychiatry
DX: I35.9 Nonrheumatic aortic valve disorder, unspecified (principal)

== ENCOUNTER 2023-04-06 13:10 | Emergency (ER) | payer MEDICARE ==
[~2023-04-06] VITALS: Ht 172.7 cm; Wt 91.3 kg
[~2023-04-06 13:10] MED LIST changes: -COSO1SOL3 OU; +DORZ10DR10 OU; -OLOP5DRO16 OU; +OLOP5DRO17 OU; +TIMO0.5S20; +TIMO0.5S20 OU; -TIMO0.5S29; -TIMO0.5S29 OU
[2023-04-06] MEDS ORDERED: SUCRALFATE 1 GM TAB PO ONE (13:45)
[2023-04-06] MEDS ORDERED: MAALOX 30 ML SUSP *UDC PO ONE (13:45)
[2023-04-06] MEDS: MORPHINE 4 MG/ML 1ML VIAL IV PRN ×2 (13:48→14:34)
[2023-04-06 13:49] LABS: BASO # 0.1 10^3/uL (0.0-0.2); BASO % 0.6 % (0.0-1.0); EOS # 0.1 10^3/uL (0.0-0.5); EOS % 0.8 % (0.0-3.0); HEMOGLOBIN 12.8 g/dl (13.5-17.5); LYMPH # 1.5 10^3/uL (1.5-5.0); LYMPH % 17.5 % (24.0-44.0); MEAN CORPUSCULAR HEMOGLOBIN 27.8 pg (27.0-33.0); MEAN CORPUSCULAR HGB CONC 32.8 g/dl (32.0-36.5); MEAN CORPUSCULAR VOLUME 84.8 fl (80.0-96.0); MONO # 0.7 10^3/uL (0.0-0.8); MONO % 7.8 % (2.0-8.0); NEUTROPHILS # 6.1 10^3/uL (1.5-8.5); NEUTROPHILS % 72.9 % (36.0-66.0); PLATELET COUNT, AUTOMATED 246 10^3/uL (150-450); WHITE BLOOD COUNT 8.3 10^3/uL (4.0-10.0)
[2023-04-06 14:05] LABS: CK-MB VALUE MASS 1.1 NG/ML (<3.6); LIPASE 33 U/L (12-53)
[2023-04-06 14:08] LABS: ALBUMIN 3.5 G/DL (3.2-5.2); ALKALINE PHOSPHATASE 57 U/L (46-116); ALT/SGPT 25 U/L (7.0-40); AST/SGOT 22 U/L (<34); BILIRUBIN,DIRECT 0.2 MG/DL (<0.4); BILIRUBIN,TOTAL 0.7 MG/DL (0.3-1.2); BLOOD UREA NITROGEN 18 MG/DL (9-23); CALCIUM LEVEL 9.5 MG/DL (8.3-10.6); CARBON DIOXIDE LEVEL 25 MMOL/L (20-31); CHLORIDE LEVEL 108 MMOL/L (98-107); CREATININE FOR GFR 0.73 MG/DL (0.70-1.30); GLOMERULAR FILTRATION RATE > 60.0 (>42); GLUCOSE, FASTING 126 MG/DL (74-106); POTASSIUM SERUM 4.4 MMOL/L (3.5-5.1); SODIUM LEVEL 140 MMOL/L (136-145); TOTAL PROTEIN 6.4 G/DL (5.7-8.2)
[2023-04-06 14:10] LABS: FREE T4 1.06 NG/DL (0.89-1.76)
[2023-04-06 14:26] LABS: CPK CREATINE PHOSPHOKINASE 48 U/L (46-171); MB/CK RELATIVE INDEX 2.29 (< OR =4)
[2023-04-06 14:39] LABS: INR 1.06; PROTHROMBIN TIME 13.5 SECONDS (12.5-14.5)
[2023-04-06 14:40] LABS: PARTIAL THROMBOPLASTIN TIME 27.9 SECONDS (24.8-34.2)
[2023-04-06 14:55] LABS: D-DIMER QUANT 0.81 ug/mL (<0.5)
[2023-04-06] MEDS ORDERED: diphenhydrAMINE 50MG/ML VIAL IV STA (15:03)
[2023-04-06] MEDS ORDERED: methylPREDNISolone 125MG 2ML VIAL IV ONE (15:05)
[2023-04-06 15:23] LABS: CK-MB VALUE MASS < 1.0 NG/ML (<3.6)
[2023-04-06 15:29] LABS: CPK CREATINE PHOSPHOKINASE 44 U/L (46-171); MB/CK RELATIVE INDEX 2.27 (< OR =4)
[2023-04-06] MEDS ORDERED: ISOVUE-370 76% 100ML VIAL As Ordered ONE (15:30)
[2023-04-06 17:25] LABS: CK-MB VALUE MASS < 1.0 NG/ML (<3.6)
[2023-04-06 17:26] LABS: CPK CREATINE PHOSPHOKINASE 42 U/L (46-171); MB/CK RELATIVE INDEX 2.38 (< OR =4)
[2023-04-06] MEDS ORDERED: MORPHINE 4 MG/ML 1ML VIAL IV ONE (17:45)
[2023-04-06] MEDS ORDERED: HEPARIN SOD (PORCINE) 5000UNITS/ML 1ML VIAL/SYRINGE IV ONE (18:10)
[2023-04-06] MEDS ORDERED: NITROGLYCERIN/D5W 100MCG/ML 25 MG in IV 1 EA IV SCH (18:10)
[2023-04-06] MEDS ORDERED: HEPARIN DRIP 25,000 UNITS in IV 1 EA IV SCH (18:10)
[2023-04-06 19:05] VITALS: BP 179/76; TEMP 98.2; O2SAT 97
== END 2023-04-06 19:10 | disposition short-term general hospital (02) ==
LOC: M ED 13:10 → EDBD 13:10 → M ED 19:10
DX: I20.0 Unstable angina (principal); R00.1 Bradycardia, unspecified; I49.1 Atrial premature depolarization; I44.4 Left anterior fascicular block; I25.2 Old myocardial infarction; K21.9 Gastro-esophageal reflux disease without esophagitis; I10 Essential (primary) hypertension; E78.5 Hyperlipidemia, unspecified; F41.9 Anxiety disorder, unspecified; Z86.79 Personal history of other diseases of the circulatory system; Z91.041 Radiographic dye allergy status; Z79.02 Long term (current) use of antithrombotics/antiplatelets; Z79.4 Long term (current) use of insulin; Z79.899 Other long term (current) drug therapy
CPT/HCPCS: 71045; 71275; 80048; 80076; 82550; 82553; 83690; 83880; 84439; 84443; 84484; 85025; 85379; 85610; 85730; 93005; 93041; 94760; 96374; 96375; 96376; 99285; J1200; J2930; Q9967

== ENCOUNTER 2023-04-09 18:18 | Emergency (ER) | payer MEDICARE ==
[~2023-04-09] VITALS: Ht 175.3 cm; Wt 88.4 kg
[2023-04-09 18:47] LABS: BASO % 0.1 % (0.0-1.0); EOS % 0.1 % (0.0-3.0); HEMATOCRIT 35.7 % (42.0-52.0); HEMOGLOBIN 11.9 g/dl (13.5-17.5); LYMPH % 12.3 % (24.0-44.0); MEAN CORPUSCULAR HEMOGLOBIN 28.1 pg (27.0-33.0); MEAN CORPUSCULAR HGB CONC 33.3 g/dl (32.0-36.5); MEAN CORPUSCULAR VOLUME 84.2 fl (80.0-96.0); MONO # 1.3 10^3/uL (0.0-0.8); MONO % 8.2 % (2.0-8.0); NEUTROPHILS # 12.6 10^3/uL (1.5-8.5); NEUTROPHILS % 78.9 % (36.0-66.0); PLATELET COUNT, AUTOMATED 275 10^3/uL (150-450); RED BLOOD COUNT 4.24 10^6/uL (4.30-6.10)
[2023-04-09] MEDS: MORPHINE 4 MG/ML 1ML VIAL IV PRN ×2 (18:53→19:35)
[2023-04-09 19:01] LABS: INR 1.09; PARTIAL THROMBOPLASTIN TIME 22.4 SECONDS (24.8-34.2); PROTHROMBIN TIME 13.8 SECONDS (12.5-14.5)
[2023-04-09 19:09] LABS: ALBUMIN 3.7 G/DL (3.2-5.2); ALKALINE PHOSPHATASE 55 U/L (46-116); ALT/SGPT 26 U/L (7.0-40); AST/SGOT 19 U/L (<34); BILIRUBIN,DIRECT 0.4 MG/DL (<0.4); BLOOD UREA NITROGEN 31 MG/DL (9-23); CALCIUM LEVEL 8.9 MG/DL (8.3-10.6); CARBON DIOXIDE LEVEL 23 MMOL/L (20-31); CHLORIDE LEVEL 106 MMOL/L (98-107); CREATININE FOR GFR 0.96 MG/DL (0.70-1.30); GLOMERULAR FILTRATION RATE > 60.0 (>42); GLUCOSE, FASTING 181 MG/DL (74-106); POTASSIUM SERUM 4.3 MMOL/L (3.5-5.1); SODIUM LEVEL 137 MMOL/L (136-145); TOTAL PROTEIN 6.5 G/DL (5.7-8.2)
[2023-04-09] MEDS ORDERED: NS 1,000 ML IV ONE (19:15)
[2023-04-09 19:39] LABS: RSV AMPLIFICATION NEGATIVE (NEGATIVE)
[2023-04-09 20:04] VITALS: BP 139/59; TEMP 99.4; O2SAT 99
[2023-04-09 20:20] VITALS: BP 115/58; TEMP 99.1; O2SAT 99
[2023-04-09 20:50] VITALS: BP 124/59; TEMP 98.9; O2SAT 98
[2023-04-09] MEDS ORDERED: MORPHINE 4 MG/ML 1ML VIAL IV ONE (21:15)
[2023-04-09 21:27] VITALS: BP 155/72; TEMP 98.6; O2SAT 99
[2023-04-09 21:28] VITALS: BP 155/72; TEMP 98.6; O2SAT 99
== END 2023-04-09 21:35 | disposition short-term general hospital (02) ==
LOC: M ED 18:18
DX: K40.90 Unilateral inguinal hernia, without obstruction or gangrene, not specified as recurrent (principal); D64.9 Anemia, unspecified; R00.1 Bradycardia, unspecified; I44.4 Left anterior fascicular block; I10 Essential (primary) hypertension; E11.9 Type 2 diabetes mellitus without complications; I25.2 Old myocardial infarction; Z86.79 Personal history of other diseases of the circulatory system; Z79.84 Long term (current) use of oral hypoglycemic drugs; Z79.02 Long term (current) use of antithrombotics/antiplatelets; Z79.82 Long term (current) use of aspirin; Z79.4 Long term (current) use of insulin; Z79.899 Other long term (current) drug therapy; Z91.041 Radiographic dye allergy status; Z88.8 Allergy status to other drugs, medicaments and biological substances; Z79.01 Long term (current) use of anticoagulants
CPT/HCPCS: 36430; 74176; 76882; 80047; 80048; 80076; 85025; 85610; 85730; 86850; 86900; 86901; 86920; 87631; 93005; 93041; 96374; 96376; 99285; P9016

== ENCOUNTER 2023-04-20 09:03 | Emergency (ER) | payer MEDICARE ==
[~2023-04-20] VITALS: Ht 175.3 cm; Wt 89.9 kg
[2023-04-20 09:05] VITALS: TEMP 96.8
[2023-04-20] MEDS ORDERED: diphenhydrAMINE 50MG/ML VIAL IV STA (09:37)
[2023-04-20] MEDS ORDERED: dexAMETHasone 20MG/5ML VIAL IV ONE (09:40)
[2023-04-20 10:14] LABS: BASO % 0.5 % (0.0-1.0); EOS # 0.1 10^3/uL (0.0-0.5); EOS % 1.4 % (0.0-3.0); LYMPH # 0.9 10^3/uL (1.5-5.0); LYMPH % 11.2 % (24.0-44.0); MEAN CORPUSCULAR HEMOGLOBIN 28.8 pg (27.0-33.0); MEAN CORPUSCULAR HGB CONC 32.1 g/dl (32.0-36.5); MEAN CORPUSCULAR VOLUME 89.7 fl (80.0-96.0); MONO # 0.6 10^3/uL (0.0-0.8); MONO % 7.3 % (2.0-8.0); NEUTROPHILS # 6.6 10^3/uL (1.5-8.5); PLATELET COUNT, AUTOMATED 261 10^3/uL (150-450); RED BLOOD COUNT 3.12 10^6/uL (4.30-6.10); WHITE BLOOD COUNT 8.3 10^3/uL (4.0-10.0)
[2023-04-20 10:27] LABS: INR 1.14; PROTHROMBIN TIME 14.2 SECONDS (12.5-14.5)
[2023-04-20 10:28] LABS: PARTIAL THROMBOPLASTIN TIME 27.1 SECONDS (24.8-34.2)
[2023-04-20 10:38] LABS: LIPASE 44 U/L (12-53)
[2023-04-20] MEDS ORDERED: ISOVUE-370 76% 100ML VIAL As Ordered ONE (10:39)
[2023-04-20 10:45] LABS: ALBUMIN 3.2 G/DL (3.2-5.2); ALKALINE PHOSPHATASE 78 U/L (46-116); ALT/SGPT 35 U/L (7.0-40); AST/SGOT 19 U/L (<34); BILIRUBIN,DIRECT 0.3 MG/DL (<0.4); BILIRUBIN,TOTAL 0.9 MG/DL (0.3-1.2); BLOOD UREA NITROGEN 15 MG/DL (9-23); CALCIUM LEVEL 8.7 MG/DL (8.3-10.6); CARBON DIOXIDE LEVEL 24 MMOL/L (20-31); CHLORIDE LEVEL 110 MMOL/L (98-107); CREATININE FOR GFR 0.76 MG/DL (0.70-1.30); GLOMERULAR FILTRATION RATE > 60.0 (>42); GLUCOSE, FASTING 134 MG/DL (74-106); POTASSIUM SERUM 4.4 MMOL/L (3.5-5.1); SODIUM LEVEL 142 MMOL/L (136-145); TOTAL PROTEIN 6.2 G/DL (5.7-8.2)
[2023-04-20 14:30] VITALS: O2SAT 98
[2023-04-20 14:32] VITALS: BP 170/67
== END 2023-04-20 14:44 | disposition home or self-care (01) ==
LOC: M ED 09:03
DX: I72.4 Aneurysm of artery of lower extremity (principal); I11.9 Hypertensive heart disease without heart failure; E11.9 Type 2 diabetes mellitus without complications; E78.5 Hyperlipidemia, unspecified; G47.33 Obstructive sleep apnea (adult) (pediatric); K22.70 Barrett's esophagus without dysplasia; K75.81 Nonalcoholic steatohepatitis (NASH); Z95.5 Presence of coronary angioplasty implant and graft; Z91.041 Radiographic dye allergy status; Z88.8 Allergy status to other drugs, medicaments and biological substances; Z79.899 Other long term (current) drug therapy; Z79.84 Long term (current) use of oral hypoglycemic drugs; Z79.82 Long term (current) use of aspirin
CPT/HCPCS: 31502; 75635; 80047; 80048; 80076; 83690; 85025; 85610; 85730; 86850; 86900; 86901; 93005; 93041; 93926; 96374; 96375; 99285; G0463; J1100; J1200; Q9967

== ENCOUNTER → 2023-06-20 | Outpatient (CLI) | payer MEDICARE ==
[~2023-06-20] MED LIST changes: +IRBE150T27 PO; -IRBE150T7 PO; +IRBE75TA11; -IRBE75TA4
[2023-06-20 09:46] LABS: BASO % 0.7 % (0.0-1.0); EOS # 0.1 10^3/uL (0.0-0.5); EOS % 2.2 % (0.0-3.0); HEMATOCRIT 38.1 % (42.0-52.0); HEMOGLOBIN 12.5 g/dl (13.5-17.5); LYMPH % 18.7 % (24.0-44.0); MEAN CORPUSCULAR HEMOGLOBIN 27.2 pg (27.0-33.0); MEAN CORPUSCULAR HGB CONC 32.8 g/dl (32.0-36.5); MONO # 0.6 10^3/uL (0.0-0.8); MONO % 10.3 % (2.0-8.0); NEUTROPHILS # 3.6 10^3/uL (1.5-8.5); NEUTROPHILS % 67.7 % (36.0-66.0); PLATELET COUNT, AUTOMATED 206 10^3/uL (150-450); RED BLOOD COUNT 4.59 10^6/uL (4.30-6.10); WHITE BLOOD COUNT 5.3 10^3/uL (4.0-10.0)
[2023-06-20 10:18] LABS: IRON (FE) 49 UG/DL (65-175); PERCENT SATURATION 18.7 % (19.7-50.0); TOTAL IRON BINDING CAPACITY 262 UG/DL (250-425)
[2023-06-20 10:20] LABS: ALBUMIN 3.5 G/DL (3.2-5.2); ALKALINE PHOSPHATASE 67 U/L (46-116); ALT/SGPT 14 U/L (7.0-40); AST/SGOT 12 U/L (<34); BILIRUBIN,TOTAL 0.6 MG/DL (0.3-1.2); BLOOD UREA NITROGEN 19 MG/DL (9-23); CALCIUM LEVEL 9.1 MG/DL (8.3-10.6); CARBON DIOXIDE LEVEL 26 MMOL/L (20-31); CHLORIDE LEVEL 109 MMOL/L (98-107); FERRITIN 70.2 NG/ML (10.5-307.3); GLOMERULAR FILTRATION RATE > 60.0 (>42); GLUCOSE, FASTING 120 MG/DL (74-106); POTASSIUM SERUM 4.5 MMOL/L (3.5-5.1); SODIUM LEVEL 142 MMOL/L (136-145); TOTAL PROTEIN 6.5 G/DL (5.7-8.2)
== END ==
LOC: M WUC 08:10
PROVIDERS: ATTEND Internal Medicine Cardiovascular Disease
DX: D62 Acute posthemorrhagic anemia (principal)

== ENCOUNTER 2023-12-11 01:50 | Emergency (ER) | payer MEDICARE ==
[~2023-12-11] VITALS: Ht 175.3 cm; Wt 76.9 kg
[2023-12-11 01:50] VITALS: TEMP 98
[2023-12-11 02:30] LABS: BASO # 0.1 10^3/uL (0.0-0.2); BASO % 0.6 % (0.0-1.0); EOS # 0.1 10^3/uL (0.0-0.5); EOS % 1.2 % (0.0-3.0); HEMOGLOBIN 12.3 g/dl (13.5-17.5); LYMPH # 1.1 10^3/uL (1.5-5.0); LYMPH % 13.1 % (24.0-44.0); MEAN CORPUSCULAR HEMOGLOBIN 28.5 pg (27.0-33.0); MEAN CORPUSCULAR HGB CONC 33.2 g/dl (32.0-36.5); MEAN CORPUSCULAR VOLUME 85.6 fl (80.0-96.0); MONO # 0.6 10^3/uL (0.0-0.8); MONO % 7.6 % (2.0-8.0); NEUTROPHILS # 6.2 10^3/uL (1.5-8.5); NEUTROPHILS % 77.1 % (36.0-66.0); PLATELET COUNT, AUTOMATED 178 10^3/uL (150-450); RED BLOOD COUNT 4.32 10^6/uL (4.30-6.10)
[2023-12-11 03:02] LABS: CPK CREATINE PHOSPHOKINASE 43 U/L (46-171)
[2023-12-11 04:19] LABS: BLOOD UREA NITROGEN 22 MG/DL (9-23); CALCIUM LEVEL 8.9 MG/DL (8.3-10.6); CARBON DIOXIDE LEVEL 22 MMOL/L (20-31); CHLORIDE LEVEL 112 MMOL/L (98-107); CK-MB VALUE MASS 2.1 NG/ML (<3.6); CREATININE FOR GFR 0.96 MG/DL (0.70-1.30); GLOMERULAR FILTRATION RATE > 60.0 (>42); GLUCOSE, FASTING 114 MG/DL (74-106); MB/CK RELATIVE INDEX 4.88 (< OR =4); POTASSIUM SERUM 3.6 MMOL/L (3.5-5.1); SODIUM LEVEL 141 MMOL/L (136-145)
[2023-12-11 05:49] LABS: CK-MB VALUE MASS 2.1 NG/ML (<3.6)
[2023-12-11 05:53] LABS: MB/CK RELATIVE INDEX 4.03 (< OR =4)
[2023-12-11] MEDS: ASPIRIN 81MG CHEW TABLET PO ONE (09:10)
[2023-12-11 10:04] LABS: INR 1.19; PARTIAL THROMBOPLASTIN TIME 28.4 SECONDS (24.8-34.2); PROTHROMBIN TIME 14.7 SECONDS (12.5-14.5)
[2023-12-11] MEDS ORDERED: HEPARIN SOD (PORCINE) 5000UNITS/ML 1ML VIAL/SYRINGE IV PRN (11:00)
[2023-12-11] MEDS: CLOPIDOGREL 75 MG TAB PO ONE (11:00)
[2023-12-11] MEDS: ISOSORBIDE MON. (IMDUR) 60MG XR TAB PO ONE (11:23)
[2023-12-11] MEDS: HEPARIN DRIP 25,000 UNITS in IV 1 EA IV SCH (11:23)
[2023-12-11] MEDS: HEPARIN SOD (PORCINE) 5000UNITS/ML 1ML VIAL/SYRINGE IV ONE (11:24)
[2023-12-11] MEDS: NITROGLYCERIN 0.4MG SUBL TABLET SL PRN (11:25)
[2023-12-11 11:39] VITALS: BP 180/79
[2023-12-11] MEDS: MORPHINE 2 MG/ML 1ML VIAL IV ONE (12:44)
[2023-12-11 12:47] VITALS: BP 190/78
[2023-12-11 13:03] VITALS: O2SAT 99
== END 2023-12-11 13:06 | disposition short-term general hospital (02) ==
LOC: M ED 01:50
DX: I20.0 Unstable angina (principal); I25.10 Atherosclerotic heart disease of native coronary artery without angina pectoris; I50.9 Heart failure, unspecified; I10 Essential (primary) hypertension; E78.5 Hyperlipidemia, unspecified; D50.9 Iron deficiency anemia, unspecified; G47.33 Obstructive sleep apnea (adult) (pediatric); K75.81 Nonalcoholic steatohepatitis (NASH); K22.70 Barrett's esophagus without dysplasia; Z98.61 Coronary angioplasty status; Z79.82 Long term (current) use of aspirin; Z79.84 Long term (current) use of oral hypoglycemic drugs; Z79.899 Other long term (current) drug therapy; Z88.8 Allergy status to other drugs, medicaments and biological substances; Z91.041 Radiographic dye allergy status

== ENCOUNTER → 2024-01-23 | Outpatient (REF) | payer MEDICARE ==
[2024-01-23 11:52] LABS: INR 1.13; PROTHROMBIN TIME 14.1 SECONDS (12.5-14.5)
== END ==
LOC: M LAB REF 11:35
PROVIDERS: ATTEND Physician Assistant Medical
DX: K74.60 Unspecified cirrhosis of liver (principal)

== ENCOUNTER → 2024-08-27 | Outpatient (CLI) | payer MEDICARE ==
[~2024-08-27] MED LIST changes: -CYCL5TAB PO; +CYCL5TAB4 PO; +GLIP-320 PO; -GLIP10TA18 PO
[2024-08-27 13:11] LABS: ALBUMIN 3.8 G/DL (3.2-5.2); BILIRUBIN,TOTAL 0.7 MG/DL (0.3-1.2); CALCIUM LEVEL 9.7 MG/DL (8.3-10.6); CREATININE FOR GFR 1.28 MG/DL (0.70-1.30); GLOMERULAR FILTRATION RATE 58.7 (>42); PERCENT SATURATION 24.7 % (19.7-50.0); POTASSIUM SERUM 3.2 MMOL/L (3.5-5.1); TOTAL PROTEIN 7.2 G/DL (5.7-8.2)
[2024-08-27 13:12] LABS: FERRITIN 168.2 NG/ML (10.5-307.3); THYROID STIMULATING HORMONE 1.134 uIU/ML (0.55-4.78)
[2024-08-27 13:13] LABS: BASO % 0.7 % (0.0-1.0); EOS # 0.1 10^3/uL (0.0-0.5); EOS % 1.3 % (0.0-3.0); HEMATOCRIT 34.6 % (42.0-52.0); HEMOGLOBIN 11.8 g/dl (13.5-17.5); LYMPH # 1.1 10^3/uL (1.5-5.0); LYMPH % 20.4 % (24.0-44.0); MEAN CORPUSCULAR HEMOGLOBIN 28.5 pg (27.0-33.0); MEAN CORPUSCULAR HGB CONC 34.1 g/dl (32.0-36.5); MEAN CORPUSCULAR VOLUME 83.6 fl (80.0-96.0); MONO # 0.5 10^3/uL (0.0-0.8); MONO % 8.5 % (2.0-8.0); NEUTROPHILS # 3.8 10^3/uL (1.5-8.5); NEUTROPHILS % 68.4 % (36.0-66.0); PLATELET COUNT, AUTOMATED 239 10^3/uL (150-450); RED BLOOD COUNT 4.14 10^6/uL (4.30-6.10); TOTAL 25(OH) VITAMIN D 31.4 NG/ML (20.0-100.0); WHITE BLOOD COUNT 5.5 10^3/uL (4.0-10.0)
[2024-08-27 13:14] LABS: FREE T4 1.3 NG/DL (0.89-1.76)
== END ==
LOC: M WUC 09:15
PROVIDERS: ATTEND Nurse Practitioner Family
DX: I50.33 Acute on chronic diastolic (congestive) heart failure (principal); D50.9 Iron deficiency anemia, unspecified; Z13.29 Encounter for screening for other suspected endocrine disorder; E55.9 Vitamin D deficiency, unspecified; Z93.0 Tracheostomy status

== ENCOUNTER → 2025-02-04 | Outpatient (CLI) | payer MEDICARE ==
[2025-02-04 12:44] LABS: BASO # 0.1 10^3/uL (0.0-0.2); BASO % 0.7 % (0.0-1.0); EOS # 0.1 10^3/uL (0.0-0.5); EOS % 2.1 % (0.0-3.0); LYMPH # 1.5 10^3/uL (1.5-5.0); LYMPH % 22.9 % (24.0-44.0); MONO # 0.6 10^3/uL (0.0-0.8); MONO % 9.0 % (2.0-8.0); NEUTROPHILS # 4.3 10^3/uL (1.5-8.5); NEUTROPHILS % 65.0 % (36.0-66.0); PLATELET COUNT, AUTOMATED 219 10^3/uL (150-450)
[2025-02-04 12:49] LABS: CALCIUM LEVEL 9.3 MG/DL (8.3-10.6); CARBON DIOXIDE LEVEL 31.0 MMOL/L (20-31); CHLORIDE LEVEL 103.0 MMOL/L (98-107); CREATININE FOR GFR 1.52 MG/DL (0.70-1.30); GLOMERULAR FILTRATION RATE 47.5 (>42); POTASSIUM SERUM 4.0 MMOL/L (3.5-5.1); SODIUM LEVEL 143.0 MMOL/L (136-145)
== END ==
LOC: M WUC 08:03
PROVIDERS: ATTEND Nurse Practitioner Family
DX: I20.9 Angina pectoris, unspecified (principal)

== ENCOUNTER 2025-02-11 15:51 | Emergency (ER) | payer MEDICARE ==
[~2025-02-11] VITALS: Ht 172.7 cm; Wt 81.8 kg
[2025-02-11 16:24] LABS: BASO # 0.1 10^3/uL (0.0-0.2); BASO % 0.7 % (0.0-1.0); EOS # 0.1 10^3/uL (0.0-0.5); EOS % 1.4 % (0.0-3.0); LYMPH # 1.6 10^3/uL (1.5-5.0); LYMPH % 20.4 % (24.0-44.0); MONO # 0.7 10^3/uL (0.0-0.8); MONO % 8.7 % (2.0-8.0); NEUTROPHILS # 5.5 10^3/uL (1.5-8.5); NEUTROPHILS % 68.4 % (36.0-66.0); PLATELET COUNT, AUTOMATED 241 10^3/uL (150-450)
[2025-02-11 16:48] LABS: CK-MB VALUE MASS 2.1 NG/ML (<3.6)
[2025-02-11 16:49] LABS: CALCIUM LEVEL 9.7 MG/DL (8.3-10.6); CARBON DIOXIDE LEVEL 26.0 MMOL/L (20-31); CHLORIDE LEVEL 102.0 MMOL/L (98-107); CREATININE FOR GFR 1.69 MG/DL (0.70-1.30); GLOMERULAR FILTRATION RATE 41.8 (>42); POTASSIUM SERUM 3.9 MMOL/L (3.5-5.1); SODIUM LEVEL 141.0 MMOL/L (136-145)
[2025-02-11 16:53] LABS: CPK CREATINE PHOSPHOKINASE 37.0 U/L (46-171); MB/CK RELATIVE INDEX 5.67 (< OR =4)
[2025-02-11 17:10] VITALS: BP 107/63
[2025-02-11] MEDS: NITROGLYCERIN 0.4 MG SUBL TABLET SL PRN (17:10)
[2025-02-11] MEDS ORDERED: LOSA100T5 PO (17:36)
[2025-02-11] MEDS ORDERED: METF-838 PO (17:36)
[2025-02-11] MEDS ORDERED: ELIQ5TAB PO (17:37)
[2025-02-11] MEDS ORDERED: ATEN50TA2 PO (17:37)
[2025-02-11] MEDS ORDERED: FURO40TA2 PO (17:37)
[2025-02-11] MEDS ORDERED: PANT-23 PO (17:37)
[2025-02-11] MEDS ORDERED: HOME MED LIST COMPLETE! XX SCH (17:40)
[2025-02-11 17:51] LABS: CK-MB VALUE MASS 2.1 NG/ML (<3.6)
[2025-02-11 17:52] LABS: CPK CREATINE PHOSPHOKINASE 36.0 U/L (46-171); MB/CK RELATIVE INDEX 5.83 (< OR =4)
[2025-02-11 20:45] VITALS: BP 129/70; TEMP 97.9; O2SAT 99
== END 2025-02-11 20:48 | disposition home or self-care (01) ==
LOC: M ED 15:51
DX: R07.9 Chest pain, unspecified (principal); I25.10 Atherosclerotic heart disease of native coronary artery without angina pectoris; I50.9 Heart failure, unspecified; I25.2 Old myocardial infarction; E11.9 Type 2 diabetes mellitus without complications; I11.0 Hypertensive heart disease with heart failure; E78.5 Hyperlipidemia, unspecified; D50.9 Iron deficiency anemia, unspecified; N18.32 Chronic kidney disease, stage 3b; G47.33 Obstructive sleep apnea (adult) (pediatric); K75.81 Nonalcoholic steatohepatitis (NASH); K74.60 Unspecified cirrhosis of liver; I85.10 Secondary esophageal varices without bleeding; Z95.5 Presence of coronary angioplasty implant and graft; Z95.0 Presence of cardiac pacemaker; Z79.82 Long term (current) use of aspirin; Z79.01 Long term (current) use of anticoagulants; Z79.899 Other long term (current) drug therapy; Z91.041 Radiographic dye allergy status; Z88.8 Allergy status to other drugs, medicaments and biological substances

== ENCOUNTER → 2025-03-25 | Outpatient (CLI) | payer MEDICARE ==
[~2025-03-25] MED LIST changes: +ATEN50TA2 PO; +ELIQ5TAB PO; +FURO40TA2 PO; +LOSA100T5 PO; +METF-838 PO; +PANT-23 PO
== END ==
LOC: M RAD 08:08
PROVIDERS: ATTEND Internal Medicine Gastroenterology
DX: K74.60 Unspecified cirrhosis of liver (principal)